=== PATIENT | female | born 1940 | race Hispanic/Latino ===

== ENCOUNTER 2017-08-11 12:31 | Inpatient (IN) | payer MEDICARE, MEDICAID ==
[~2017-08-11] VITALS: Ht 152.4 cm; Wt 54.4 kg
[~2017-08-11 12:31] MED LIST: A & D OINT1 APPLI1 TOPIC; CEPHALEXIN500 MG ORAL; CITALOPRAM HBR10 M1 ORAL; CITALOPRAM10 MG/5 M1 ORAL; COLACE100 MG ORAL; DEPAKOTE ER500 MG ORAL; DEPAKOTE500 MG PO; DILANTIN100 MG ORAL; FLUTICASONE PRO16 G1 NASAL; FOLIC ACID1 MG ORAL; GABAPENTIN400 MG ORAL; IBUPROFEN200 M2 ORAL; LEVAQUIN250 M1 ORAL; LIDOCAINE700 M1 TP; LIDODERM700 M1 TOPIC; LISINOPRIL10 MG ORAL; LISINOPRIL5 MG ORAL; MIACALCIN1 SPRAYS NASAL; NAPROSYN500 M1 ORAL; NAPROXEN SODIU550 M1 ORAL; OXYCODONE HCL5 MG ORAL; PHENYTOIN100 MG/4 M ORAL; RANITIDINE HCL150 M2 PO; TRAMADOL HCL50 MG ORAL; ULTRAM50 MG ORAL; VITAMIN A TP
--- NOTE | 2017-08-11 12:54 | Emergency Room Report ---
History of Present Illness General Chief Complaint: Multiple Trauma/Fall Source: Patient Present Illness HPI 76YOF with pain to left hip after accidental traumatic fall last night. Patient endorses falling on left hip. Per PMD, patient had x-rays at outpatient facility which showed communicated left hip fracture. Patient denies history of diabetes, hypertension, or CAD. Does not take ASA or other anticoagulation. Allergies: Coded Allergies: AMOXICILLIN (Verified Allergy, Severe, HIVES, RASH, 11/14/13) ACETAMINOPHEN (Verified Allergy, Mild, HIVES, GI UPSET, 11/14/13) CODEINE (Unverified Allergy, Unknown, Rash, 02/26/14) NSAIDS (NON-STEROIDAL ANTI-INFLAMMA (Verified Allergy, Unknown, 02/24/14) Patient allergic to all NSAid's according to Dr. Jarrett. Patient History Past Medical History: none Past Surgical History: none Pertinent Family History: none Social History: Denies: smoking, alcohol use, drug use Now: No Immunizations: UTD Nursing Documentation-PMH Hx Cardiac Problems: Yes Hx Hypertension: Yes Hx Cancer: No Hx Gastrointestinal Problems: Yes Hx Neurological Problems: Yes - Tinnitus Hx Cerebrovascular Accident: No - TINNITUS Hx Alzheimer's Disease: Yes Hx Seizures: Yes Hx Headaches: Yes Review of Systems All Other Systems: negative except mentioned in HPI Physical Exam Vital Signs Date Time Temp Pulse Resp B/P (MAP) Pulse Ox O2 Delivery O2 Flow Rate FiO2 08/11/17 12:33 98.1 74 20 80/48 94 Room Air Sp02 EP Interpretation: reviewed, normal General Appearance: normal inspection, well appearing, no apparent distress, alert, GCS 15, non-toxic Head: normocephalic, atraumatic Eyes: bilateral eye PERRL, bilateral eye EOMI ENT: normal ENT inspection, hearing grossly normal, normal pharynx, no angioedema, normal voice, TMs + canals normal, uvula midline, moist mucus membranes Neck: normal inspection, full range of motion, supple, thyroid normal, no meningismus, no bony tend Respiratory: normal inspection, lungs clear, normal breath sounds, no rhonchi, no respiratory distress, no retraction, no accessory muscle use, no wheezing, speaking full sentences Cardiovascular #1: regular rate, rhythm, no edema, no JVD, normal capillary refill Gastrointestinal: normal inspection, normal bowel sounds, non tender, soft, no mass, no peritonitis, non-distended, no guarding, no hernia, no pulsatile mass Genitourinary: no CVA tenderness Musculoskeletal: normal inspection, back normal, normal range of motion, no calf tenderness, pelvis stable - Left lower Leg: Externally rotated, shortened. 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 Matthews for medical surgical admission at [address] Grace consulted for Ortho at 220pm med surg admit Per verbal report from Radiologist, left comminuted hip fx Xrays of hip and pelvis pending Leuks 16k on labs but no shift. No cough/SOB or fever/chills suggestive of PNA. Unlikely UTI. Abd soft, NT. Likely stress reaction from fall/fx Rhythm Strip Diag. Results EP Interpretation: yes Rate: 74 Rhythm: NSR, no PVC's, no ectopy Last Vital Signs Date Time Temp Pulse Resp B/P (MAP) Pulse Ox O2 Delivery O2 Flow Rate FiO2 08/11/17 12:33 98.1 74 20 80/48 94 Room Air Status: improved Disposition: ADMITTED INPATIENT Condition: Stable JOSE A ARTIS M.D. Aug 11, 2017 12:54
[2017-08-11 13:04] VITALS: BP 104/60
[2017-08-11] MEDS ORDERED: PEPCID20 MG ORAL (13:23)
[2017-08-11] MEDS ORDERED: LOPRESSOR5 MG/5 ML ORAL (13:23)
[2017-08-11] MEDS ORDERED: NEURONTIN400 MG ORAL (13:23)
[2017-08-11] MEDS ORDERED: MILK OF MA400 MG/51 ORAL (13:23)
[2017-08-11] MEDS ORDERED: ATIVAN0.5 MG ORAL (13:23)
[2017-08-11 14:12] LABS: BASOPHILS % (AUTO) 0.5 % (0.0-2.0); EOSINOPHILS % (AUTO) 1.5 % (0.0-3.0); HEMATOCRIT 39.3 % (37.0-47.0); LYMPHOCYTES % (AUTO) 16.1 % (20.0-45.0); MEAN CORPUSCULAR VOLUME 105 FL (80-99); MONOCYTES % (AUTO) 9.3 % (1.0-10.0); NEUTROPHILS % (AUTO) 72.5 % (45.0-75.0); PLATELET COUNT 231 K/UL (150-450); RED BLOOD COUNT 3.75 M/UL (4.20-5.40); RED CELL DISTRIBUTION WIDTH 11.6 % (11.6-14.8); WHITE BLOOD COUNT 16.7 K/UL (4.8-10.8)
[2017-08-11 14:18] LABS: ANION GAP 11 mmol/L (5-15); BLOOD UREA NITROGEN 33 mg/dL (7-18); CALCIUM 8.6 MG/DL (8.5-10.1); CARBON DIOXIDE 27 MMOL/L (21-32); CHLORIDE 104 MMOL/L (98-107); POTASSIUM 4.9 MMOL/L (3.5-5.1); SODIUM 141 MMOL/L (136-145)
[2017-08-11 14:23] LABS: ALANINE AMINOTRANSFERASE 43 U/L (12-78); ALBUMIN/GLOBULIN RATIO 0.7 (1.0-2.7); ALKALINE PHOSPHATASE 82 U/L (46-116); ASPARTATE AMINO TRANSFERASE 37 U/L (15-37); BILIRUBIN,TOTAL 0.4 MG/DL (0.2-1.0)
--- NOTE | 2017-08-11 14:30 | Diagnostic Imaging Report ---
Indication: Pain status post fall Technique: CT of the left hip was performed utilizing automated exposure control without intravenous contrast material. Axial and sagittal and coronal images were generated. CT dose: Total DLP 847.92 mGycm; CTDI vol 29.58 mGy Comparison: CT of the pelvis 08/11/2014 Findings: There is an acute, mildly comminuted and displaced intertrochanteric fracture of the left femur. Limb foreshortening with upward displacement of the femoral shaft. No additional acute fracture is identified. There is mild overlying soft tissue swelling. There is remote/healed fracture deformity of the left inferior pubic ramus and left acetabulum, although the latter is very subtle. There are mild degenerative changes of the left hip manifested by very mild subchondral cystic change and tiny marginal osteophytes. No right hip fractures identified. Symphysis pubis within normal limits. Degenerative changes are partially visualized in the lower lumbar spine. Images of the visceral pelvis to measure diverticulosis without evidence to suggest acute diverticulitis. Bladder unremarkable in appearance. Uterus is atrophic. Impression: Acute, mildly comminuted and displaced intertrochanteric fracture of the left femur. Remote/healed fracture deformity of the left inferior pubic ramus and left acetabulum. Diverticulosis without evidence of acute diverticulitis. The CT scanner at [facility] is accredited by the [employer] and the scans are performed using protocols designed to limit radiation exposure to as low as reasonably achievable to attain images of sufficient resolution adequate for diagnostic evaluation.
--- NOTE | 2017-08-11 14:49 | Diagnostic Imaging Report ---
Indication: Pain Technique: 1. AP view of the pelvis 2. 2 views of the left hip Comparison: Correlation made to concurrent CT. Findings: Acute comminuted and displaced intertrochanteric fracture of the left femur. There is some foreshortening of the left leg. Left hip joint is preserved. There is remote fracture deformity of the left inferior pubic ramus. No right hip fracture identified. Bowel gas pattern is nonobstructive. No acute osseous abnormality seen. Atherosclerotic vascular opacification is noted. Impression: Acute, comminuted and displaced trochanteric fracture of the left femur.
[2017-08-11 14:55] VITALS: BP 103/55
[2017-08-11 16:09] VITALS: BP 96/49
[2017-08-11 16:45] VITALS: BP 106/56
[2017-08-11] MEDS ORDERED: LORazepam 0.5mg tab ORAL PRN (18:30)
[2017-08-11] MEDS ORDERED: Milk of Magnesia 30ml Ud ORAL PRN (18:30)
[2017-08-11] MEDS ORDERED: Lacri-Lube Opth Oint 3.5gm BOTH EYES ONE (18:30)
[2017-08-11] MEDS ORDERED: Artificial Tears 1.4% Op Soln BOTH EYES PRN (18:45)
--- NOTE | 2017-08-11 19:20 | Consultation ---
History of Present Illness General Date patient seen: Aug 11, 2017 Chief Complaint: Multiple Trauma/Fall Present Illness HPI 76 yo female with pain to left hip after accidental traumatic fall last night. The pt has hx of anxiety the pt is currently on depakote. the pt was seen in er for anxiety. the pt denied any suicidal/hi. the pt was in pain. the pt is not endorsing manic/psychotic sxs. Allergies: Coded Allergies: AMOXICILLIN (Verified Allergy, Severe, HIVES, RASH, 11/14/13) ACETAMINOPHEN (Verified Allergy, Mild, HIVES, GI UPSET, 11/14/13) CODEINE (Unverified Allergy, Unknown, Rash, 02/26/14) NSAIDS (NON-STEROIDAL ANTI-INFLAMMA (Verified Allergy, Unknown, 02/24/14) Patient allergic to all NSAid's according to Dr. Jarrett. Medication History Scheduled Calcitonin Wilson (Miacalcin), 1 SPRAYS NASAL DAILY, (Reported) Cephalexin* (Keflex*), 500 MG ORAL EVERY 6 HOURS, (Reported) Citalopram Hydrobromide (Citalopram Hbr), 10 MG ORAL DAILY, (Reported) Divalproex Sodium (Depakote), 500 MG PO BID, (Reported) Docusate Sodium* (Colace*), 100 MG ORAL TWICE A DAY, (Reported) Famotidine (Pepcid), 20 MG ORAL BEDTIME, (Reported) Fluticasone Propionate* (Fluticasone Propionate*), 1 SPRAY NASAL DAILY, ( Reported) Folic Acid* (Folic Acid*), 1 MG ORAL DAILY, (Reported) Gabapentin* (Gabapentin*), 400 MG ORAL THREE TIMES A DAY, (Reported) Gabapentin* (Neurontin*), 400 MG ORAL THREE TIMES A DAY, (Reported) Levofloxacin* (Levaquin*), 250 MG ORAL DAILY, (Reported) Lidocaine (Lidocaine), 700 MG TP DAILY, (Reported) Lisinopril* (Lisinopril*), 10 MG ORAL DAILY, (Reported) Lorazepam* (Ativan*), 0.5 MG ORAL Q12HR, (Reported) Magnesium Hydroxide* (Milk Of Magnesia*), 30 ML ORAL DAILY, (Reported) Metoprolol Tartrate* (Lopressor*), 100 MG ORAL BID, (Reported) Naproxen Sodium (Naproxen Sodium), 550 MG ORAL TWICE A DAY, (Reported) Phenytoin Sodium Extended* (Dilantin*), 300 MG ORAL BEDTIME, (Reported) Ranitidine HCl (Ranitidine HCl), 150 MG PO DAILY, (Reported) Scheduled PRN Oxycodone Hcl Ir* (Roxicodone Ir*), 2.5 MG ORAL Q4H PRN for For Pain, (Reported) Tramadol Hcl* (Ultram*), 50 MG ORAL Q4HR PRN for Moderate Breakthru Pain (5-7), (Reported) Miscellaneous Medications Vits A & D/White Pet/Lanolin (Vitamin A & D Ointment), 113.4 GM TP, (Reported) Patient History Healthcare decision maker Resuscitation status Full Code Advanced Directive on File No Review of Systems Psychiatric: Reports: prior hx, anxiety, emotional problems Physical Exam General Appearance: no apparent distress, alert Neurologic: alert, oriented x 3, responsive, depressed affect Last 24 Hour Vital Signs Date Time Temp Pulse Resp B/P (MAP) Pulse Ox O2 Delivery O2 Flow Rate FiO2 08/11/17 16:45 98.0 72 19 106/56 96 Room Air 08/11/17 16:20 97.8 70 11 96/49 96 Room Air 08/11/17 16:09 97.8 70 11 96/49 96 Room Air 08/11/17 14:55 97.8 76 18 103/55 96 Room Air 08/11/17 13:04 97.8 78 16 104/60 98 Room Air 08/11/17 12:33 98.1 74 20 80/48 94 Room Air Laboratory Tests Test 08/11/17 13:46 White Blood Count 16.7 K/UL (4.8-10.8) H Red Blood Count 3.75 M/UL (4.20-5.40) L Hemoglobin 13.0 G/DL (12.0-16.0) Hematocrit 39.3 % (37.0-47.0) Mean Corpuscular Volume 105 FL (80-99) H Mean Corpuscular Hemoglobin 34.7 PG (27.0-31.0) H Mean Corpuscular Hemoglobin Concent 33.1 G/DL (32.0-36.0) Red Cell Distribution Width 11.6 % (11.6-14.8) Platelet Count 231 K/UL (150-450) Mean Platelet Volume 9.4 FL (6.5-10.1) Neutrophils (%) (Auto) 72.5 % (45.0-75.0) Lymphocytes (%) (Auto) 16.1 % (20.0-45.0) L Monocytes (%) (Auto) 9.3 % (1.0-10.0) Eosinophils (%) (Auto) 1.5 % (0.0-3.0) Basophils (%) (Auto) 0.5 % (0.0-2.0) Prothrombin Time 10.5 SEC (9.30-11.50) Prothromb Time International Ratio 1.0 (0.9-1.1) Sodium Level 141 MMOL/L (136-145) Potassium Level 4.9 MMOL/L (3.5-5.1) Chloride Level 104 MMOL/L (98-107) Carbon Dioxide Level 27 MMOL/L (21-32) Anion Gap 11 mmol/L (5-15) Blood Urea Nitrogen 33 mg/dL (7-18) H Creatinine 1.0 MG/DL (0.55-1.30) Estimat Glomerular Filtration Rate mL/min (>60) Glucose Level 105 MG/DL (74-106) Calcium Level 8.6 MG/DL (8.5-10.1) Total Bilirubin 0.4 MG/DL (0.2-1.0) Aspartate Amino Transf (AST/SGOT) 37 U/L (15-37) Alanine Aminotransferase (ALT/SGPT) 43 U/L (12-78) Alkaline Phosphatase 82 U/L (46-116) Total Protein 7.6 G/DL (6.4-8.2) Albumin 3.0 G/DL (3.4-5.0) L Globulin 4.6 g/dL Albumin/Globulin Ratio 0.7 (1.0-2.7) L Height (Feet): 5 Height (Inches): 0.00 Weight (Pounds): 120 Medications Current Medications Medications (Trade) Dose Ordered Sig/Arthur Route PRN Reason Start Time Stop Time Status Last Admin Dose Admin Artificial Tears (Akwa-Tears) 1 drop DAILY PRN BOTH EYES Dry Eyes 08/11/17 18:45 09/10/17 18:44 Calcitonin Wilson (Miacalcin) 1 sprays DAILY NASAL 08/12/17 09:00 09/11/17 08:59 Divalproex Sodium (Depakote) 500 mg EVERY 12 HOURS ORAL 08/11/17 21:00 09/10/17 20:59 Famotidine (Pepcid) 20 mg DAILY ORAL 08/12/17 09:00 09/11/17 08:59 Fluticasone Propionate (Flonase) 2 spray DAILY NASAL 08/12/17 09:00 09/11/17 08:59 Folic Acid (Folate) 1 mg DAILY ORAL 08/12/17 09:00 09/11/17 08:59 Gabapentin (Neurontin) 400 mg Q8HR ORAL 08/11/17 22:00 09/10/17 21:59 Lorazepam (Ativan) 0.5 mg EVERY 12 HOURS PRN ORAL For Anxiety 08/11/17 18:30 08/18/17 18:29 Magnesium Hydroxide (Mom) 30 ml DAILYPRN PRN ORAL Constipation 08/11/17 18:30 09/10/17 18:29 Metoprolol Tartrate (Lopressor) 100 mg EVERY 12 HOURS ORAL 08/11/17 21:00 09/10/17 20:59 Phenytoin (Dilantin) 300 mg BEDTIME ORAL 08/11/17 21:00 09/10/17 20:59 Sodium Chloride 1,000 ml @ 70 mls/hr [id number] IV 08/11/17 18:00 09/10/17 17:59 08/11/17 18:02 Assessment/Plan Status: stable Assessment/Plan Anxiety d/o mdd ativan El Hernandez M.D. Aug 11, 2017 19:20
[2017-08-11 19:59] VITALS: BP 109/65
[2017-08-11] MEDS: Phenytoin 100mg cap ORAL SCH (21:10)
[2017-08-11] MEDS: Depakote 500mg tab ORAL SCH (21:10)
[2017-08-11 23:53] VITALS: BP 110/60
[2017-08-12] VITALS (20 sets, daily range): BP systolic 72–155; BP diastolic 35–75
[2017-08-12] MEDS ORDERED: Lidocaine 1% Plain 30 ml INJ ONE ×2 (08:00→15:00)
[2017-08-12] MEDS ORDERED: Midazolam 2mg/2ml Inj ONE (08:00)
[2017-08-12] MEDS ORDERED: LR 1000ml ONE (08:00)
[2017-08-12] MEDS ORDERED: NS Irrig 1000ml ONE (08:00)
[2017-08-12] MEDS ORDERED: Sterile Water Irrig 1000ml IRRIG ONE (08:00)
[2017-08-12] MEDS ORDERED: Flonase Nasal Inhaler 16gm NASAL SCH (09:00)
[2017-08-12] MEDS ORDERED: Lisinopril 10mg tab ORAL SCH (09:00)
[2017-08-12] MEDS: Depakote 500mg tab ORAL SCH ×2 (09:01→23:06)
[2017-08-12] MEDS: Docusate 100mg cap ORAL SCH ×2 (09:01→16:49)
[2017-08-12] MEDS ORDERED: traMADol 50mg tab ORAL PRN (12:45)
--- NOTE | 2017-08-12 13:47 | Consultation ---
Consult Note Consult Note asked to eval for Azotemin and fluctuating BP HPI 76YOF with pain to left hip after accidental traumatic fall last night. Patient endorses falling on left hip. Per PMD, patient had x-rays at outpatient facility which showed communicated left hip fracture. Patient denies history of diabetes, hypertension, or CAD. Does not take ASA or other anticoagulation. Allergies: AMOXICILLIN (Verified Allergy, Severe, HIVES, RASH, 11/14/13) ACETAMINOPHEN (Verified Allergy, Mild, HIVES, GI UPSET, 11/14/13) CODEINE (Unverified Allergy, Unknown, Rash, 02/26/14) NSAIDS (NON-STEROIDAL ANTI-INFLAMMA (Verified Allergy, Unknown, 02/24/14) Patient allergic to all NSAid's according to Dr. Jarrett. Hx Cardiac Problems: Yes Hx Hypertension: Yes Hx Gastrointestinal Problems: Yes Hx Neurological Problems: Yes - Tinnitus + TINNITUS Hx Alzheimer's Disease: Yes Hx Seizures: Yes Hx Headaches: Yes examined and data reviewed Assessment/Plan Closed left hip fracture Dehydration Hypotension on presentation HTN Osteoporosis Sz disorder Hydrate- correct lytes monitor H&H adjust BP meds Per ortho GIANNA AYALA Aug 12, 2017 13:47
[2017-08-12] MEDS ORDERED: Heparin 2000 units/Ns 1000ml INJ SCH (14:00)
[2017-08-12] MEDS ORDERED: Lidocaine 1% Plain 30 ml INJ SCH (14:00)
[2017-08-12] MEDS ORDERED: D5NS 1,000 ML IV SCH (14:30)
[2017-08-12] MEDS ORDERED: Heparin 2000 units/Ns 1000ml INJ ONE (15:00)
--- NOTE | 2017-08-12 15:27 | General Progress Note ---
Assessment/Plan Problem List: (1) Pain in limb ICD Codes: M79.609 - Pain in limb SNOMED: 16373502 (2) Seizure disorder ICD Codes: G40.909 - Seizure disorder SNOMED: 237623357 (3) Gait disturbance, post-stroke ICD Codes: I69.398 - Gait disturbance, post-stroke; R26.9 - Unspecified abnormalities of gait and mobility SNOMED: 284513875 (4) stroke, old (5) Closed left hip fracture ICD Codes: S72.002A - Fracture of unspecified part of neck of left femur, initial encounter for closed fracture SNOMED: 856618678 Qualifiers: Qualified Codes: S72.002A - Fracture of unspecified part of neck of left femur, initial encounter for closed fracture Status: progressing Assessment/Plan afebrile seizure s/p left hip fracture surgical clearance per dr freda garcia Subjective ROS Limited/Unobtainable: Yes Allergies: Coded Allergies: AMOXICILLIN (Verified Allergy, Severe, HIVES, RASH, 11/14/13) ACETAMINOPHEN (Verified Allergy, Mild, HIVES, GI UPSET, 11/14/13) CODEINE (Unverified Allergy, Unknown, Rash, 02/26/14) NSAIDS (NON-STEROIDAL ANTI-INFLAMMA (Verified Allergy, Unknown, 02/24/14) Patient allergic to all NSAid's according to Dr. Jarrett. Objective Last 24 Hour Vital Signs Date Time Temp Pulse Resp B/P (MAP) Pulse Ox O2 Delivery O2 Flow Rate FiO2 08/12/17 11:25 98.4 77 20 127/69 92 08/12/17 09:01 155/63 08/12/17 09:01 75 155/63 08/12/17 08:00 97.7 87 20 140/75 100 08/12/17 04:00 97.7 75 18 155/63 92 Room Air 08/11/17 23:53 97.9 82 20 110/60 93 Room Air 08/11/17 21:00 75 109/65 08/11/17 19:59 97.5 75 20 109/65 91 Room Air 08/11/17 16:45 98.0 72 19 106/56 96 Room Air 08/11/17 16:20 97.8 70 11 96/49 96 Room Air 08/11/17 16:09 97.8 70 11 96/49 96 Room Air Intake and Output 08/11/17 08/12/17 19:00 07:00 Intake Total 630 ml Balance 630 ml Intake IV Total 630 ml # Voids 3 # Bowel Movements 2 Height (Feet): 5 Height (Inches): 0.00 Weight (Pounds): 120 Neck: supple Cardiovascular: normal rate Respiratory/Chest: lungs clear Abdomen: soft Kvng Estrada MD Aug 12, 2017 15:27
--- NOTE | 2017-08-12 15:45 | History and Physical Report ---
NOTE: POOR AUDIO HISTORY OF PRESENT ILLNESS: The patient is here because of comminuted fracture of the left hip on the x-ray, also leukocytosis, which could be most likely due to the left fracture. The patient is complaining of left hip pain. Denies nausea, vomiting, or diarrhea. No chest pain. No shortness of breath. Denies cough. PAST MEDICAL HISTORY: Organic brain syndrome, history of GERD, history of hypertension, history of seizure disorder, history of allergic rhinitis, history of anemia, polyneuropathy, major depression, anxiety, and insomnia. PAST SURGICAL HISTORY: Denies. ALLERGIES: No known allergies. MEDICATIONS: Celexa, Colace, famotidine, folic acid, gabapentin, lisinopril, and ranitidine. FAMILY HISTORY: Noncontributory. SOCIAL HISTORY: Unable to obtain. REVIEW OF SYSTEMS: Unable to obtain. Poor historian. PHYSICAL EXAMINATION: VITAL SIGNS: Temperature is 98.1, pulse is 74, and blood pressure 104/60. HEENT: PERRLA. NECK: Supple. No lymphadenopathy. CHEST: Clear to auscultation. GASTROINTESTINAL: Soft, nontender, and nondistended. No organomegaly. EXTREMITIES: Decreased range of motion, likely due to pain. NEUROLOGIC: Oriented to name. She is at baseline. LABORATORY DATA: WBC of 16.7, hemoglobin 13, and platelets of 231,000. Sodium 141, potassium 4.1, BUN of 33, creatinine 1, and glucose of 105. ASSESSMENT AND PLAN: 1. Leukocytosis, could be also due to stress fracture. 2. Left hip pain due to fracture. I have asked Dr. Jigar Doyle to see the patient for possible open reduction and internal fixation and Dr. Umberto Natarajan has been consulted for ID, and Dr. Roland has been consulted for the hypotension/dehydration. Kvng Estrada M.D. DR: IRVIN JOB#: [id number] CC:
[2017-08-12] MEDS ORDERED: cloNIDine 1000mcg/10ml inj ONE (16:26)
[2017-08-12] MEDS ORDERED: Bupivacaine 0.5% Inj 30 ml vial INJ ONE (16:26)
[2017-08-12] MEDS ORDERED: LR 1000ml 1,000 ML IVLG SCH (16:50)
--- NOTE | 2017-08-12 16:59 | Anethesia Preoperative Eval ---
Anesthesia Pre-op PMH/ROS General Date of Evaluation: Aug 12, 2017 Time of Evaluation: 17:26 Anesthesiologist: Lola ASA Score: ASA 4 - Emergency Mallampati Score Class I : Soft palate, uvula, fauces, pillars visible Class II: Soft palate, uvula, fauces visible Class III: Soft palate, base of uvula visible Class IV: Only hard plate visible Mallampati Classification: Class II Surgeon: Vivek Diagnosis: L Hip Fx Surgical Procedure: ORIF L Hip Anesthesia History: none Family History: no anesthesia problems Allergies: Coded Allergies: AMOXICILLIN (Verified Allergy, Severe, HIVES, RASH, 11/14/13) ACETAMINOPHEN (Verified Allergy, Mild, HIVES, GI UPSET, 11/14/13) CODEINE (Unverified Allergy, Unknown, Rash, 02/26/14) NSAIDS (NON-STEROIDAL ANTI-INFLAMMA (Verified Allergy, Unknown, 02/24/14) Patient allergic to all NSAid's according to Dr. Jarrett. Medications: see eMAR Past Medical History Cardiovascular: Reports: HTN Gastrointestinal/Genitourinary: Reports: GERD Neurologic/Psychiatric: Reports: dementia - Alzheimers, Seizures, CVA Hematology/Immune: Reports: anemia Anesthesia Pre-op Phys. Exam Physician Exam Last Vital Signs Date Time Temp Pulse Resp B/P (MAP) Pulse Ox O2 Delivery O2 Flow Rate FiO2 08/12/17 15:57 98.0 74 20 122/59 92 08/12/17 04:00 Room Air Constitutional: NAD Neurologic: CN 2-12 intact Cardiovascular: RRR Respiratory: CTA Gastrointestinal: S/NT/ND Airway Exam Mallampati Score: Class II MO: limited ROM: limited Teeth: missing Anesthesia Pre-op A/P Labs Chemistry Test 08/12/17 14:30 C-Reactive Protein, Quantitative 13.7 mg/dL (0.00-0.90) H Risk Assessment & Plan Assessment: ASA 4E Plan: Spinal Status Change Before Surgery: No Pre-Antibiotics Dru Gram Ancef IV Given Within 1 Hr of Incision: Yes Time Given: 18:01 Lc Davila MD Aug 12, 2017 16:59
[2017-08-12] MEDS ORDERED: Labetalol 5mg/ml 20ml vial IV PRN (17:00)
[2017-08-12] MEDS ORDERED: Atropine Inj 1mg/10ml Syr IV PRN (17:00)
[2017-08-12] MEDS ORDERED: LORazepam Inj 2mg/ml 1ml IV PRN (17:00)
[2017-08-12] MEDS ORDERED: Midazolam 2mg/2ml Inj IVP PRN (17:00)
[2017-08-12] MEDS ORDERED: fentaNYL 100 mcg/2 mL IV PRN (17:00)
[2017-08-12] MEDS ORDERED: DiphenhydrAMINE 50mg/ml Inj IVP PRN (17:00)
--- NOTE | 2017-08-12 17:00 | Immediate Post-Op Evaluation ---
Immediate Post-Op Evalulation Immediate Post-Op Evalulation Procedure: ORIF L Hip Date of Evaluation: Aug 12, 2017 Time of Evaluation: 19:15 IV Fluids: 300 LR Blood Products: 0 Estimated Blood Loss: 50 Urinary Output: 100 Blood Pressure Systolic: 131 Blood Pressure Diastolic: 98 Pulse Rate: 88 Respiratory Rate: 16 O2 Sat by Pulse Oximetry: 100 Pain Score (1-10): 1 Nausea: No Vomiting: No Complications 0 Patient Status: awake, reacts, patent, none Dru Gram Ancef IV Given Within 1 Hr of Incision: Yes Time Given: 18:01 Lc Davila MD Aug 12, 2017 17:00
[2017-08-12] MEDS ORDERED: Bacitracin 50000 Units Vial ONE (17:08)
[2017-08-12] MEDS ORDERED: NeoSporin Gu Irrig 1ml Amp IRRIG ONE (17:08)
[2017-08-12] MEDS ORDERED: EPINEPHrine 1mg/1ml Amp ONE (17:13)
[2017-08-12] MEDS ORDERED: Bupivacaine 0.25% Inj 30ml INJ ONE (17:13)
[2017-08-12] MEDS ORDERED: Kenalog-40 1ml Vial ONE (17:30)
[2017-08-12] MEDS ORDERED: Duramorph PF 10mg/10ml amp IV ONE (17:30)
[2017-08-12] MEDS ORDERED: Morphine Sulfate PF 10 ML ONE (17:30)
[2017-08-12] MEDS ORDERED: Ketorolac 30mg Inj ONE (17:30)
[2017-08-12] MEDS ORDERED: D5 1/2NS w/KCl 20mEq 1,000 ML IV SCH (17:41)
--- NOTE | 2017-08-12 17:41 | Pre-Procedure Note/Attestation ---
Pre-Procedure Note/Attestation Complete Prior to Procedure Planned Procedure: left Procedure Narrative: hip orif Indications for Procedure Pre-Operative Diagnosis: left hip fracture Attestation I attest that I discussed the nature of the procedure; its benefits; risks and complications; and alternatives (and the risks and benefits of such alternatives ), prior to the procedure, with the patient (or the patient's legal small business representative). I attest that, if there was a reasonable possibility of needing a blood transfusion, the patient (or the patient's legal small business representative) was given the [facility] standardized written summary, pursuant to the [place] Blood Safety Act ([place] Health and Safety Code # 1645, as amended). I attest that I re-evaluated the patient just prior to the surgery and that there has been no change in the patient's H&P, except as documented below: JOHN GRACIA Aug 12, 2017 17:41
--- NOTE | 2017-08-12 17:42 | Operative Note - PDOC ---
Operative Note Operative Note Pre-op Diagnosis: left hip fracture Procedure: left hip orif Post-op Diagnosis: same as pre-op plus Operative Findings: consistent w/pre-op dx studies Anesthesia: regional Specimen: none Complications: none Condition: stable Estimated Blood Loss: none Implant(s) used?: Yes JOHN GRACIA Aug 12, 2017 17:42
[2017-08-12] MEDS ORDERED: Fleet's Enema 133ml RECTAL PRN ×2 (17:45→19:00)
[2017-08-12] MEDS ORDERED: Morphine Sulfate 2mg/ml Inj IVP PRN ×4 (17:45→23:45)
[2017-08-12] MEDS ORDERED: HYDROcodone/Acetamin 7.5/325 tab ORAL PRN ×2 (17:45→20:45)
[2017-08-12] MEDS ORDERED: Milk of Magnesia 30ml Ud ORAL PRN (17:45)
[2017-08-12] MEDS ORDERED: Norco 5mg/325mg tab ORAL PRN ×2 (17:45→20:45)
--- NOTE | 2017-08-12 17:47 | Cardiology Report ---
APPROVED REPORT EKG Measurement Heart [id number] Normal sinus rhythm Normal ECG
[2017-08-12] MEDS ORDERED: Docusate 100mg cap ORAL SCH (18:00)
[2017-08-12] MEDS ORDERED: Dyna-Hex 2% Top Sol 2oz TOPIC SCH ×2 (20:00)
[2017-08-12] MEDS ORDERED: Docusate Sod/Senna tab ORAL SCH (20:32)
--- NOTE | 2017-08-12 20:48 | Consultation ---
DATE OF CONSULTATION: 08/11/2017 ORTHOPEDIC CONSULTATION CONSULTING PHYSICIAN: Jigar Doyle M.D. REQUESTING PHYSICIAN: Kvng Estrada M.D. CHIEF COMPLAINT: Left hip pain. HISTORY OF PRESENT ILLNESS: The patient is a pleasant 76-year-old female, who presented to the ER with complaints of left hip pain. Imaging studies showed a comminuted left intertrochanteric hip fracture. Orthopedic consultation obtained for further care and recommendation. The patient has pain in the left hip. She denies any shortness of breath or chest pain. PHYSICAL EXAMINATION: Examination shows pain with internal and external rotation of the left hip. Posterior calf is soft. Neurovascular exam is normal. Dorsalis pedis +2. IMAGING STUDIES: Show a comminuted intertrochanteric hip fracture with significant moderate osteopenia. ASSESSMENT: Left comminuted intertochanteric hip fracture. DISCUSSION: At this point, we do proceed with open reduction and internal fixation. Risks, limitations, expectations, and complications of the procedure were discussed in detail. All questions are addressed. We are going to optimize her for surgery tomorrow. She is cleared for surgery. We will proceed tomorrow. She will be made NPO in anticipation of surgery tomorrow. Jigar Doyle M.D. DR: MARTIN JOB#: [id number] CC:
--- NOTE | 2017-08-12 22:05 | Cardiology Progress Note ---
Assessment/Plan Assessment/Plan The patient is seen and examined, full consult note will be dictated. Objective Last 24 Hour Vital Signs Date Time Temp Pulse Resp B/P (MAP) Pulse Ox O2 Delivery O2 Flow Rate FiO2 08/12/17 22:00 84 15 94/44 99 Nasal Cannula 3.0 08/12/17 21:45 91 17 88/53 98 Nasal Cannula 3.0 08/12/17 21:30 86 15 98/42 99 Nasal Cannula 3.0 08/12/17 21:15 89 21 91/47 99 Nasal Cannula 3.0 08/12/17 21:00 91 22 92/44 99 Nasal Cannula 3.0 08/12/17 20:45 93 20 89/40 99 Nasal Cannula 3.0 08/12/17 20:30 91 20 88/45 99 Nasal Cannula 3.0 08/12/17 20:15 91 20 95/38 99 Simple Mask 8.0 08/12/17 20:00 92 20 97/39 99 Simple Mask 8.0 08/12/17 19:45 89 20 88/40 99 Simple Mask 8.0 08/12/17 19:30 88 20 92/35 99 Simple Mask 8.0 08/12/17 19:14 86 20 109/45 99 Simple Mask 8.0 08/12/17 19:09 88 20 88/42 99 Simple Mask 8.0 08/12/17 19:08 88 16 100 08/12/17 19:04 97.1 83 20 72/45 99 Simple Mask 8.0 08/12/17 15:57 98.0 74 20 122/59 92 08/12/17 11:25 98.4 77 20 127/69 92 08/12/17 09:01 155/63 08/12/17 09:01 75 155/63 08/12/17 08:00 97.7 87 20 140/75 100 08/12/17 04:00 97.7 75 18 155/63 92 Room Air 08/11/17 23:53 97.9 82 20 110/60 93 Room Air Intake and Output 08/11/17 08/12/17 19:00 07:00 Intake Total 630 ml Balance 630 ml Intake IV Total 630 ml # Voids 3 # Bowel Movements 2 Laboratory Tests Test 08/12/17 14:30 C-Reactive Protein, Quantitative 13.7 mg/dL (0.00-0.90) H EUFEMIA LACEY Aug 12, 2017 22:05
--- NOTE | 2017-08-12 23:00 | Operative Note - Dictated ---
DATE OF OPERATION: 08/12/2017 PREOPERATIVE DIAGNOSIS: Left comminuted intertrochanteric hip fracture. POSTOPERATIVE DIAGNOSIS: Left comminuted intertrochanteric hip fracture. PROCEDURE: Open reduction and internal fixation of the left hip intertrochanteric fracture with intramedullary device. SURGEON: Jigar Doyle M.D. ANESTHESIA: Spinal. INDICATION FOR PROCEDURE: The patient had a comminuted intertrochanteric hip fracture. She was indicative for operative fixation. Risks, limitations, expectations, and complications of the procedure were discussed in detail. All questions were addressed. DESCRIPTION OF PROCEDURE: Informed consent was obtained. The patient was brought to the operating room and placed supine under spinal anesthesia. The patient was then carefully placed on the fracture table. Reduction under fractional fluoroscopic imaging was performed. Left hip was prepped and draped in a sterile manner. Ancef was administered. Time-out was performed. A standard lateral skin incision was then made. Guidewire was put in the proximal aspect of the femur. The proximal aspect of the femur was opened up with opening reamer. A short gamma nail was left in place. Through a second stab incision, a 95 mm cannulated screw was then placed through the neck-head junction. Through a third stab incision, a 32 mm distal locking screw was placed. The targeting device removed. Portal sites were copiously irrigated. Hemostasis was done using electrocautery. The fascia was approximated using 1-0 Vicryl suture, 2-0 Vicryl suture, and 3-0 Monocryl sutures. Jigar Doyle M.D. DR: LENCHO JOB#: [id number] CC:
[2017-08-12] MEDS: Phenytoin 100mg cap ORAL SCH (23:08)
[2017-08-12] MEDS: D5NS 1,000 ML IV SCH (23:57)
[2017-08-13] VITALS: BP 91/51
--- NOTE | 2017-08-13 | Progress Note ---
DATE: 08/12/2017 SUBJECTIVE: The patient has been having more anxiety today and taken for hip x-ray and CT scan. She is complaining of pain and has more anxiety today. MENTAL STATUS EXAMINATION: The patient is alert and oriented x3. Mood is neutral. Affect is constricted. Congruent with mood. Thought process is concrete. Thought content, no suicidal or homicidal ideation. ASSESSMENT: Anxiety disorder. PLAN: Continue with current medications. El Doss M.D. DR: Nadine JOB#: [id number] CC:
[2017-08-13] MEDS ORDERED: ceFAZolin sod 2 GM in D5W 110 ML IV SCH ×4 (01:00)
[2017-08-13] MEDS ORDERED: traMADol 50mg tab ORAL PRN (01:00)
[2017-08-13 04:00] VITALS: BP 98/44
[2017-08-13 05:34] LABS: HEMATOCRIT 26.2 % (37.0-47.0); MEAN CORPUSCULAR VOLUME 105 FL (80-99); PLATELET COUNT 86 K/UL (150-450); RED CELL DISTRIBUTION WIDTH 11.8 % (11.6-14.8); WHITE BLOOD COUNT 13.5 K/UL (4.8-10.8)
[2017-08-13 06:12] LABS: ALANINE AMINOTRANSFERASE 25 U/L (12-78); ALBUMIN/GLOBULIN RATIO 0.6 (1.0-2.7); ALKALINE PHOSPHATASE 52 U/L (46-116); ANION GAP 10 mmol/L (5-15); ASPARTATE AMINO TRANSFERASE 18 U/L (15-37); BILIRUBIN,TOTAL 0.4 MG/DL (0.2-1.0); BLOOD UREA NITROGEN 13 mg/dL (7-18); CALCIUM 7.2 MG/DL (8.5-10.1); CARBON DIOXIDE 20 MMOL/L (21-32); CHLORIDE 108 MMOL/L (98-107); CHOLESTEROL 101 MG/DL (< 200); CREATINE KINASE 153 U/L (26-308); CREATININE 0.6 MG/DL (0.55-1.30); FERRITIN 261 NG/ML (8-388); GAMMA GLUTAMYL TRANSPEPTIDASE 104 U/L (5-85); HDL CHOLESTEROL 36 MG/DL (40-60); PHOSPHORUS 2.6 MG/DL (2.5-4.9); POTASSIUM 3.5 MMOL/L (3.5-5.1); SODIUM 138 MMOL/L (136-145); TRIGLYCERIDES 50 MG/DL (30-150)
[2017-08-13 06:43] LABS: % IRON SATURATION 29 % (15-50); IRON 51 ug/dL (50-175); TOTAL IRON BINDING CAPACITY 177 ug/dL (250-450)
--- NOTE | 2017-08-13 07:45 | Consultation ---
DATE OF CONSULTATION: 08/12/2017 CARDIOLOGY CONSULTATION CONSULTING PHYSICIAN: Rafael Jasmine M.D. REFERRING PHYSICIAN: Kvng Estrada M.D. REASON FOR CONSULTATION: Preoperative cardiac evaluation for noncardiac surgery. HISTORY OF PRESENT ILLNESS: The patient is a very unfortunate 76-year-old female, who presents to the hospital with left knee pain after accidents, traumatic fall that occurred last night. The patient upon arrival to the emergency department underwent x-ray and was found to have a fracture of the neck of the left femur. She is awaiting open reduction and internal fixation of the left hip by Dr. Vivek barrientos. Cardiology consultation was made at the request of Dr. Estrada for preoperative cardiac evaluation and obtaining cardiac clearance. The patient does not have prior history of coronary artery disease, congestive heart failure, or cardiac arrhythmias. Prior to this event, she was capable of walking with no limitations. She is admitted to Med/Surg unit for further evaluation and management of fracture of neck of left femur. PAST MEDICAL HISTORY: 1. History of Alzheimer's dementia. 2. History of seizures. 3. History of headaches. 4. History of tinnitus. 5. History of gastroesophageal reflux disease. 6. History of hypertension. PAST SURGICAL HISTORY: None. ALLERGIES: Amoxicillin, acetaminophen, codeine, and nonsteroidal anti-inflammatory drug. MEDICATIONS: List of medications: 1. Calcitonin salmon one spray nasal daily. 2. Keflex 500 mg q.6 h. 3. Citalopram 10 mg p.o. daily. 4. Depakote 500 mg twice daily. 5. Colace 100 mg p.o. twice daily. 6. Pepcid 20 mg p.o. at bedtime. 7. Fluticasone propionate one spray nasal daily. 8. Folic acid 1 mg p.o. daily. 9. Gabapentin 400 mg three times a day. 10. Levofloxacin 250 mg p.o. daily for three days. 11. 700 mg p.o. daily. 12. Lisinopril 10 mg p.o. daily. 13. Lorazepam 0.5 mg q.12 h. 14. Milk of magnesia 30 mL p.o. daily. 15. Lopressor 100 mg p.o. twice daily. 16. Naproxen sodium 550 mg twice daily. 17. Oxycodone 2.5 mg q.4 h. p.r.n. pain. 18. Dilantin 300 mg at bedtime. 19. Ranitidine 150 mg p.o. daily. 20. Tramadol 50 mg p.o. q.4 h. as needed moderate pain. 21. Vitamin A and D ointment to apply daily. FAMILY HISTORY: No premature coronary disease in first-degree relatives. REVIEW OF SYSTEMS: HEENT: Denies any headache, diplopia, or blurred vision. CONSTITUTIONAL: Denies any fever, chills, night sweats, or weight loss. CARDIOVASCULAR: Denies any chest pain, shortness breath, PND, orthopnea, or leg swelling. PULMONARY: Denies any cough, hemoptysis, or wheezing. GASTROINTESTINAL: Denies any nausea, vomiting, diarrhea, constipation, abdominal pain, or GI bleed. GENITOURINARY: Denies any hematuria, dysuria, or incontinence. NEUROLOGIC: Denies any motor dysfunction, sensory deficit, or altered speech. MUSCULOSKELETAL: Complaining of left hip pain with tenderness. PHYSICAL EXAMINATION: VITAL SIGNS: Blood pressure was 80/48, pulse of 74, respirations 20, temperature 98.1 degrees Fahrenheit, and O2 saturation is 94% on room air. GENERAL: The patient is a very unfortunate 76-year-old female, in no apparent respiratory distress. Alert and oriented x4. HEENT: Atraumatic, normocephalic. Anicteric. Pupils are equal, round, and reactive to light and accommodation. Extraocular muscles intact. NECK: JVP less than 5 cm. No carotid bruit. Carotid upstrokes 2+ bilaterally. CARDIOVASCULAR: Normal S1 and S2. Regular rate and rhythm. No murmurs, gallops, or rubs. PMI is at the fourth intercostal space at the midclavicular line. LUNGS: Clear to auscultation bilaterally. ABDOMEN: Soft, nontender, and nondistended. No hepatosplenomegaly. Positive bowel sounds. EXTREMITIES: No evidence of edema, clubbing, or cyanosis. Left leg, external rotation is shortened. Significant tenderness of the proximal left femur. LABORATORY AND DIAGNOSTIC DATA: Laboratory findings, WBC 16.7, hemoglobin 13.0, hematocrit 39.3, and platelet count is 231,000. Sodium 141, potassium is 4.9, chloride 104, bicarbonate 27, BUN of 33, creatinine 1.0, and glucose 105. C-reactive protein 13.7. INR is 1.0. A 12-lead electrocardiogram shows sinus rhythm at a rate of [address] and T-wave abnormalities. ASSESSMENT AND PLAN: The patient is a very pleasant 76-year-old female, who is asymptomatic from the cardiac standpoint, no prior history of coronary artery disease or myocardial infarction, who is awaiting for open reduction and internal fixation of left femur, and the patient had a 12-lead electrocardiogram, does not show any evidence of ischemia. The patient is cleared for the above intermediate-risk surgery with the risk of coronary events perioperatively estimated to be less than 1%. In view of her arriving blood pressure to this center, I would consider intravenous bolus 1000 mL of normal saline. The patient will require to have DVT prophylaxis following the procedure for 35 days. I would like to thank, Dr. Estrada, for allowing me to participate in the care of this patient. Rafael Jasmine M.D. DR: RICHARD JOB#: [id number] CC:
[2017-08-13 08:00] VITALS: BP 104/50
--- NOTE | 2017-08-13 08:25 | General Progress Note ---
Assessment/Plan Problem List: (1) Pain in limb ICD Codes: M79.609 - Pain in limb SNOMED: 64587499 (2) Seizure disorder ICD Codes: G40.909 - Seizure disorder SNOMED: 855269257 (3) Gait disturbance, post-stroke ICD Codes: I69.398 - Gait disturbance, post-stroke; R26.9 - Unspecified abnormalities of gait and mobility SNOMED: 613848167 (4) stroke, old (5) Closed left hip fracture ICD Codes: S72.002A - Fracture of unspecified part of neck of left femur, initial encounter for closed fracture SNOMED: 222194711 Qualifiers: Qualified Codes: S72.002A - Fracture of unspecified part of neck of left femur, initial encounter for closed fracture Status: progressing Assessment/Plan afebrile s/p left hip fracture orif needs pt/ot in [facility] for monitering Subjective ROS Limited/Unobtainable: Yes Allergies: Coded Allergies: AMOXICILLIN (Verified Allergy, Severe, HIVES, RASH, 11/14/13) ACETAMINOPHEN (Verified Allergy, Mild, HIVES, GI UPSET, 11/14/13) CODEINE (Unverified Allergy, Unknown, Rash, 02/26/14) NSAIDS (NON-STEROIDAL ANTI-INFLAMMA (Verified Allergy, Unknown, 02/24/14) Patient allergic to all NSAid's according to Dr. Jarrett. Objective Last 24 Hour Vital Signs Date Time Temp Pulse Resp B/P (MAP) Pulse Ox O2 Delivery O2 Flow Rate FiO2 08/13/17 04:00 97.4 84 15 98/44 98 Nasal Cannula 3.0 08/13/17 00:00 97.4 86 15 91/51 98 Nasal Cannula 3.0 08/12/17 23:00 85 08/12/17 22:05 97.8 84 15 94/44 99 Nasal Cannula 3.0 08/12/17 22:00 84 15 94/44 99 Nasal Cannula 3.0 08/12/17 21:45 91 17 88/53 98 Nasal Cannula 3.0 08/12/17 21:30 86 15 98/42 99 Nasal Cannula 3.0 08/12/17 21:15 89 21 91/47 99 Nasal Cannula 3.0 08/12/17 21:00 84 94/44 08/12/17 21:00 91 22 92/44 99 Nasal Cannula 3.0 08/12/17 20:45 93 20 89/40 99 Nasal Cannula 3.0 08/12/17 20:30 91 20 88/45 99 Nasal Cannula 3.0 08/12/17 20:15 91 20 95/38 99 Simple Mask 8.0 08/12/17 20:00 92 20 97/39 99 Simple Mask 8.0 08/12/17 19:45 89 20 88/40 99 Simple Mask 8.0 08/12/17 19:30 88 20 92/35 99 Simple Mask 8.0 08/12/17 19:14 86 20 109/45 99 Simple Mask 8.0 08/12/17 19:09 88 20 88/42 99 Simple Mask 8.0 08/12/17 19:08 88 16 100 08/12/17 19:04 97.1 83 20 72/45 99 Simple Mask 8.0 08/12/17 15:57 98.0 74 20 122/59 92 08/12/17 11:25 98.4 77 20 127/69 92 08/12/17 09:01 155/63 08/12/17 09:01 75 155/63 Intake and Output 08/12/17 08/13/17 19:00 07:00 Intake Total 2848.75 ml Output Total 400 ml Balance 2448.75 ml Intake Oral 50 ml IV Total 2798.75 ml Output Urine Total 350 ml Estimated Blood Loss 50 ml Laboratory Tests 08/12/17 14:30: C-Reactive Protein, Quantitative 13.7H 08/13/17 04:10: White Blood Count 13.5H, Red Blood Count 2.50L, Hemoglobin 9.0L, Hematocrit 26.2L, Mean Corpuscular Volume 105H, Mean Corpuscular Hemoglobin 35.9H, Mean Corpuscular Hemoglobin Concent 34.2, Red Cell Distribution Width 11.8, Platelet Count 86L, Mean Platelet Volume 6.6, Neutrophils (%) (Auto) , Lymphocytes (%) ( Auto) , Monocytes (%) (Auto) , Eosinophils (%) (Auto) , Basophils (%) (Auto) , Neutrophils % (Manual) [Pending], Lymphocytes % (Manual) [Pending], Platelet Estimate [Pending], Platelet Morphology [Pending], Sodium Level 138, Potassium Level 3.5, Chloride Level 108H, Carbon Dioxide Level 20L, Anion Gap 10, Blood Urea Nitrogen 13, Creatinine 0.6, Estimat Glomerular Filtration Rate , Glucose Level 145H, Hemoglobin A1c 5.7, Uric Acid 3.5, Calcium Level 7.2L, Phosphorus Level 2.6, Magnesium Level 1.4L, Iron Level 51, Total Iron Binding Capacity 177L , Percent Iron Saturation 29, Unsaturated Iron Binding 126, Ferritin 261, Total Bilirubin 0.4, Gamma Glutamyl Transpeptidase 104H, Aspartate Amino Transf (AST/ SGOT) 18, Alanine Aminotransferase (ALT/SGPT) 25, Alkaline Phosphatase 52, Total Creatine Kinase 153, Troponin I 0.124H, Pro-B-Type Natriuretic Peptide 1478H, Total Protein 5.6L, Albumin 2.0L, Globulin 3.6, Albumin/Globulin Ratio 0.6L, Triglycerides Level 50, Cholesterol Level 101, LDL Cholesterol 56, HDL Cholesterol 36L, Cholesterol/HDL Ratio 2.8L, Vitamin B12 Level 1369H, Folate 29.1, Thyroid Stimulating Hormone (TSH) 1.899, Phenytoin (Dilantin) Level 10.1, Valproic Acid (Depakene) Level 44L Height (Feet): 5 Height (Inches): 0.00 Weight (Pounds): 120 Cardiovascular: normal rate Respiratory/Chest: lungs clear Abdomen: soft Kvng Estrada MD Aug 13, 2017 08:25
[2017-08-13] MEDS ORDERED: celeBREX 200mg Cap **SURGERY PATIENTS ONLY ORAL SCH (09:00)
[2017-08-13] MEDS ORDERED: ceFAZolin 2gm/50ml Premix 50 ML IV SCH (09:00)
[2017-08-13] MEDS ORDERED: Docusate Sod/Senna tab ORAL SCH (09:00)
[2017-08-13] MEDS ORDERED: Artificial Tears 1.4% Op Soln BOTH EYES PRN (09:00)
[2017-08-13] MEDS ORDERED: LORazepam 0.5mg tab ORAL PRN (09:00)
[2017-08-13] MEDS ORDERED: Lisinopril 10mg tab ORAL SCH (09:00)
[2017-08-13] MEDS: Flonase Nasal Inhaler 16gm NASAL SCH (09:12)
[2017-08-13] MEDS: Depakote 500mg tab ORAL SCH ×2 (09:14→20:44)
--- NOTE | 2017-08-13 09:15 | Consultation ---
DATE OF CONSULTATION: 08/12/2017 INFECTIOUS DISEASE CONSULTATION CONSULTING PHYSICIAN: Jamshid Begmu M.D. PRIMARY ATTENDING PHYSICIAN: Kvng Estrada M.D. REASON FOR CONSULT: Leukocytosis. HISTORY OF PRESENT ILLNESS: This is a 76-year-old female admitted yesterday from home. She had a fall. She states that when she had sudden tinnitus in her ear and then fall down. Denies passing out. She states that she was able to take stairs rail. After the fall, she has pain in the left hip and lower extremity. At this point, the patient has comminuted intertrochanteric fracture of the left hip that seems to be acute. PAST MEDICAL HISTORY: Significant for stroke, migraine, colitis, and diverticulosis. The patient had multiple falls, had compression fracture of lumbar spine , has history of dementia. ALLERGIES: Allergic to Tylenol, amoxicillin, codeine, and nonsteroidal anti-inflammatory agents. MEDICATIONS: Getting calcitonin, Flonase, folic acid, temazepam, Colace, lisinopril, gabapentin, Depakote, phenytoin, metoprolol, Artificial Tears, lorazepam, magnesium hydroxide, and potassium chloride. SOCIAL HISTORY: Single. Has no children. lives with parents. REVIEW OF SYSTEMS: No fever. No chills. No nausea. No vomiting. No diarrhea. No problem passing urine. No coughing. Seems to have some lapse in the memory. PHYSICAL EXAMINATION: VITAL SIGNS: Temperature 97.7, pulse 75, and blood pressure 155/63. GENERAL APPEARANCE: No acute distress. HEAD AND NECK: [place] conjunctivae. No oral lesion. HEART: Regular. LUNGS: Clear. ABDOMEN: Soft and nontender. EXTREMITIES: She has no edema. Has internal rotation of the left lower extremity. LABORATORY DATA: WBC 16.7, hemoglobin 13, hematocrit 39.3, and platelets 231,000. Sodium 141, potassium 4.9, chloride 104, bicarbonate 27, BUN 33, creatinine 1, and glucose 105. Albumin 3. Hip CT showed acute mildly comminuted and displaced intertrochanteric fracture of the left femur. IMPRESSION: 1. Leukocytosis, likely secondary to fall and fracture of the hip. 2. Left hip fracture. 3. Osteoporosis. 4. History of multiple falls. 5. History of colitis. RECOMMENDATIONS: Observe off antibiotics. We will follow up the cultures. At the end of my exam, I thank Dr. Estrada for involving me in the care of this patient. Jamshid Begum M.D. DR: LUANA JOB#: [id number] CC: DEBRA
--- NOTE | 2017-08-13 10:21 | Infectious Diseases Prog Note ---
Assessment/Plan Assessment/Plan A Leukocytosis improving Left hip fracture s/p ORIF Osteoporosis P: will f/u CXR & UA Subjective ROS Limited/Unobtainable: No Constitutional: Reports: no symptoms Respiratory: Reports: no symptoms Cardiovascular: Reports: no symptoms Gastrointestinal/Abdominal: Reports: no symptoms Genitourinary: Reports: no symptoms Musculoskeletal: Reports: pain, other - had ORIF of left hip Allergies: Coded Allergies: AMOXICILLIN (Verified Allergy, Severe, HIVES, RASH, 11/14/13) ACETAMINOPHEN (Verified Allergy, Mild, HIVES, GI UPSET, 11/14/13) CODEINE (Unverified Allergy, Unknown, Rash, 02/26/14) NSAIDS (NON-STEROIDAL ANTI-INFLAMMA (Verified Allergy, Unknown, 02/24/14) Patient allergic to all NSAid's according to Dr. Jarrett. Objective Vital Signs Last 24 Hour Vital Signs Date Time Temp Pulse Resp B/P (MAP) Pulse Ox O2 Delivery O2 Flow Rate FiO2 08/13/17 09:13 84 104/50 08/13/17 08:00 97.0 84 18 104/50 100 Nasal Cannula 3.0 08/13/17 04:00 97.4 84 15 98/44 98 Nasal Cannula 3.0 08/13/17 00:00 97.4 86 15 91/51 98 Nasal Cannula 3.0 08/12/17 23:00 85 08/12/17 22:05 97.8 84 15 94/44 99 Nasal Cannula 3.0 08/12/17 22:00 84 15 94/44 99 Nasal Cannula 3.0 08/12/17 21:45 91 17 88/53 98 Nasal Cannula 3.0 08/12/17 21:30 86 15 98/42 99 Nasal Cannula 3.0 08/12/17 21:15 89 21 91/47 99 Nasal Cannula 3.0 08/12/17 21:00 84 94/44 08/12/17 21:00 91 22 92/44 99 Nasal Cannula 3.0 08/12/17 20:45 93 20 89/40 99 Nasal Cannula 3.0 08/12/17 20:30 91 20 88/45 99 Nasal Cannula 3.0 08/12/17 20:15 91 20 95/38 99 Simple Mask 8.0 08/12/17 20:00 92 20 97/39 99 Simple Mask 8.0 08/12/17 19:45 89 20 88/40 99 Simple Mask 8.0 08/12/17 19:30 88 20 92/35 99 Simple Mask 8.0 08/12/17 19:14 86 20 109/45 99 Simple Mask 8.0 08/12/17 19:09 88 20 88/42 99 Simple Mask 8.0 08/12/17 19:08 88 16 100 08/12/17 19:04 97.1 83 20 72/45 99 Simple Mask 8.0 08/12/17 15:57 98.0 74 20 122/59 92 08/12/17 11:25 98.4 77 20 127/69 92 Height (Feet): 5 Height (Inches): 0.00 Weight (Pounds): 120 General Appearance: no acute distress HEENT: mucous membranes moist Respiratory/Chest: lungs clear, other - O2 by cannula Abdomen: soft, non tender Extremities: no edema Laboratory Tests Test 08/12/17 14:30 08/13/17 04:10 C-Reactive Protein, Quantitative 13.7 mg/dL (0.00-0.90) H White Blood Count 13.5 K/UL (4.8-10.8) H Red Blood Count 2.50 M/UL (4.20-5.40) L Hemoglobin 9.0 G/DL (12.0-16.0) L Hematocrit 26.2 % (37.0-47.0) L Mean Corpuscular Volume 105 FL (80-99) H Mean Corpuscular Hemoglobin 35.9 PG (27.0-31.0) H Mean Corpuscular Hemoglobin Concent 34.2 G/DL (32.0-36.0) Red Cell Distribution Width 11.8 % (11.6-14.8) Platelet Count 86 K/UL (150-450) L Mean Platelet Volume 6.6 FL (6.5-10.1) Neutrophils (%) (Auto) % (45.0-75.0) Lymphocytes (%) (Auto) % (20.0-45.0) Monocytes (%) (Auto) % (1.0-10.0) Eosinophils (%) (Auto) % (0.0-3.0) Basophils (%) (Auto) % (0.0-2.0) Neutrophils % (Manual) Pending Lymphocytes % (Manual) Pending Platelet Estimate Pending Platelet Morphology Pending Sodium Level 138 MMOL/L (136-145) Potassium Level 3.5 MMOL/L (3.5-5.1) Chloride Level 108 MMOL/L (98-107) H Carbon Dioxide Level 20 MMOL/L (21-32) L Anion Gap 10 mmol/L (5-15) Blood Urea Nitrogen 13 mg/dL (7-18) Creatinine 0.6 MG/DL (0.55-1.30) Estimat Glomerular Filtration Rate mL/min (>60) Glucose Level 145 MG/DL (74-106) H Hemoglobin A1c 5.7 % (4.3-6.0) Uric Acid 3.5 MG/DL (2.6-7.2) Calcium Level 7.2 MG/DL (8.5-10.1) L Phosphorus Level 2.6 MG/DL (2.5-4.9) Magnesium Level 1.4 MG/DL (1.8-2.4) L Iron Level 51 ug/dL (50-175) Total Iron Binding Capacity 177 ug/dL (250-450) L Percent Iron Saturation 29 % (15-50) Unsaturated Iron Binding 126 ug/dL (112-346) Ferritin 261 NG/ML (8-388) Total Bilirubin 0.4 MG/DL (0.2-1.0) Gamma Glutamyl Transpeptidase 104 U/L (5-85) H Aspartate Amino Transf (AST/SGOT) 18 U/L (15-37) Alanine Aminotransferase (ALT/SGPT) 25 U/L (12-78) Alkaline Phosphatase 52 U/L (46-116) Total Creatine Kinase 153 U/L (26-308) Troponin I 0.124 ng/mL (0.000-0.056) Pro-B-Type Natriuretic Peptide 1478 pg/mL (0-125) H Total Protein 5.6 G/DL (6.4-8.2) L Albumin 2.0 G/DL (3.4-5.0) L Globulin 3.6 g/dL Albumin/Globulin Ratio 0.6 (1.0-2.7) L Triglycerides Level 50 MG/DL (30-150) Cholesterol Level 101 MG/DL (< 200) LDL Cholesterol 56 mg/dL (<100) HDL Cholesterol 36 MG/DL (40-60) L Cholesterol/HDL Ratio 2.8 (3.3-4.4) L Vitamin B12 Level 1369 PG/ML (193-986) H Folate 29.1 NG/ML (8.6-58.9) Thyroid Stimulating Hormone (TSH) 1.899 uiU/mL (0.358-3.740) Phenytoin (Dilantin) Level 10.1 ug/mL (10-20) Valproic Acid (Depakene) Level 44 MCG/ML (50-100) L Current Medications Medications (Trade) Dose Ordered Sig/Arthur Route PRN Reason Start Time Stop Time Status Last Admin Dose Admin Artificial Tears (Akwa-Tears) 1 drop DAILY PRN BOTH EYES Dry Eyes 08/13/17 09:00 09/10/17 18:44 Calcitonin [place] (Miacalcin) 1 sprays DAILY NASAL 08/13/17 09:00 09/11/17 08:59 08/13/17 09:12 Dextrose/Sodium Chloride 1,000 ml @ 75 mls/hr [id number] IV 08/12/17 23:45 09/11/17 14:29 08/12/17 23:57 Divalproex Sodium (Depakote) 500 mg EVERY 12 HOURS ORAL 08/13/17 09:00 09/10/17 20:59 08/13/17 09:14 Docusate Sodium (Colace) 100 mg THREE TIMES A DAY ORAL 08/13/17 09:00 09/12/17 08:59 Famotidine (Pepcid) 20 mg BID ORAL 08/13/17 09:00 09/11/17 08:59 08/13/17 09:13 Fluticasone Propionate (Flonase) 2 spray DAILY NASAL 08/13/17 09:00 09/11/17 08:59 08/13/17 09:12 Gabapentin (Neurontin) 400 mg Q8HR ORAL 08/13/17 06:00 09/10/17 21:59 08/13/17 05:39 Lorazepam (Ativan) 0.5 mg EVERY 12 HOURS PRN ORAL For Anxiety 08/13/17 09:00 08/18/17 18:29 Magnesium Hydroxide (Mom) 30 ml DAILYPRN PRN ORAL Constipation 08/13/17 17:45 09/11/17 17:44 Magnesium Sulfate 100 ml @ 100 mls/hr Q1H IVPB 08/13/17 09:00 08/13/17 12:59 08/13/17 09:34 Metoprolol Tartrate (Lopressor) 100 mg EVERY 12 HOURS ORAL 08/13/17 09:00 09/10/17 20:59 08/13/17 09:13 Morphine Sulfate (Morphine Sulfate) 1 mg Q3H PRN IVP Pain scale 1-3 08/12/17 23:45 08/19/17 17:44 Morphine Sulfate (Morphine Sulfate) 2 mg Q3H PRN IVP Moderate Pain (Pain Scale 4-6) 08/12/17 23:45 08/19/17 17:44 Phenytoin (Dilantin) 300 mg BEDTIME ORAL 08/13/17 21:00 09/10/17 20:59 Senna/Docusate Sodium (Iva-Colace) 1 ea TWICE A DAY ORAL 08/13/17 09:00 09/11/17 20:31 08/13/17 09:13 Sodium Phosphate (Fleet's Sodium Phosl Enema) 118 ml DAILYPRN PRN RECTAL Constipation 08/13/17 19:00 09/11/17 17:44 Temazepam (Restoril) 7.5 mg DAILY PRN ORAL Insomnia 08/13/17 09:00 08/19/17 17:44 Tramadol HCl (Ultram) 50 mg Q4H PRN ORAL For Pain 08/13/17 01:00 08/20/17 00:59 ROSALES DE LOS SANTOS Aug 13, 2017 10:21
[2017-08-13] MEDS: Docusate 100mg cap ORAL SCH ×3 (11:09→17:39)
--- NOTE | 2017-08-13 11:24 | Diagnostic Imaging Report ---
Indication: Dyspnea Comparison: 08/10/2014 A single view chest radiograph was obtained. Findings: Mild left perihilar atelectasis versus scarring demonstrated. Heart size is normal. The aorta is calcified. Bones are osteopenic. Fusion hardware noted in the upper cervical spine. IMPRESSION: No acute disease
[2017-08-13 12:00] VITALS: BP 101/52
--- NOTE | 2017-08-13 12:43 | 48 Hour Post Anesthesia Eval ---
Post Anesthesia Evaluation Procedure: ORIF L Hip Date of Evaluation: Aug 13, 2017 Blood Pressure Systolic: 101 0: 52 Pulse Rate: 80 Respiratory Rate: 18 Temperature (Fahrenheit): 97.1 Airway: patent Nausea: No Vomiting: No Hydration Status: adequate Mental Status/LOC: patient returned to baseline Follow-up care needed: N/A PILO PORTER M.D. Aug 13, 2017 12:43
[2017-08-13] MEDS: D5NS 1,000 ML IV SCH (13:05)
--- NOTE | 2017-08-13 13:15 | Diagnostic Imaging Report ---
Indications: hip pain Findings: Fluoroscopic views of the left hip were obtained. Intraoperative imaging showing dynamic hip screw reduction of the intertrochanteric fracture. IMPRESSION: Intraoperative imaging
--- NOTE | 2017-08-13 13:17 | Nephrology Progress Note ---
Assessment/Plan Problem List: (1) Dehydration (2) Seizure disorder (3) Closed left hip fracture Assessment Closed left hip fracture Dehydration Hypotension on presentation HTN Osteoporosis Sz disorder Plan had surgery 08/12/17 Hydrate- correct lytes monitor H&H adjust BP meds PO Vit D Per ortho Subjective ROS Limited/Unobtainable: No Constitutional: Reports: malaise, weakness Objective Objective Last 24 Hour Vital Signs Date Time Temp Pulse Resp B/P (MAP) Pulse Ox O2 Delivery O2 Flow Rate FiO2 08/13/17 12:43 80 18 08/13/17 12:00 97.1 80 18 101/52 99 Nasal Cannula 3.0 08/13/17 12:00 80 08/13/17 09:13 84 104/50 08/13/17 08:00 97.0 84 18 104/50 100 Nasal Cannula 3.0 08/13/17 08:00 93 08/13/17 04:00 97.4 84 15 98/44 98 Nasal Cannula 3.0 08/13/17 00:00 97.4 86 15 91/51 98 Nasal Cannula 3.0 08/12/17 23:00 85 08/12/17 22:05 97.8 84 15 94/44 99 Nasal Cannula 3.0 08/12/17 22:00 84 15 94/44 99 Nasal Cannula 3.0 08/12/17 21:45 91 17 88/53 98 Nasal Cannula 3.0 08/12/17 21:30 86 15 98/42 99 Nasal Cannula 3.0 08/12/17 21:15 89 21 91/47 99 Nasal Cannula 3.0 08/12/17 21:00 84 94/44 08/12/17 21:00 91 22 92/44 99 Nasal Cannula 3.0 08/12/17 20:45 93 20 89/40 99 Nasal Cannula 3.0 08/12/17 20:30 91 20 88/45 99 Nasal Cannula 3.0 08/12/17 20:15 91 20 95/38 99 Simple Mask 8.0 08/12/17 20:00 92 20 97/39 99 Simple Mask 8.0 08/12/17 19:45 89 20 88/40 99 Simple Mask 8.0 08/12/17 19:30 88 20 92/35 99 Simple Mask 8.0 08/12/17 19:14 86 20 109/45 99 Simple Mask 8.0 08/12/17 19:09 88 20 88/42 99 Simple Mask 8.0 08/12/17 19:08 88 16 100 08/12/17 19:04 97.1 83 20 72/45 99 Simple Mask 8.0 08/12/17 15:57 98.0 74 20 122/59 92 Intake and Output 08/12/17 08/13/17 19:00 07:00 Intake Total 2848.75 ml Output Total 400 ml Balance 2448.75 ml Intake Oral 50 ml IV Total 2798.75 ml Output Urine Total 350 ml Estimated Blood Loss 50 ml Laboratory Tests 08/12/17 14:30: C-Reactive Protein, Quantitative 13.7H 08/13/17 04:10: White Blood Count 13.5H, Red Blood Count 2.50L, Hemoglobin 9.0L, Hematocrit 26.2L, Mean Corpuscular Volume 105H, Mean Corpuscular Hemoglobin 35.9H, Mean Corpuscular Hemoglobin Concent 34.2, Red Cell Distribution Width 11.8, Platelet Count 86L, Mean Platelet Volume 6.6, Neutrophils (%) (Auto) , Lymphocytes (%) ( Auto) , Monocytes (%) (Auto) , Eosinophils (%) (Auto) , Basophils (%) (Auto) , Differential Total Cells Counted 100, Neutrophils % (Manual) 80H, Lymphocytes % (Manual) 10L, Monocytes % (Manual) 8, Eosinophils % (Manual) 0, Basophils % ( Manual) 1, Band Neutrophils 1, Platelet Estimate DecreasedL, Platelet Morphology Normal, Macrocytosis 1+, Sodium Level 138, Potassium Level 3.5, Chloride Level 108H, Carbon Dioxide Level 20L, Anion Gap 10, Blood Urea Nitrogen 13, Creatinine 0.6, Estimat Glomerular Filtration Rate , Glucose Level 145H, Hemoglobin A1c 5.7, Uric Acid 3.5, Calcium Level 7.2L, Phosphorus Level 2.6, Magnesium Level 1.4L, Iron Level 51, Total Iron Binding Capacity 177L, Percent Iron Saturation 29, Unsaturated Iron Binding 126, Ferritin 261, Total Bilirubin 0.4, Gamma Glutamyl Transpeptidase 104H, Aspartate Amino Transf (AST/ SGOT) 18, Alanine Aminotransferase (ALT/SGPT) 25, Alkaline Phosphatase 52, Total Creatine Kinase 153, Troponin I 0.124H, Pro-B-Type Natriuretic Peptide 1478H, Total Protein 5.6L, Albumin 2.0L, Globulin 3.6, Albumin/Globulin Ratio 0.6L, Triglycerides Level 50, Cholesterol Level 101, LDL Cholesterol 56, HDL Cholesterol 36L, Cholesterol/HDL Ratio 2.8L, Vitamin B12 Level 1369H, Folate 29.1, Thyroid Stimulating Hormone (TSH) 1.899, Phenytoin (Dilantin) Level 10.1, Valproic Acid (Depakene) Level 44L Height (Feet): 5 Height (Inches): 0.00 Weight (Pounds): 120 General Appearance: no apparent distress Neck: normal alignment Cardiovascular: normal rate Respiratory/Chest: decreased breath sounds Abdomen: soft GIANNA AYALA Aug 13, 2017 13:17
[2017-08-13] MEDS ORDERED: Vitamin D 50,000 units cap ORAL SCH (15:00)
--- NOTE | 2017-08-13 15:39 | Cardiology Report ---
APPROVED REPORT EKG Measurement Heart [id number] Normal sinus rhythm Normal ECG
[2017-08-13 16:00] VITALS: BP 98/50
[2017-08-13] MEDS: Docusate Sod/Senna tab ORAL SCH (17:40)
[2017-08-13] MEDS ORDERED: Milk of Magnesia 30ml Ud ORAL PRN (17:45)
[2017-08-13] MEDS ORDERED: Fleet's Enema 133ml RECTAL PRN (19:00)
[2017-08-13 20:00] VITALS: BP 80/40
--- NOTE | 2017-08-13 20:17 | Progress Note ---
DATE: 08/13/2017 SUBJECTIVE: The patient is doing well. Compliant with medication. The patient is still in pain and has anxiety. We discussed prison placement versus assisted living. The patient agreed and is unable to understand process and communicate the information given to her. The sister is next of kin. I do recommend a nursing facility or nursing rehabilitation. MENTAL STATUS EXAMINATION: The patient is alert and oriented times self, place, and situation. Mood is anxious. Affect is blunted. Congruent with mood and appropriate. Thought process is linear. Thought content, no suicidal or homicidal ideation. ASSESSMENT: Anxiety disorder. PLAN: 1. We will continue the current medication. 2. Provide the patient with supportive therapy and reality orientation. El Doss M.D. DR: JYOTI JOB#: [id number] CC:
[2017-08-13] MEDS: Iron Sucrose 100 MG in NS 55 ML IV SCH (20:42)
[2017-08-13] MEDS: Metoprolol 25mg tab ORAL SCH (20:43)
[2017-08-13] MEDS: Phenytoin 100mg cap ORAL SCH (20:43)
--- NOTE | 2017-08-13 23:49 | Cardiology Progress Note ---
Assessment/Plan Assessment/Plan 1. Left hip ORIF, continue hydration, correction of anemia, pain control and DVT prophylaxis. 2. Hypotension, leading to slight elevation of trop I level, IV bolus to be considered. 3. Significant drop of H/H as well platelet count. Subjective Subjective Sinus rhythm at 84. Trop I slightly elevated. Had an episode of hypotension postop. NS 1000 cc ordered. Objective Last 24 Hour Vital Signs Date Time Temp Pulse Resp B/P (MAP) Pulse Ox O2 Delivery O2 Flow Rate FiO2 08/13/17 21:00 84 08/13/17 20:43 78 98/50 08/13/17 20:00 97.3 83 18 80/40 99 Nasal Cannula 3.0 08/13/17 16:00 78 08/13/17 16:00 97.8 83 18 98/50 99 Nasal Cannula 3.0 08/13/17 12:43 80 18 08/13/17 12:00 97.1 80 18 101/52 99 Nasal Cannula 3.0 08/13/17 12:00 80 08/13/17 09:13 84 104/50 08/13/17 08:00 97.0 84 18 104/50 100 Nasal Cannula 3.0 08/13/17 08:00 93 08/13/17 04:00 97.4 84 15 98/44 98 Nasal Cannula 3.0 08/13/17 00:00 97.4 86 15 91/51 98 Nasal Cannula 3.0 Intake and Output 08/12/17 08/13/17 19:00 07:00 Intake Total 2923.75 ml Output Total 400 ml Balance 2523.75 ml Intake Oral 50 ml IV Total 2873.75 ml Output Urine Total 350 ml Estimated Blood Loss 50 ml Laboratory Tests Test 08/13/17 04:10 White Blood Count 13.5 K/UL (4.8-10.8) H Red Blood Count 2.50 M/UL (4.20-5.40) L Hemoglobin 9.0 G/DL (12.0-16.0) L Hematocrit 26.2 % (37.0-47.0) L Mean Corpuscular Volume 105 FL (80-99) H Mean Corpuscular Hemoglobin 35.9 PG (27.0-31.0) H Mean Corpuscular Hemoglobin Concent 34.2 G/DL (32.0-36.0) Red Cell Distribution Width 11.8 % (11.6-14.8) Platelet Count 86 K/UL (150-450) L Mean Platelet Volume 6.6 FL (6.5-10.1) Neutrophils (%) (Auto) % (45.0-75.0) Lymphocytes (%) (Auto) % (20.0-45.0) Monocytes (%) (Auto) % (1.0-10.0) Eosinophils (%) (Auto) % (0.0-3.0) Basophils (%) (Auto) % (0.0-2.0) Differential Total Cells Counted 100 Neutrophils % (Manual) 80 % (45-75) H Lymphocytes % (Manual) 10 % (20-45) L Monocytes % (Manual) 8 % (1-10) Eosinophils % (Manual) 0 % (0-3) Basophils % (Manual) 1 % (0-2) Band Neutrophils 1 % (0-8) Platelet Estimate Decreased L Platelet Morphology Normal Macrocytosis 1+ Sodium Level 138 MMOL/L (136-145) Potassium Level 3.5 MMOL/L (3.5-5.1) Chloride Level 108 MMOL/L (98-107) H Carbon Dioxide Level 20 MMOL/L (21-32) L Anion Gap 10 mmol/L (5-15) Blood Urea Nitrogen 13 mg/dL (7-18) Creatinine 0.6 MG/DL (0.55-1.30) Estimat Glomerular Filtration Rate mL/min (>60) Glucose Level 145 MG/DL (74-106) H Hemoglobin A1c 5.7 % (4.3-6.0) Uric Acid 3.5 MG/DL (2.6-7.2) Calcium Level 7.2 MG/DL (8.5-10.1) L Phosphorus Level 2.6 MG/DL (2.5-4.9) Magnesium Level 1.4 MG/DL (1.8-2.4) L Iron Level 51 ug/dL (50-175) Total Iron Binding Capacity 177 ug/dL (250-450) L Percent Iron Saturation 29 % (15-50) Unsaturated Iron Binding 126 ug/dL (112-346) Ferritin 261 NG/ML (8-388) Total Bilirubin 0.4 MG/DL (0.2-1.0) Gamma Glutamyl Transpeptidase 104 U/L (5-85) H Aspartate Amino Transf (AST/SGOT) 18 U/L (15-37) Alanine Aminotransferase (ALT/SGPT) 25 U/L (12-78) Alkaline Phosphatase 52 U/L (46-116) Total Creatine Kinase 153 U/L (26-308) Troponin I 0.124 ng/mL (0.000-0.056) Pro-B-Type Natriuretic Peptide 1478 pg/mL (0-125) H Total Protein 5.6 G/DL (6.4-8.2) L Albumin 2.0 G/DL (3.4-5.0) L Globulin 3.6 g/dL Albumin/Globulin Ratio 0.6 (1.0-2.7) L Triglycerides Level 50 MG/DL (30-150) Cholesterol Level 101 MG/DL (< 200) LDL Cholesterol 56 mg/dL (<100) HDL Cholesterol 36 MG/DL (40-60) L Cholesterol/HDL Ratio 2.8 (3.3-4.4) L Vitamin B12 Level 1369 PG/ML (193-986) H Folate 29.1 NG/ML (8.6-58.9) Thyroid Stimulating Hormone (TSH) 1.899 uiU/mL (0.358-3.740) Phenytoin (Dilantin) Level 10.1 ug/mL (10-20) Valproic Acid (Depakene) Level 44 MCG/ML (50-100) L Objective HEENT: Atraumatic, normocephalic. Anicteric. Pupils are equal, round, and reactive to light and accommodation. Extraocular muscles intact. NECK: JVP less than 5 cm. No carotid bruit. Carotid upstrokes 2+ bilaterally. CARDIOVASCULAR: Normal S1 and S2. Regular rate and rhythm. No murmurs, gallops, or rubs. PMI is at the fourth intercostal space at the midclavicular line. LUNGS: Clear to auscultation bilaterally. ABDOMEN: Soft, nontender, and nondistended. No hepatosplenomegaly. Positive bowel sounds. EXTREMITIES: No evidence of edema, clubbing, or cyanosis. EUFEMIA LACEY Aug 13, 2017 23:49
[2017-08-14] VITALS: BP 80/40
[2017-08-14] MEDS: D5NS 1,000 ML IV SCH ×2 (02:25→15:29)
[2017-08-14 04:00] VITALS: BP 94/45
[2017-08-14 06:54] LABS: BASOPHILS % (AUTO) 0.4 % (0.0-2.0); HEMATOCRIT 26.2 % (37.0-47.0); HEMOGLOBIN 9.1 G/DL (12.0-16.0); LYMPHOCYTES % (AUTO) 13.5 % (20.0-45.0); MEAN CORPUSCULAR VOLUME 104 FL (80-99); MONOCYTES % (AUTO) 10.1 % (1.0-10.0); PLATELET COUNT 168 K/UL (150-450); RED BLOOD COUNT 2.51 M/UL (4.20-5.40); WHITE BLOOD COUNT 15.2 K/UL (4.8-10.8)
[2017-08-14 07:04] LABS: ALANINE AMINOTRANSFERASE 23 U/L (12-78); ALBUMIN 2.3 G/DL (3.4-5.0); ALBUMIN/GLOBULIN RATIO 0.6 (1.0-2.7); ALKALINE PHOSPHATASE 69 U/L (46-116); ANION GAP 6 mmol/L (5-15); ASPARTATE AMINO TRANSFERASE 24 U/L (15-37); BILIRUBIN,TOTAL 0.4 MG/DL (0.2-1.0); BLOOD UREA NITROGEN 16 mg/dL (7-18); CALCIUM 7.6 MG/DL (8.5-10.1); CARBON DIOXIDE 23 MMOL/L (21-32); CHLORIDE 106 MMOL/L (98-107); CREATININE 0.6 MG/DL (0.55-1.30); PHOSPHORUS 2.6 MG/DL (2.5-4.9); POTASSIUM 4.5 MMOL/L (3.5-5.1); SODIUM 135 MMOL/L (136-145)
[2017-08-14 08:00] VITALS: BP 113/54
[2017-08-14] MEDS: Docusate Sod/Senna tab ORAL SCH ×2 (08:57→17:41)
[2017-08-14] MEDS: Docusate 100mg cap ORAL SCH ×3 (08:57→17:41)
[2017-08-14] MEDS: Depakote 500mg tab ORAL SCH ×2 (08:57→20:20)
[2017-08-14] MEDS: Flonase Nasal Inhaler 16gm NASAL SCH (08:57)
[2017-08-14] MEDS: Metoprolol 25mg tab ORAL SCH (08:58)
--- NOTE | 2017-08-14 11:12 | Infectious Diseases Prog Note ---
Assessment/Plan Assessment/Plan A Leukocytosis secondary to trauma & surgery Left hip fracture s/p ORIF Osteoporosis Anemia P: observe off antibiotic Subjective ROS Limited/Unobtainable: No Constitutional: Reports: no symptoms Respiratory: Reports: no symptoms Gastrointestinal/Abdominal: Reports: no symptoms Genitourinary: Reports: no symptoms Neurologic: Reports: other - hard of hearing Musculoskeletal: Reports: pain, other - left hip Allergies: Coded Allergies: AMOXICILLIN (Verified Allergy, Severe, HIVES, RASH, 11/14/13) ACETAMINOPHEN (Verified Allergy, Mild, HIVES, GI UPSET, 11/14/13) CODEINE (Unverified Allergy, Unknown, Rash, 02/26/14) NSAIDS (NON-STEROIDAL ANTI-INFLAMMA (Verified Allergy, Unknown, 02/24/14) Patient allergic to all NSAid's according to Dr. Jarrett. Objective Vital Signs Last 24 Hour Vital Signs Date Time Temp Pulse Resp B/P (MAP) Pulse Ox O2 Delivery O2 Flow Rate FiO2 08/14/17 08:58 84 113/54 08/14/17 08:00 98.2 84 18 113/54 97 Nasal Cannula 2.0 08/14/17 08:00 80 08/14/17 04:00 97.2 84 18 94/45 94 Nasal Cannula 3.0 08/14/17 00:00 97.3 83 18 80/40 99 Nasal Cannula 3.0 08/13/17 21:00 84 08/13/17 20:43 78 98/50 08/13/17 20:00 97.3 83 18 80/40 99 Nasal Cannula 3.0 08/13/17 16:00 78 08/13/17 16:00 97.8 83 18 98/50 99 Nasal Cannula 3.0 08/13/17 12:43 80 18 08/13/17 12:00 97.1 80 18 101/52 99 Nasal Cannula 3.0 08/13/17 12:00 80 Height (Feet): 5 Height (Inches): 0.00 Weight (Pounds): 120 General Appearance: no acute distress HEENT: mucous membranes moist Respiratory/Chest: lungs clear, other - Kyphosis Abdomen: soft, non tender Extremities: no edema Neurologic/Psychiatric: alert, oriented x 3, responsive Microbiology Date/Time Source Procedure Growth Status 08/11/17 16:35 Nasal Nares MRSA Culture - Final NO METHICILLIN RESISTANT STAPH AUREUS... Complete 08/11/17 16:35 Rectum VRE Culture - Final NO VANCOMYCIN RESISTANT ENTEROCOCCUS ... Complete Laboratory Tests Test 08/14/17 06:00 White Blood Count 15.2 K/UL (4.8-10.8) H Red Blood Count 2.51 M/UL (4.20-5.40) L Hemoglobin 9.1 G/DL (12.0-16.0) L Hematocrit 26.2 % (37.0-47.0) L Mean Corpuscular Volume 104 FL (80-99) H Mean Corpuscular Hemoglobin 36.2 PG (27.0-31.0) H Mean Corpuscular Hemoglobin Concent 34.7 G/DL (32.0-36.0) Red Cell Distribution Width 12.0 % (11.6-14.8) Platelet Count 168 K/UL (150-450) # Mean Platelet Volume 8.0 FL (6.5-10.1) Neutrophils (%) (Auto) 75.0 % (45.0-75.0) Lymphocytes (%) (Auto) 13.5 % (20.0-45.0) L Monocytes (%) (Auto) 10.1 % (1.0-10.0) H Eosinophils (%) (Auto) 1.0 % (0.0-3.0) Basophils (%) (Auto) 0.4 % (0.0-2.0) Sodium Level 135 MMOL/L (136-145) L Potassium Level 4.5 MMOL/L (3.5-5.1) Chloride Level 106 MMOL/L (98-107) Carbon Dioxide Level 23 MMOL/L (21-32) Anion Gap 6 mmol/L (5-15) Blood Urea Nitrogen 16 mg/dL (7-18) Creatinine 0.6 MG/DL (0.55-1.30) Estimat Glomerular Filtration Rate mL/min (>60) Glucose Level 114 MG/DL (74-106) H Uric Acid 4.0 MG/DL (2.6-7.2) Calcium Level 7.6 MG/DL (8.5-10.1) L Phosphorus Level 2.6 MG/DL (2.5-4.9) Magnesium Level 2.8 MG/DL (1.8-2.4) H Total Bilirubin 0.4 MG/DL (0.2-1.0) Aspartate Amino Transf (AST/SGOT) 24 U/L (15-37) Alanine Aminotransferase (ALT/SGPT) 23 U/L (12-78) Alkaline Phosphatase 69 U/L (46-116) C-Reactive Protein, Quantitative 14.4 mg/dL (0.00-0.90) H Pro-B-Type Natriuretic Peptide 2102 pg/mL (0-125) H Total Protein 5.9 G/DL (6.4-8.2) L Albumin 2.3 G/DL (3.4-5.0) L Globulin 3.6 g/dL Albumin/Globulin Ratio 0.6 (1.0-2.7) L Current Medications Medications (Trade) Dose Ordered Sig/Arthur Route PRN Reason Start Time Stop Time Status Last Admin Dose Admin Artificial Tears (Akwa-Tears) 1 drop DAILY PRN BOTH EYES Dry Eyes 08/13/17 09:00 09/10/17 18:44 Calcitonin Jackson (Miacalcin) 1 sprays DAILY NASAL 08/13/17 09:00 09/11/17 08:59 08/14/17 08:57 Dextrose/Sodium Chloride 1,000 ml @ 75 mls/hr [id number] IV 08/12/17 23:45 09/11/17 14:29 08/14/17 02:25 Divalproex Sodium (Depakote) 500 mg EVERY 12 HOURS ORAL 08/13/17 09:00 09/10/17 20:59 08/14/17 08:57 Docusate Sodium (Colace) 100 mg THREE TIMES A DAY ORAL 08/13/17 09:00 09/12/17 08:59 08/14/17 08:57 Ergocalciferol (Drisdol) 50,000 intlu We@1000 ORAL 08/13/17 15:00 09/12/17 14:59 08/13/17 15:26 Famotidine (Pepcid) 20 mg BID ORAL 08/13/17 09:00 09/11/17 08:59 08/14/17 08:57 Fluticasone Propionate (Flonase) 2 spray DAILY NASAL 08/13/17 09:00 09/11/17 08:59 08/14/17 08:57 Gabapentin (Neurontin) 400 mg Q8HR ORAL 08/13/17 06:00 09/10/17 21:59 08/14/17 05:20 Iron Sucrose 100 mg/Sodium Chloride 60 ml @ 240 mls/hr BEDTIME IV 08/13/17 21:00 08/17/17 21:14 08/13/17 20:42 Lorazepam (Ativan) 0.5 mg EVERY 12 HOURS PRN ORAL For Anxiety 08/13/17 09:00 08/18/17 18:29 Magnesium Hydroxide (Mom) 30 ml DAILYPRN PRN ORAL Constipation 08/13/17 17:45 09/11/17 17:44 Metoprolol Tartrate (Lopressor) 50 mg EVERY 12 HOURS ORAL 08/13/17 21:00 09/12/17 20:59 Morphine Sulfate (Morphine Sulfate) 1 mg Q3H PRN IVP Pain scale 1-3 08/12/17 23:45 08/19/17 17:44 Morphine Sulfate (Morphine Sulfate) 2 mg Q3H PRN IVP Moderate Pain (Pain Scale 4-6) 08/12/17 23:45 08/19/17 17:44 Phenytoin (Dilantin) 300 mg BEDTIME ORAL 08/13/17 21:00 09/10/17 20:59 08/13/17 20:43 Senna/Docusate Sodium (Iva-Colace) 1 tab TWICE A DAY ORAL 08/13/17 18:00 09/11/17 17:59 08/14/17 08:57 Sodium Phosphate (Fleet's Sodium Phosl Enema) 118 ml DAILYPRN PRN RECTAL Constipation 08/13/17 19:00 09/11/17 17:44 Temazepam (Restoril) 7.5 mg DAILY PRN ORAL Insomnia 08/13/17 09:00 08/19/17 17:44 Tramadol HCl (Ultram) 50 mg Q4H PRN ORAL For Pain 08/13/17 01:00 08/20/17 00:59 ROSALES DE LOS SANTOS Aug 14, 2017 11:12
[2017-08-14 12:00] VITALS: BP 100/58
[2017-08-14 16:00] VITALS: BP 101/56
--- NOTE | 2017-08-14 16:48 | Nephrology Progress Note ---
Assessment/Plan Problem List: (1) Dehydration (2) Seizure disorder (3) Closed left hip fracture Assessment Na lowering Closed left hip fracture Dehydration Hypotension on presentation HTN Osteoporosis Sz disorder HypoAlbuminemia Plan had surgery 08/12/17 DC IV fluid- Bollous Albumin correct lytes monitor H&H adjust BP meds PO Vit D Per ortho Subjective ROS Limited/Unobtainable: No Constitutional: Reports: malaise Objective Objective Last 24 Hour Vital Signs Date Time Temp Pulse Resp B/P (MAP) Pulse Ox O2 Delivery O2 Flow Rate FiO2 08/14/17 16:00 99.2 80 18 101/56 98 Nasal Cannula 2.0 08/14/17 16:00 91 08/14/17 12:00 98.2 85 18 100/58 94 Nasal Cannula 2.0 08/14/17 12:00 84 08/14/17 08:58 84 113/54 08/14/17 08:00 98.2 84 18 113/54 97 Nasal Cannula 2.0 08/14/17 08:00 80 08/14/17 04:00 97.2 84 18 94/45 94 Nasal Cannula 3.0 08/14/17 00:00 97.3 83 18 80/40 99 Nasal Cannula 3.0 08/13/17 21:00 84 08/13/17 20:43 78 98/50 08/13/17 20:00 97.3 83 18 80/40 99 Nasal Cannula 3.0 Intake and Output 08/13/17 08/14/17 19:00 07:00 Intake Total 1075 ml 897 ml Output Total 350 ml 300 ml Balance 725 ml 597 ml Intake Oral 700 ml IV Total 375 ml 897 ml Output Urine Total 350 ml 300 ml Stool Total 0 ml 0 ml Laboratory Tests 08/14/17 06:00: White Blood Count 15.2H, Red Blood Count 2.51L, Hemoglobin 9.1L, Hematocrit 26.2L, Mean Corpuscular Volume 104H, Mean Corpuscular Hemoglobin 36.2H, Mean Corpuscular Hemoglobin Concent 34.7, Red Cell Distribution Width 12.0, Platelet Count 168#, Mean Platelet Volume 8.0, Neutrophils (%) (Auto) 75.0, Lymphocytes ( %) (Auto) 13.5L, Monocytes (%) (Auto) 10.1H, Eosinophils (%) (Auto) 1.0, Basophils (%) (Auto) 0.4, Sodium Level 135L, Potassium Level 4.5, Chloride Level 106, Carbon Dioxide Level 23, Anion Gap 6, Blood Urea Nitrogen 16, Creatinine 0.6, Estimat Glomerular Filtration Rate , Glucose Level 114H, Uric Acid 4.0, Calcium Level 7.6L, Phosphorus Level 2.6, Magnesium Level 2.8H, Total Bilirubin 0.4, Aspartate Amino Transf (AST/SGOT) 24, Alanine Aminotransferase ( ALT/SGPT) 23, Alkaline Phosphatase 69, C-Reactive Protein, Quantitative 14.4H, Pro-B-Type Natriuretic Peptide 2102H, Total Protein 5.9L, Albumin 2.3L, Globulin 3.6, Albumin/Globulin Ratio 0.6L Height (Feet): 5 Height (Inches): 0.00 Weight (Pounds): 120 General Appearance: no apparent distress Respiratory/Chest: decreased breath sounds Abdomen: soft GIANNA AYALA Aug 14, 2017 16:48
[2017-08-14 20:00] VITALS: BP 100/47
[2017-08-14] MEDS: Phenytoin 100mg cap ORAL SCH (20:19)
[2017-08-14] MEDS: Iron Sucrose 100 MG in NS 55 ML IV SCH (20:24)
--- NOTE | 2017-08-14 23:14 | General Progress Note ---
Assessment/Plan Problem List: (1) Pain in limb ICD Codes: M79.609 - Pain in limb SNOMED: 98313756 (2) Seizure disorder ICD Codes: G40.909 - Seizure disorder SNOMED: 886101414 (3) Gait disturbance, post-stroke ICD Codes: I69.398 - Gait disturbance, post-stroke; R26.9 - Unspecified abnormalities of gait and mobility SNOMED: 359344734 (4) stroke, old (5) Closed left hip fracture ICD Codes: S72.002A - Fracture of unspecified part of neck of left femur, initial encounter for closed fracture SNOMED: 514242108 Qualifiers: Qualified Codes: S72.002A - Fracture of unspecified part of neck of left femur, initial encounter for closed fracture Status: progressing Assessment/Plan moniter afebrile reviewed chart and labs s/p left hip fracture orif Subjective ROS Limited/Unobtainable: Yes Allergies: Coded Allergies: AMOXICILLIN (Verified Allergy, Severe, HIVES, RASH, 11/14/13) ACETAMINOPHEN (Verified Allergy, Mild, HIVES, GI UPSET, 11/14/13) CODEINE (Unverified Allergy, Unknown, Rash, 02/26/14) NSAIDS (NON-STEROIDAL ANTI-INFLAMMA (Verified Allergy, Unknown, 02/24/14) Patient allergic to all NSAid's according to Dr. Jarrett. Objective Last 24 Hour Vital Signs Date Time Temp Pulse Resp B/P (MAP) Pulse Ox O2 Delivery O2 Flow Rate FiO2 08/14/17 20:00 101 08/14/17 20:00 98.0 65 18 100/47 92 Nasal Cannula 2.0 08/14/17 16:00 99.2 80 18 101/56 98 Nasal Cannula 2.0 08/14/17 16:00 91 08/14/17 12:00 98.2 85 18 100/58 94 Nasal Cannula 2.0 08/14/17 12:00 84 08/14/17 08:58 84 113/54 08/14/17 08:00 98.2 84 18 113/54 97 Nasal Cannula 2.0 08/14/17 08:00 80 08/14/17 04:00 97.2 84 18 94/45 94 Nasal Cannula 3.0 08/14/17 00:00 97.3 83 18 80/40 99 Nasal Cannula 3.0 Intake and Output 08/13/17 08/14/17 19:00 07:00 Intake Total 1075 ml 897 ml Output Total 350 ml 300 ml Balance 725 ml 597 ml Intake Oral 700 ml IV Total 375 ml 897 ml Output Urine Total 350 ml 300 ml Stool Total 0 ml 0 ml Laboratory Tests 08/14/17 06:00: White Blood Count 15.2H, Red Blood Count 2.51L, Hemoglobin 9.1L, Hematocrit 26.2L, Mean Corpuscular Volume 104H, Mean Corpuscular Hemoglobin 36.2H, Mean Corpuscular Hemoglobin Concent 34.7, Red Cell Distribution Width 12.0, Platelet Count 168#, Mean Platelet Volume 8.0, Neutrophils (%) (Auto) 75.0, Lymphocytes ( %) (Auto) 13.5L, Monocytes (%) (Auto) 10.1H, Eosinophils (%) (Auto) 1.0, Basophils (%) (Auto) 0.4, Sodium Level 135L, Potassium Level 4.5, Chloride Level 106, Carbon Dioxide Level 23, Anion Gap 6, Blood Urea Nitrogen 16, Creatinine 0.6, Estimat Glomerular Filtration Rate , Glucose Level 114H, Uric Acid 4.0, Calcium Level 7.6L, Phosphorus Level 2.6, Magnesium Level 2.8H, Total Bilirubin 0.4, Aspartate Amino Transf (AST/SGOT) 24, Alanine Aminotransferase ( ALT/SGPT) 23, Alkaline Phosphatase 69, C-Reactive Protein, Quantitative 15.6H, Pro-B-Type Natriuretic Peptide 2102H, Total Protein 5.9L, Albumin 2.3L, Globulin 3.6, Albumin/Globulin Ratio 0.6L Height (Feet): 5 Height (Inches): 0.00 Weight (Pounds): 120 Cardiovascular: regularly irregular Kvng Estrada MD Aug 14, 2017 23:14
--- NOTE | 2017-08-14 23:24 | Cardiology Progress Note ---
Assessment/Plan Assessment/Plan 1. Left hip ORIF, continue hydration, correction of anemia, pain control and DVT prophylaxis. 2. Hypotension, resolved, continue hydration. Subjective Subjective Sinus rhythm at 80.. Objective Last 24 Hour Vital Signs Date Time Temp Pulse Resp B/P (MAP) Pulse Ox O2 Delivery O2 Flow Rate FiO2 08/14/17 20:00 101 08/14/17 20:00 98.0 65 18 100/47 92 Nasal Cannula 2.0 08/14/17 16:00 99.2 80 18 101/56 98 Nasal Cannula 2.0 08/14/17 16:00 91 08/14/17 12:00 98.2 85 18 100/58 94 Nasal Cannula 2.0 08/14/17 12:00 84 08/14/17 08:58 84 113/54 08/14/17 08:00 98.2 84 18 113/54 97 Nasal Cannula 2.0 08/14/17 08:00 80 08/14/17 04:00 97.2 84 18 94/45 94 Nasal Cannula 3.0 08/14/17 00:00 97.3 83 18 80/40 99 Nasal Cannula 3.0 Intake and Output 08/13/17 08/14/17 19:00 07:00 Intake Total 1075 ml 897 ml Output Total 350 ml 300 ml Balance 725 ml 597 ml Intake Oral 700 ml IV Total 375 ml 897 ml Output Urine Total 350 ml 300 ml Stool Total 0 ml 0 ml Laboratory Tests Test 08/14/17 06:00 White Blood Count 15.2 K/UL (4.8-10.8) H Red Blood Count 2.51 M/UL (4.20-5.40) L Hemoglobin 9.1 G/DL (12.0-16.0) L Hematocrit 26.2 % (37.0-47.0) L Mean Corpuscular Volume 104 FL (80-99) H Mean Corpuscular Hemoglobin 36.2 PG (27.0-31.0) H Mean Corpuscular Hemoglobin Concent 34.7 G/DL (32.0-36.0) Red Cell Distribution Width 12.0 % (11.6-14.8) Platelet Count 168 K/UL (150-450) # Mean Platelet Volume 8.0 FL (6.5-10.1) Neutrophils (%) (Auto) 75.0 % (45.0-75.0) Lymphocytes (%) (Auto) 13.5 % (20.0-45.0) L Monocytes (%) (Auto) 10.1 % (1.0-10.0) H Eosinophils (%) (Auto) 1.0 % (0.0-3.0) Basophils (%) (Auto) 0.4 % (0.0-2.0) Sodium Level 135 MMOL/L (136-145) L Potassium Level 4.5 MMOL/L (3.5-5.1) Chloride Level 106 MMOL/L (98-107) Carbon Dioxide Level 23 MMOL/L (21-32) Anion Gap 6 mmol/L (5-15) Blood Urea Nitrogen 16 mg/dL (7-18) Creatinine 0.6 MG/DL (0.55-1.30) Estimat Glomerular Filtration Rate mL/min (>60) Glucose Level 114 MG/DL (74-106) H Uric Acid 4.0 MG/DL (2.6-7.2) Calcium Level 7.6 MG/DL (8.5-10.1) L Phosphorus Level 2.6 MG/DL (2.5-4.9) Magnesium Level 2.8 MG/DL (1.8-2.4) H Total Bilirubin 0.4 MG/DL (0.2-1.0) Aspartate Amino Transf (AST/SGOT) 24 U/L (15-37) Alanine Aminotransferase (ALT/SGPT) 23 U/L (12-78) Alkaline Phosphatase 69 U/L (46-116) C-Reactive Protein, Quantitative 15.6 mg/dL (0.00-0.90) H Pro-B-Type Natriuretic Peptide 2102 pg/mL (0-125) H Total Protein 5.9 G/DL (6.4-8.2) L Albumin 2.3 G/DL (3.4-5.0) L Globulin 3.6 g/dL Albumin/Globulin Ratio 0.6 (1.0-2.7) L Objective HEENT: Atraumatic, normocephalic. Anicteric. Pupils are equal, round, and reactive to light and accommodation. Extraocular muscles intact. NECK: JVP less than 5 cm. No carotid bruit. Carotid upstrokes 2+ bilaterally. CARDIOVASCULAR: Normal S1 and S2. Regular rate and rhythm. No murmurs, gallops, or rubs. PMI is at the fourth intercostal space at the midclavicular line. LUNGS: Clear to auscultation bilaterally. ABDOMEN: Soft, nontender, and nondistended. No hepatosplenomegaly. Positive bowel sounds. EXTREMITIES: No evidence of edema, clubbing, or cyanosis. EUFEMIA LACEY Aug 14, 2017 23:24
[2017-08-15] VITALS: BP 103/57
[2017-08-15 06:02] LABS: BASOPHILS % (AUTO) 0.5 % (0.0-2.0); EOSINOPHILS % (AUTO) 1.9 % (0.0-3.0); HEMATOCRIT 24.4 % (37.0-47.0); HEMOGLOBIN 8.4 G/DL (12.0-16.0); LYMPHOCYTES % (AUTO) 20.9 % (20.0-45.0); MEAN CORPUSCULAR VOLUME 105 FL (80-99); MONOCYTES % (AUTO) 11.1 % (1.0-10.0); NEUTROPHILS % (AUTO) 65.6 % (45.0-75.0); PLATELET COUNT 189 K/UL (150-450); RED BLOOD COUNT 2.32 M/UL (4.20-5.40); RED CELL DISTRIBUTION WIDTH 12.1 % (11.6-14.8); WHITE BLOOD COUNT 13.8 K/UL (4.8-10.8)
[2017-08-15 06:44] LABS: ALANINE AMINOTRANSFERASE 36 U/L (12-78); ALBUMIN 2.5 G/DL (3.4-5.0); ALBUMIN/GLOBULIN RATIO 0.7 (1.0-2.7); ALKALINE PHOSPHATASE 99 U/L (46-116); ANION GAP 9 mmol/L (5-15); ASPARTATE AMINO TRANSFERASE 48 U/L (15-37); BILIRUBIN,TOTAL 0.5 MG/DL (0.2-1.0); BLOOD UREA NITROGEN 14 mg/dL (7-18); CALCIUM 7.6 MG/DL (8.5-10.1); CARBON DIOXIDE 22 MMOL/L (21-32); CHLORIDE 108 MMOL/L (98-107); CREATININE 0.6 MG/DL (0.55-1.30); PHOSPHORUS 2.1 MG/DL (2.5-4.9); POTASSIUM 4.4 MMOL/L (3.5-5.1); SODIUM 139 MMOL/L (136-145)
[2017-08-15 08:00] VITALS: BP 130/72
[2017-08-15] MEDS: Depakote 500mg tab ORAL SCH ×2 (08:47→21:28)
[2017-08-15] MEDS: Flonase Nasal Inhaler 16gm NASAL SCH (08:47)
[2017-08-15] MEDS: Docusate 100mg cap ORAL SCH ×3 (08:47→17:00)
[2017-08-15] MEDS: Docusate Sod/Senna tab ORAL SCH (08:47)
[2017-08-15] MEDS ORDERED: Phospha 250 Neutral tab ORAL SCH ×3 (09:00→13:00)
[2017-08-15] MEDS ORDERED: Metoprolol 25mg tab ORAL SCH ×3 (09:00→21:00)
[2017-08-15] MEDS ORDERED: Tubing IV Secondary IV ONE ×3 (11:01→19:45)
[2017-08-15] MEDS ORDERED: D5NS 1000ml IV ONE (11:01)
--- NOTE | 2017-08-15 11:26 | General Progress Note ---
Assessment/Plan Status: stable, progressing Assessment/Plan encephalopathy agitation Subjective Date patient seen: Aug 14, 2017 Neurologic/Psychiatric: Reports: anxiety, depressed, emotional problems Allergies: Coded Allergies: AMOXICILLIN (Verified Allergy, Severe, HIVES, RASH, 11/14/13) ACETAMINOPHEN (Verified Allergy, Mild, HIVES, GI UPSET, 11/14/13) CODEINE (Unverified Allergy, Unknown, Rash, 02/26/14) NSAIDS (NON-STEROIDAL ANTI-INFLAMMA (Verified Allergy, Unknown, 02/24/14) Patient allergic to all NSAid's according to Dr. Jarrett. Subjective aax2 Objective Last 24 Hour Vital Signs Date Time Temp Pulse Resp B/P (MAP) Pulse Ox O2 Delivery O2 Flow Rate FiO2 08/15/17 08:47 90 130/72 08/15/17 08:00 89 08/15/17 08:00 98.1 90 18 130/72 95 Nasal Cannula 2.0 08/15/17 04:00 80 20 Nasal Cannula 2.0 08/15/17 04:00 94 08/15/17 00:00 98.4 82 18 103/57 93 Nasal Cannula 2.0 08/15/17 00:00 99 08/14/17 20:00 101 08/14/17 20:00 98.0 65 18 100/47 92 Nasal Cannula 2.0 08/14/17 16:00 99.2 80 18 101/56 98 Nasal Cannula 2.0 08/14/17 16:00 91 08/14/17 12:00 98.2 85 18 100/58 94 Nasal Cannula 2.0 08/14/17 12:00 84 Intake and Output 08/14/17 08/15/17 19:00 07:00 Intake Total 1687.50 ml 150 ml Output Total 200 ml 350 ml Balance 1487.50 ml -200 ml Intake Oral 720 ml 150 ml IV Total 967.50 ml Output Urine Total 200 ml 350 ml Stool Total 0 ml Laboratory Tests 08/15/17 03:55: White Blood Count 13.8H, Red Blood Count 2.32L, Hemoglobin 8.4L, Hematocrit 24.4L, Mean Corpuscular Volume 105H, Mean Corpuscular Hemoglobin 36.2H, Mean Corpuscular Hemoglobin Concent 34.4, Red Cell Distribution Width 12.1, Platelet Count 189, Mean Platelet Volume 8.0, Neutrophils (%) (Auto) 65.6, Lymphocytes (% ) (Auto) 20.9, Monocytes (%) (Auto) 11.1H, Eosinophils (%) (Auto) 1.9, Basophils (%) (Auto) 0.5, Sodium Level 139, Potassium Level 4.4, Chloride Level 108H, Carbon Dioxide Level 22, Anion Gap 9, Blood Urea Nitrogen 14, Creatinine 0.6, Estimat Glomerular Filtration Rate , Glucose Level 101, Uric Acid 3.7, Calcium Level 7.6L, Phosphorus Level 2.1L, Magnesium Level 2.5H, Total Bilirubin 0.5, Aspartate Amino Transf (AST/SGOT) 48H, Alanine Aminotransferase ( ALT/SGPT) 36, Alkaline Phosphatase 99, Pro-B-Type Natriuretic Peptide 3348H, Total Protein 5.9L, Albumin 2.5L, Globulin 3.4, Albumin/Globulin Ratio 0.7L, Cortisol AM Sample [Pending] Height (Feet): 5 Height (Inches): 0.00 Weight (Pounds): 120 General Appearance: no apparent distress, alert, confused El Doss M.D. Aug 15, 2017 11:26
[2017-08-15] MEDS ORDERED: Morphine Sulfate 2mg/ml Inj IVP PRN ×8 (11:45→12:00)
[2017-08-15] MEDS: Phospha 250 Neutral tab ORAL SCH ×2 (11:57→17:07)
[2017-08-15] MEDS ORDERED: Milk of Magnesia 30ml Ud ORAL PRN ×3 (12:00→17:45)
[2017-08-15] MEDS ORDERED: Artificial Tears 1.4% Op Soln BOTH EYES PRN (12:00)
[2017-08-15 13:00] VITALS: BP 106/60
[2017-08-15] MEDS ORDERED: Docusate 100mg cap ORAL SCH ×2 (13:00)
[2017-08-15] MEDS ORDERED: traMADol 50mg tab ORAL PRN ×3 (13:00)
--- NOTE | 2017-08-15 14:50 | Infectious Diseases Prog Note ---
Assessment/Plan Assessment/Plan A Leukocytosis secondary to trauma & surgery Left hip fracture s/p ORIF Osteoporosis Anemia P: observe off antibiotic Subjective ROS Limited/Unobtainable: No Respiratory: Reports: no symptoms Cardiovascular: Reports: no symptoms Gastrointestinal/Abdominal: Reports: no symptoms Genitourinary: Reports: no symptoms Allergies: Coded Allergies: AMOXICILLIN (Verified Allergy, Severe, HIVES, RASH, 11/14/13) ACETAMINOPHEN (Verified Allergy, Mild, HIVES, GI UPSET, 11/14/13) CODEINE (Unverified Allergy, Unknown, Rash, 02/26/14) NSAIDS (NON-STEROIDAL ANTI-INFLAMMA (Verified Allergy, Unknown, 02/24/14) Patient allergic to all NSAid's according to Dr. Jarrett. Objective Vital Signs Last 24 Hour Vital Signs Date Time Temp Pulse Resp B/P (MAP) Pulse Ox O2 Delivery O2 Flow Rate FiO2 08/15/17 13:00 98.1 93 18 106/60 95 Room Air 08/15/17 11:53 97 08/15/17 08:47 90 130/72 08/15/17 08:00 89 08/15/17 08:00 98.1 90 18 130/72 95 Nasal Cannula 2.0 08/15/17 04:00 80 20 Nasal Cannula 2.0 08/15/17 04:00 94 08/15/17 00:00 98.4 82 18 103/57 93 Nasal Cannula 2.0 08/15/17 00:00 99 08/14/17 20:00 101 08/14/17 20:00 98.0 65 18 100/47 92 Nasal Cannula 2.0 08/14/17 16:00 99.2 80 18 101/56 98 Nasal Cannula 2.0 08/14/17 16:00 91 Height (Feet): 5 Height (Inches): 0.00 Weight (Pounds): 120 General Appearance: no acute distress HEENT: mucous membranes moist Respiratory/Chest: lungs clear Cardiovascular: normal rate Abdomen: soft, non tender Extremities: no edema Neurologic/Psychiatric: alert, responsive Laboratory Tests Test 08/15/17 03:55 White Blood Count 13.8 K/UL (4.8-10.8) H Red Blood Count 2.32 M/UL (4.20-5.40) L Hemoglobin 8.4 G/DL (12.0-16.0) L Hematocrit 24.4 % (37.0-47.0) L Mean Corpuscular Volume 105 FL (80-99) H Mean Corpuscular Hemoglobin 36.2 PG (27.0-31.0) H Mean Corpuscular Hemoglobin Concent 34.4 G/DL (32.0-36.0) Red Cell Distribution Width 12.1 % (11.6-14.8) Platelet Count 189 K/UL (150-450) Mean Platelet Volume 8.0 FL (6.5-10.1) Neutrophils (%) (Auto) 65.6 % (45.0-75.0) Lymphocytes (%) (Auto) 20.9 % (20.0-45.0) Monocytes (%) (Auto) 11.1 % (1.0-10.0) H Eosinophils (%) (Auto) 1.9 % (0.0-3.0) Basophils (%) (Auto) 0.5 % (0.0-2.0) Sodium Level 139 MMOL/L (136-145) Potassium Level 4.4 MMOL/L (3.5-5.1) Chloride Level 108 MMOL/L (98-107) H Carbon Dioxide Level 22 MMOL/L (21-32) Anion Gap 9 mmol/L (5-15) Blood Urea Nitrogen 14 mg/dL (7-18) Creatinine 0.6 MG/DL (0.55-1.30) Estimat Glomerular Filtration Rate mL/min (>60) Glucose Level 101 MG/DL (74-106) Uric Acid 3.7 MG/DL (2.6-7.2) Calcium Level 7.6 MG/DL (8.5-10.1) L Phosphorus Level 2.1 MG/DL (2.5-4.9) L Magnesium Level 2.5 MG/DL (1.8-2.4) H Total Bilirubin 0.5 MG/DL (0.2-1.0) Aspartate Amino Transf (AST/SGOT) 48 U/L (15-37) H Alanine Aminotransferase (ALT/SGPT) 36 U/L (12-78) Alkaline Phosphatase 99 U/L (46-116) Pro-B-Type Natriuretic Peptide 3348 pg/mL (0-125) H Total Protein 5.9 G/DL (6.4-8.2) L Albumin 2.5 G/DL (3.4-5.0) L Globulin 3.4 g/dL Albumin/Globulin Ratio 0.7 (1.0-2.7) L Cortisol AM Sample Pending Current Medications Medications (Trade) Dose Ordered Sig/Arthur Route PRN Reason Start Time Stop Time Status Last Admin Dose Admin Artificial Tears (Akwa-Tears) 1 drop DAILYPRN PRN BOTH EYES Dry Eyes 08/15/17 12:00 09/14/17 11:59 Divalproex Sodium (Depakote) 500 mg EVERY 12 HOURS ORAL 08/15/17 21:00 09/10/17 20:59 Docusate Sodium (Colace) 100 mg THREE TIMES A DAY ORAL 08/15/17 13:00 09/12/17 08:59 08/15/17 11:57 Ergocalciferol (Drisdol) 50,000 intlu We@1000 ORAL 08/20/17 10:00 09/12/17 14:59 Famotidine (Pepcid) 20 mg BID ORAL 08/15/17 18:00 09/11/17 08:59 Fluticasone Propionate (Flonase) 2 spray DAILY NASAL 08/16/17 09:00 09/11/17 08:59 Gabapentin (Neurontin) 400 mg Q8HR ORAL 08/15/17 14:00 09/10/17 21:59 Iron Sucrose 100 mg/Sodium Chloride 60 ml @ 240 mls/hr BEDTIME IV 08/15/17 21:00 08/17/17 21:14 Lorazepam (Ativan) 0.5 mg Q12H PRN ORAL For Anxiety 08/15/17 12:00 08/22/17 11:59 Magnesium Hydroxide (Mom) 30 ml DAILYPRN PRN ORAL Constipation 08/15/17 12:00 09/11/17 11:59 08/15/17 11:57 Metoprolol Tartrate (Lopressor) 25 mg EVERY 12 HOURS ORAL 08/15/17 21:00 09/14/17 08:59 Morphine Sulfate (Morphine Sulfate) 1 mg Q3H PRN IVP Moderate Pain (Pain Scale 4-6) 08/15/17 12:00 08/19/17 17:44 Morphine Sulfate (Morphine Sulfate) 2 mg Q3H PRN IVP Severe Pain (Pain Scale 7-10) 08/15/17 12:00 08/19/17 11:59 Phenytoin (Dilantin) 300 mg BEDTIME ORAL 08/15/17 21:00 09/10/17 20:59 Phosphorus (Phospha 250 Neutral) 250 mg THREE TIMES A DAY ORAL 08/15/17 13:00 09/14/17 08:59 08/15/17 11:57 Senna/Docusate Sodium (Iva-Colace) 1 tab TWICE A DAY ORAL 08/15/17 18:00 09/11/17 17:59 Sodium Phosphate (Fleet's Sodium Phosl Enema) 133 ml DAILYPRN PRN RECTAL Constipation 08/15/17 19:00 09/11/17 17:44 Temazepam (Restoril) 7.5 mg HSPRN PRN ORAL Insomnia 08/16/17 21:00 08/23/17 20:59 Tramadol HCl (Ultram) 50 mg Q4H PRN ORAL Mild Pain (Pain Scale 1-3) 08/15/17 13:00 08/20/17 00:59 ROSALES DE LOS SANTOS Aug 15, 2017 14:50
--- NOTE | 2017-08-15 15:36 | Nephrology Progress Note ---
Assessment/Plan Problem List: (1) Dehydration (2) Seizure disorder (3) Closed left hip fracture Assessment Na lowering Closed left hip fracture Dehydration Hypotension on presentation HTN Osteoporosis Sz disorder HypoAlbuminemia Plan had surgery 08/12/17 DC IV fluid- Bollous Albumin correct lytes monitor H&H adjust BP meds PO Vit D Per ortho Subjective ROS Limited/Unobtainable: No Constitutional: Reports: malaise, weakness Objective Objective Last 24 Hour Vital Signs Date Time Temp Pulse Resp B/P (MAP) Pulse Ox O2 Delivery O2 Flow Rate FiO2 08/15/17 13:00 98.1 93 18 106/60 95 Room Air 08/15/17 11:53 97 08/15/17 08:47 90 130/72 08/15/17 08:00 89 08/15/17 08:00 98.1 90 18 130/72 95 Nasal Cannula 2.0 08/15/17 04:00 80 20 Nasal Cannula 2.0 08/15/17 04:00 94 08/15/17 00:00 98.4 82 18 103/57 93 Nasal Cannula 2.0 08/15/17 00:00 99 08/14/17 20:00 101 08/14/17 20:00 98.0 65 18 100/47 92 Nasal Cannula 2.0 08/14/17 16:00 99.2 80 18 101/56 98 Nasal Cannula 2.0 08/14/17 16:00 91 Intake and Output 08/14/17 08/15/17 19:00 07:00 Intake Total 1687.50 ml 150 ml Output Total 200 ml 350 ml Balance 1487.50 ml -200 ml Intake Oral 720 ml 150 ml IV Total 967.50 ml Output Urine Total 200 ml 350 ml Stool Total 0 ml Laboratory Tests 08/15/17 03:55: White Blood Count 13.8H, Red Blood Count 2.32L, Hemoglobin 8.4L, Hematocrit 24.4L, Mean Corpuscular Volume 105H, Mean Corpuscular Hemoglobin 36.2H, Mean Corpuscular Hemoglobin Concent 34.4, Red Cell Distribution Width 12.1, Platelet Count 189, Mean Platelet Volume 8.0, Neutrophils (%) (Auto) 65.6, Lymphocytes (% ) (Auto) 20.9, Monocytes (%) (Auto) 11.1H, Eosinophils (%) (Auto) 1.9, Basophils (%) (Auto) 0.5, Sodium Level 139, Potassium Level 4.4, Chloride Level 108H, Carbon Dioxide Level 22, Anion Gap 9, Blood Urea Nitrogen 14, Creatinine 0.6, Estimat Glomerular Filtration Rate , Glucose Level 101, Uric Acid 3.7, Calcium Level 7.6L, Phosphorus Level 2.1L, Magnesium Level 2.5H, Total Bilirubin 0.5, Aspartate Amino Transf (AST/SGOT) 48H, Alanine Aminotransferase ( ALT/SGPT) 36, Alkaline Phosphatase 99, Pro-B-Type Natriuretic Peptide 3348H, Total Protein 5.9L, Albumin 2.5L, Globulin 3.4, Albumin/Globulin Ratio 0.7L, Cortisol AM Sample [Pending] Height (Feet): 5 Height (Inches): 0.00 Weight (Pounds): 120 General Appearance: no apparent distress, lethargic Cardiovascular: regular rhythm Respiratory/Chest: decreased breath sounds Abdomen: soft GIANNA AYALA Aug 15, 2017 15:36
[2017-08-15 15:46] VITALS: BP 113/50
[2017-08-15] MEDS ORDERED: Heparin 2000 units/Ns 1000ml INJ PRN (18:00)
[2017-08-15] MEDS ORDERED: Docusate Sod/Senna tab ORAL SCH ×3 (18:00)
[2017-08-15] MEDS ORDERED: Lidocaine 1% Plain 30 ml INJ PRN (18:00)
[2017-08-15] MEDS ORDERED: Fleet's Enema 133ml RECTAL PRN ×3 (19:00)
[2017-08-15] MEDS: Dyna-Hex 2% Top Sol 2oz TOPIC SCH (19:32)
[2017-08-15 20:00] VITALS: BP 142/85
--- NOTE | 2017-08-15 20:30 | Progress Note ---
DATE: 08/15/2017 SUBJECTIVE: The patient no acute distress, more altered since the day of admission. The patient is more confused and has episodes of agitation. The patient was less lucid. MENTAL STATUS EXAMINATION: The patient is alert and oriented times self. Mood is anxious. Affect is constricted, congruent with mood. Thought process is concrete. Thought content is delusional. No suicidal or homicidal ideations. ASSESSMENT: Encephalopathy. PLAN: 1. We will continue current medications. 2. Provide the patient with supportive therapy and reality orientation. 3. Decrease the Depakote to 500 mg at bedtime. 4. The patient may benefit from low-dose of antipsychotics. El Doss M.D. DR: KHADIJAH JOB#: [id number] CC:
[2017-08-15 20:36] LABS: MEAN CORPUSCULAR VOLUME 101 FL (80-99); PLATELET COUNT 263 K/UL (150-450); RED BLOOD COUNT 3.57 M/UL (4.20-5.40); RED CELL DISTRIBUTION WIDTH 15.1 % (11.6-14.8); WHITE BLOOD COUNT 18.9 K/UL (4.8-10.8)
[2017-08-15 20:38] LABS: BASOPHILS % (AUTO) 0.5 % (0.0-2.0); EOSINOPHILS % (AUTO) 0.5 % (0.0-3.0); MONOCYTES % (AUTO) 11.2 % (1.0-10.0); NEUTROPHILS % (AUTO) 73.8 % (45.0-75.0)
--- NOTE | 2017-08-15 20:58 | General Progress Note ---
Assessment/Plan Problem List: (1) Pain in limb ICD Codes: M79.609 - Pain in limb SNOMED: 77492025 (2) Seizure disorder ICD Codes: G40.909 - Seizure disorder SNOMED: 584401793 (3) Gait disturbance, post-stroke ICD Codes: I69.398 - Gait disturbance, post-stroke; R26.9 - Unspecified abnormalities of gait and mobility SNOMED: 776940672 (4) stroke, old (5) Closed left hip fracture ICD Codes: S72.002A - Fracture of unspecified part of neck of left femur, initial encounter for closed fracture SNOMED: 344655580 Qualifiers: Qualified Codes: S72.002A - Fracture of unspecified part of neck of left femur, initial encounter for closed fracture Status: progressing Assessment/Plan anemia heme/onc ordered transfusion dc once cleared by heme/onc s/p left hip fracture orif Subjective ROS Limited/Unobtainable: Yes Allergies: Coded Allergies: AMOXICILLIN (Verified Allergy, Severe, HIVES, RASH, 11/14/13) ACETAMINOPHEN (Verified Allergy, Mild, HIVES, GI UPSET, 11/14/13) CODEINE (Unverified Allergy, Unknown, Rash, 02/26/14) NSAIDS (NON-STEROIDAL ANTI-INFLAMMA (Verified Allergy, Unknown, 02/24/14) Patient allergic to all NSAid's according to Dr. Jarrett. Objective Last 24 Hour Vital Signs Date Time Temp Pulse Resp B/P (MAP) Pulse Ox O2 Delivery O2 Flow Rate FiO2 08/15/17 19:17 98.2 08/15/17 16:08 116 08/15/17 15:46 98.2 103 18 113/50 95 Room Air 08/15/17 13:00 98.1 93 18 106/60 95 Room Air 08/15/17 11:53 97 08/15/17 08:47 90 130/72 08/15/17 08:00 89 08/15/17 08:00 98.1 90 18 130/72 95 Nasal Cannula 2.0 08/15/17 04:00 80 20 Nasal Cannula 2.0 08/15/17 04:00 94 08/15/17 00:00 98.4 82 18 103/57 93 Nasal Cannula 2.0 08/15/17 00:00 99 Intake and Output 08/14/17 08/15/17 19:00 07:00 Intake Total 1687.50 ml 150 ml Output Total 200 ml 350 ml Balance 1487.50 ml -200 ml Intake Oral 720 ml 150 ml IV Total 967.50 ml Output Urine Total 200 ml 350 ml Stool Total 0 ml Laboratory Tests 08/15/17 03:55: White Blood Count 13.8H, Red Blood Count 2.32L, Hemoglobin 8.4L, Hematocrit 24.4L, Mean Corpuscular Volume 105H, Mean Corpuscular Hemoglobin 36.2H, Mean Corpuscular Hemoglobin Concent 34.4, Red Cell Distribution Width 12.1, Platelet Count 189, Mean Platelet Volume 8.0, Neutrophils (%) (Auto) 65.6, Lymphocytes (% ) (Auto) 20.9, Monocytes (%) (Auto) 11.1H, Eosinophils (%) (Auto) 1.9, Basophils (%) (Auto) 0.5, Sodium Level 139, Potassium Level 4.4, Chloride Level 108H, Carbon Dioxide Level 22, Anion Gap 9, Blood Urea Nitrogen 14, Creatinine 0.6, Estimat Glomerular Filtration Rate , Glucose Level 101, Uric Acid 3.7, Calcium Level 7.6L, Phosphorus Level 2.1L, Magnesium Level 2.5H, Total Bilirubin 0.5, Aspartate Amino Transf (AST/SGOT) 48H, Alanine Aminotransferase ( ALT/SGPT) 36, Alkaline Phosphatase 99, Pro-B-Type Natriuretic Peptide 3348H, Total Protein 5.9L, Albumin 2.5L, Globulin 3.4, Albumin/Globulin Ratio 0.7L, Cortisol AM Sample [Pending] 08/15/17 20:20: White Blood Count 18.9H, Red Blood Count 3.57L, Hemoglobin 12.0#, Hematocrit 36.0#L, Mean Corpuscular Volume 101H, Mean Corpuscular Hemoglobin 33.6H, Mean Corpuscular Hemoglobin Concent 33.2, Red Cell Distribution Width 15.1H, Platelet Count 263, Mean Platelet Volume 7.2, Neutrophils (%) (Auto) 73.8, Lymphocytes (%) (Auto) 14.0L, Monocytes (%) (Auto) 11.2H, Eosinophils (%) (Auto ) 0.5, Basophils (%) (Auto) 0.5 Height (Feet): 5 Height (Inches): 0.00 Weight (Pounds): 120 Neck: non-tender Cardiovascular: normal rate Respiratory/Chest: lungs clear Abdomen: soft Kvng Estrada MD Aug 15, 2017 20:58
[2017-08-15] MEDS ORDERED: Iron Sucrose 100 MG in NS 55 ML IV SCH (21:00)
[2017-08-15] MEDS ORDERED: LORazepam 0.5mg tab ORAL PRN ×2 (21:00)
[2017-08-15] MEDS ORDERED: Depakote 500mg tab ORAL SCH ×3 (21:00)
[2017-08-15] MEDS ORDERED: Phenytoin 100mg cap ORAL SCH ×2 (21:00)
[2017-08-15] MEDS: Phenytoin 100mg cap ORAL SCH (21:28)
[2017-08-15] MEDS: Metoprolol 25mg tab ORAL SCH (21:29)
[2017-08-15] MEDS: Iron Sucrose 100 MG in NS 55 ML IV SCH (23:00)
--- NOTE | 2017-08-15 23:37 | Cardiology Progress Note ---
Assessment/Plan Assessment/Plan 1. Left hip ORIF, continue hydration, correction of anemia, pain control and DVT prophylaxis. 2. Hypotension, resolved, continue hydration. 3. Sinus tachycardia, ?etiology, 12 lead ECG. Subjective Subjective Sinus tachycardia at 116. Objective Last 24 Hour Vital Signs Date Time Temp Pulse Resp B/P (MAP) Pulse Ox O2 Delivery O2 Flow Rate FiO2 08/15/17 21:29 123 142/85 08/15/17 21:00 95 Venturi Mask 15.0 08/15/17 20:00 98.6 123 24 142/85 89 08/15/17 20:00 Room Air 08/15/17 19:17 98.2 08/15/17 16:08 116 08/15/17 15:46 98.2 103 18 113/50 95 Room Air 08/15/17 13:00 98.1 93 18 106/60 95 Room Air 08/15/17 11:53 97 08/15/17 08:47 90 130/72 08/15/17 08:00 89 08/15/17 08:00 98.1 90 18 130/72 95 Nasal Cannula 2.0 08/15/17 04:00 80 20 Nasal Cannula 2.0 08/15/17 04:00 94 08/15/17 00:00 98.4 82 18 103/57 93 Nasal Cannula 2.0 08/15/17 00:00 99 Intake and Output 08/14/17 08/15/17 19:00 07:00 Intake Total 1687.50 ml 150 ml Output Total 200 ml 350 ml Balance 1487.50 ml -200 ml Intake Oral 720 ml 150 ml IV Total 967.50 ml Output Urine Total 200 ml 350 ml Stool Total 0 ml Laboratory Tests Test 08/15/17 03:55 08/15/17 20:20 White Blood Count 13.8 K/UL (4.8-10.8) H 18.9 K/UL (4.8-10.8) H Red Blood Count 2.32 M/UL (4.20-5.40) L 3.57 M/UL (4.20-5.40) L Hemoglobin 8.4 G/DL (12.0-16.0) L 12.0 G/DL (12.0-16.0) # Hematocrit 24.4 % (37.0-47.0) L 36.0 % (37.0-47.0) #L Mean Corpuscular Volume 105 FL (80-99) H 101 FL (80-99) H Mean Corpuscular Hemoglobin 36.2 PG (27.0-31.0) H 33.6 PG (27.0-31.0) H Mean Corpuscular Hemoglobin Concent 34.4 G/DL (32.0-36.0) 33.2 G/DL (32.0-36.0) Red Cell Distribution Width 12.1 % (11.6-14.8) 15.1 % (11.6-14.8) H Platelet Count 189 K/UL (150-450) 263 K/UL (150-450) Mean Platelet Volume 8.0 FL (6.5-10.1) 7.2 FL (6.5-10.1) Neutrophils (%) (Auto) 65.6 % (45.0-75.0) 73.8 % (45.0-75.0) Lymphocytes (%) (Auto) 20.9 % (20.0-45.0) 14.0 % (20.0-45.0) L Monocytes (%) (Auto) 11.1 % (1.0-10.0) H 11.2 % (1.0-10.0) H Eosinophils (%) (Auto) 1.9 % (0.0-3.0) 0.5 % (0.0-3.0) Basophils (%) (Auto) 0.5 % (0.0-2.0) 0.5 % (0.0-2.0) Sodium Level 139 MMOL/L (136-145) Potassium Level 4.4 MMOL/L (3.5-5.1) Chloride Level 108 MMOL/L (98-107) H Carbon Dioxide Level 22 MMOL/L (21-32) Anion Gap 9 mmol/L (5-15) Blood Urea Nitrogen 14 mg/dL (7-18) Creatinine 0.6 MG/DL (0.55-1.30) Estimat Glomerular Filtration Rate mL/min (>60) Glucose Level 101 MG/DL (74-106) Uric Acid 3.7 MG/DL (2.6-7.2) Calcium Level 7.6 MG/DL (8.5-10.1) L Phosphorus Level 2.1 MG/DL (2.5-4.9) L Magnesium Level 2.5 MG/DL (1.8-2.4) H Total Bilirubin 0.5 MG/DL (0.2-1.0) Aspartate Amino Transf (AST/SGOT) 48 U/L (15-37) H Alanine Aminotransferase (ALT/SGPT) 36 U/L (12-78) Alkaline Phosphatase 99 U/L (46-116) Pro-B-Type Natriuretic Peptide 3348 pg/mL (0-125) H Total Protein 5.9 G/DL (6.4-8.2) L Albumin 2.5 G/DL (3.4-5.0) L Globulin 3.4 g/dL Albumin/Globulin Ratio 0.7 (1.0-2.7) L Cortisol AM Sample Pending Objective HEENT: Atraumatic, normocephalic. Anicteric. Pupils are equal, round, and reactive to light and accommodation. Extraocular muscles intact. NECK: JVP less than 5 cm. No carotid bruit. Carotid upstrokes 2+ bilaterally. CARDIOVASCULAR: Normal S1 and S2. Regular rate and rhythm, tachycardic, No murmurs, gallops, or rubs. PMI is at the fourth intercostal space at the midclavicular line. LUNGS: Clear to auscultation bilaterally. ABDOMEN: Soft, nontender, and nondistended. No hepatosplenomegaly. Positive bowel sounds. EXTREMITIES: No evidence of edema, clubbing, or cyanosis. EUFEMIA LACEY Aug 15, 2017 23:37
[2017-08-15] MEDS: LORazepam 0.5mg tab ORAL PRN (23:43)
[2017-08-16 00:28] VITALS: BP 137/55
--- NOTE | 2017-08-16 01:00 | Consultation ---
DATE OF CONSULTATION: 08/15/2017 HEMATOLOGY/ONCOLOGY CONSULTATION CONSULTING PHYSICIAN: Gerald Martínez M.D. REQUESTING PHYSICIAN: Kvng Estrada M.D. REASON FOR CONSULTATION: Evaluation of anemia and leukocytosis. IDENTIFICATION DATA: Dear Dr. Estrada, The patient is a pleasant 76-year-old female with a past medical history, which is significant for Alzheimer dementia, seizure disorder, headache, tinnitus, GERD, and hypertension, at this time presented to the hospital with left knee pain after fall. Upon arrival to the ER, noted to have an x-ray with fracture of the neck of the left femur. Open reduction and internal fixation completed by Dr. Doyle. Surgical site is clear, dry, and intact. The patient was noted to be with anemia, hemoglobin 8.4. Hematology Service was consulted for further evaluation and treatment. PAST MEDICAL HISTORY: As noted above. PAST SURGICAL HISTORY: Hip ORIF. ALLERGIES: Tylenol, codeine, amoxicillin, and NSAIDs. MEDICATIONS: Calcitonin, Keppra, Celexa, Depakote, Colace, Pepcid, fluticasone propionate , levofloxacin, lisinopril, milk of magnesia, Lopressor, Naproxen, Dilantin, ranitidine, tramadol, and vitamin A and D. FAMILY HISTORY: Noncontributory. REVIEW OF SYSTEMS: A 12-point review of systems was completed, otherwise negative. PHYSICAL EXAMINATION: VITAL SIGNS: Reviewed. GENERAL: No acute distress. PULMONARY: Decreased breath sounds. CARDIOVASCULAR: Regular rate. No S3 or S4. ABDOMEN: Soft, nontender, and nondistended. EXTREMITIES: A 1+ edema. Hip wound surgical site is noted, clear, dry, and intact. LABORATORY DATA: WBC 15.8, hemoglobin 8.5, hematocrit 25, and platelet count 189,000. INR 1.0. Glucose 101. Calcium is 7.6. Ferritin is noted to be 261. Total bilirubin 0.4. Iron of 51. ASSESSMENT AND RECOMMENDATIONS: 1. Anemia secondary to orthopedic procedure. Continue to closely monitor. Hemoglobin goal is above 7. 2. Anemia secondary to chronic disease. Closely monitor for improvement. 3. Hypotension, currently resolving with hydration. 4. Hip fracture, status post left hip open reduction and internal fixation. 5. Leukocytosis, probably secondary to reactive process from surgery. I appreciate the consultation. Gerald Martínez M.D. DR: CHARLEEN JOB#: [id number] CC:
[2017-08-16 04:23] VITALS: BP 109/65
[2017-08-16 08:00] VITALS: BP 97/52
[2017-08-16] MEDS: Metoprolol 25mg tab ORAL SCH ×2 (09:00→20:36)
[2017-08-16] MEDS ORDERED: Flonase Nasal Inhaler 16gm NASAL SCH ×2 (09:00)
[2017-08-16] MEDS ORDERED: Artificial Tears 1.4% Op Soln BOTH EYES PRN (09:00)
[2017-08-16] MEDS: Phospha 250 Neutral tab ORAL SCH ×3 (09:36→17:17)
[2017-08-16] MEDS: Docusate 100mg cap ORAL SCH ×3 (09:36→17:17)
[2017-08-16] MEDS: Depakote 500mg tab ORAL SCH ×2 (09:36→20:35)
[2017-08-16] MEDS: Flonase Nasal Inhaler 16gm NASAL SCH (09:37)
--- NOTE | 2017-08-16 10:18 | Nephrology Progress Note ---
Assessment/Plan Problem List: (1) Dehydration (2) Seizure disorder (3) Closed left hip fracture (4) Acute blood loss anemia Assessment Na lowering Closed left hip fracture Dehydration Hypotension on presentation HTN Osteoporosis Sz disorder HypoAlbuminemia Anemia worsened, transfused Plan had surgery 08/12/17 Transfused Bollous Albumin correct lytes monitor H&H adjust BP meds PO Vit D Per ortho Subjective ROS Limited/Unobtainable: No Constitutional: Reports: malaise Objective Objective Last 24 Hour Vital Signs Date Time Temp Pulse Resp B/P (MAP) Pulse Ox O2 Delivery O2 Flow Rate FiO2 08/16/17 09:00 92 97/52 08/16/17 08:00 97.5 92 20 97/52 94 Room Air 08/16/17 04:23 98.4 92 21 109/65 94 Room Air 08/16/17 04:23 Nasal Cannula 2.0 08/16/17 04:00 92 08/16/17 00:28 Nasal Cannula 2.0 08/16/17 00:28 99.5 91 21 137/55 97 08/16/17 00:00 94 08/15/17 21:29 123 142/85 08/15/17 21:00 95 Venturi Mask 15.0 08/15/17 20:00 110 08/15/17 20:00 98.6 123 24 142/85 89 08/15/17 20:00 Room Air 08/15/17 19:17 98.2 08/15/17 16:08 116 08/15/17 15:46 98.2 103 18 113/50 95 Room Air 08/15/17 13:00 98.1 93 18 106/60 95 Room Air 08/15/17 11:53 97 Intake and Output 08/15/17 08/16/17 19:00 07:00 Intake Total 100 ml 60 ml Output Total 700 ml Balance -600 ml 60 ml Intake Oral 100 ml IV Total 60 ml Output Urine Total 700 ml # Voids 3 2 # Bowel Movements 1 2 Laboratory Tests 08/15/17 20:20: White Blood Count 18.9H, Red Blood Count 3.57L, Hemoglobin 12.0#, Hematocrit 36.0#L, Mean Corpuscular Volume 101H, Mean Corpuscular Hemoglobin 33.6H, Mean Corpuscular Hemoglobin Concent 33.2, Red Cell Distribution Width 15.1H, Platelet Count 263, Mean Platelet Volume 7.2, Neutrophils (%) (Auto) 73.8, Lymphocytes (%) (Auto) 14.0L, Monocytes (%) (Auto) 11.2H, Eosinophils (%) (Auto ) 0.5, Basophils (%) (Auto) 0.5 Height (Feet): 5 Height (Inches): 0.00 Weight (Pounds): 120 General Appearance: no apparent distress Respiratory/Chest: decreased breath sounds Abdomen: soft Objective no change GIANNA AYALA Aug 16, 2017 10:18
[2017-08-16 12:00] VITALS: BP 110/61
[2017-08-16] MEDS: LORazepam 0.5mg tab ORAL PRN (13:02)
[2017-08-16] MEDS: Aztreonam Inj 1 GM in NS 55 ML IVPB SCH ×2 (13:47→22:27)
[2017-08-16] MEDS ORDERED: Aztreonam Inj 1 GM in D5W 55 ML IVPB SCH (14:00)
--- NOTE | 2017-08-16 15:47 | General Progress Note ---
Assessment/Plan Problem List: (1) Pain in limb ICD Codes: M79.609 - Pain in limb SNOMED: 58539037 (2) Seizure disorder ICD Codes: G40.909 - Seizure disorder SNOMED: 403018816 (3) Gait disturbance, post-stroke ICD Codes: I69.398 - Gait disturbance, post-stroke; R26.9 - Unspecified abnormalities of gait and mobility SNOMED: 197134006 (4) stroke, old (5) Closed left hip fracture ICD Codes: S72.002A - Fracture of unspecified part of neck of left femur, initial encounter for closed fracture SNOMED: 040209951 Qualifiers: Qualified Codes: S72.002A - Fracture of unspecified part of neck of left femur, initial encounter for closed fracture Status: not improved Assessment/Plan s/p transfusion leukocytosis worsened so cancelled dc and spoke w id re abx s/p left hip fracture orif Subjective Allergies: Coded Allergies: AMOXICILLIN (Verified Allergy, Severe, HIVES, RASH, 11/14/13) ACETAMINOPHEN (Verified Allergy, Mild, HIVES, GI UPSET, 11/14/13) CODEINE (Unverified Allergy, Unknown, Rash, 02/26/14) NSAIDS (NON-STEROIDAL ANTI-INFLAMMA (Verified Allergy, Unknown, 02/24/14) Patient allergic to all NSAid's according to Dr. Jarrett. Subjective hip pain Objective Last 24 Hour Vital Signs Date Time Temp Pulse Resp B/P (MAP) Pulse Ox O2 Delivery O2 Flow Rate FiO2 08/16/17 12:00 98.1 100 20 110/61 92 Room Air 08/16/17 12:00 100 08/16/17 09:00 92 97/52 08/16/17 08:00 97.5 92 20 97/52 94 Room Air 08/16/17 08:00 103 08/16/17 04:23 98.4 92 21 109/65 94 Room Air 08/16/17 04:23 Nasal Cannula 2.0 08/16/17 04:00 92 08/16/17 00:28 Nasal Cannula 2.0 08/16/17 00:28 99.5 91 21 137/55 97 08/16/17 00:00 94 08/15/17 21:29 123 142/85 08/15/17 21:00 95 Venturi Mask 15.0 08/15/17 20:00 110 08/15/17 20:00 98.6 123 24 142/85 89 08/15/17 20:00 Room Air 08/15/17 19:17 98.2 08/15/17 16:08 116 Intake and Output 08/15/17 08/16/17 19:00 07:00 Intake Total 100 ml 60 ml Output Total 700 ml Balance -600 ml 60 ml Intake Oral 100 ml IV Total 60 ml Output Urine Total 700 ml # Voids 3 2 # Bowel Movements 1 2 Laboratory Tests 08/15/17 20:20: White Blood Count 18.9H, Red Blood Count 3.57L, Hemoglobin 12.0#, Hematocrit 36.0#L, Mean Corpuscular Volume 101H, Mean Corpuscular Hemoglobin 33.6H, Mean Corpuscular Hemoglobin Concent 33.2, Red Cell Distribution Width 15.1H, Platelet Count 263, Mean Platelet Volume 7.2, Neutrophils (%) (Auto) 73.8, Lymphocytes (%) (Auto) 14.0L, Monocytes (%) (Auto) 11.2H, Eosinophils (%) (Auto ) 0.5, Basophils (%) (Auto) 0.5 08/16/17 11:20: C-Reactive Protein, Quantitative 17.6H Height (Feet): 5 Height (Inches): 0.00 Weight (Pounds): 120 Kvng Estrada MD Aug 16, 2017 15:47
[2017-08-16 16:00] VITALS: BP 139/66
[2017-08-16 19:51] LABS: APPEARANCE,URINE SLIGHTLY CLOUDY; BILIRUBIN, URINE NEGATIVE (NEGATIVE); COLOR,URINE AMBER; GLUCOSE, URINE (UA) NEGATIVE (NEGATIVE); KETONES,URINE NEGATIVE (NEGATIVE); LEUKOCYTE ESTERASE ,URINE 2+ (NEGATIVE); NITRITE,URINE POSITIVE (NEGATIVE); PH,URINE 6.5 (4.5-8.0); PROTEIN,URINE 1+ (NEGATIVE); UROBILINOGEN,URINE 4 MG/DL (0.0-1.0)
[2017-08-16 20:00] VITALS: BP 119/45
[2017-08-16] MEDS: Dyna-Hex 2% Top Sol 2oz TOPIC SCH (20:00)
[2017-08-16] MEDS: Phenytoin 100mg cap ORAL SCH (20:36)
[2017-08-16] MEDS: Iron Sucrose 100 MG in NS 55 ML IV SCH (20:36)
[2017-08-17 00:22] VITALS: BP 105/50
[2017-08-17 04:13] VITALS: BP 100/65
[2017-08-17] MEDS: Aztreonam Inj 1 GM in NS 55 ML IVPB SCH ×3 (05:39→22:00)
[2017-08-17 07:49] LABS: BASOPHILS % (AUTO) 0.5 % (0.0-2.0); EOSINOPHILS % (AUTO) 2.8 % (0.0-3.0); HEMATOCRIT 28.9 % (37.0-47.0); HEMOGLOBIN 9.5 G/DL (12.0-16.0); LYMPHOCYTES % (AUTO) 19.6 % (20.0-45.0); MEAN CORPUSCULAR VOLUME 102 FL (80-99); MONOCYTES % (AUTO) 8.7 % (1.0-10.0); NEUTROPHILS % (AUTO) 68.4 % (45.0-75.0); PLATELET COUNT 196 K/UL (150-450); RED BLOOD COUNT 2.84 M/UL (4.20-5.40); WHITE BLOOD COUNT 14.9 K/UL (4.8-10.8)
[2017-08-17 08:00] VITALS: BP 102/61
[2017-08-17 08:25] LABS: ALANINE AMINOTRANSFERASE 18 U/L (12-78); ALBUMIN 2.1 G/DL (3.4-5.0); ALBUMIN/GLOBULIN RATIO 0.6 (1.0-2.7); ALKALINE PHOSPHATASE 69 U/L (46-116); ANION GAP 7 mmol/L (5-15); ASPARTATE AMINO TRANSFERASE 24 U/L (15-37); BILIRUBIN,TOTAL 0.8 MG/DL (0.2-1.0); BLOOD UREA NITROGEN 14 mg/dL (7-18); CALCIUM 7.8 MG/DL (8.5-10.1); CARBON DIOXIDE 26 MMOL/L (21-32); CHLORIDE 108 MMOL/L (98-107); CREATININE 0.6 MG/DL (0.55-1.30); PHOSPHORUS 3.3 MG/DL (2.5-4.9); POTASSIUM 3.7 MMOL/L (3.5-5.1); SODIUM 141 MMOL/L (136-145)
[2017-08-17] MEDS: Metoprolol 25mg tab ORAL SCH ×2 (09:00→21:03)
[2017-08-17] MEDS: Phospha 250 Neutral tab ORAL SCH ×3 (09:01→17:18)
[2017-08-17] MEDS: Docusate 100mg cap ORAL SCH ×3 (09:01→17:19)
[2017-08-17] MEDS: Depakote 500mg tab ORAL SCH ×2 (09:02→21:02)
[2017-08-17] MEDS: Flonase Nasal Inhaler 16gm NASAL SCH (09:03)
--- NOTE | 2017-08-17 09:33 | Diagnostic Imaging Report ---
APPROVED REPORT CPT Code: 18314 Present Symptoms Lower Extremity Pain: Bilateral Comments: Screening. BILATERAL: Imaging reveals a patent deep venous system bilaterally. There is no evidence of thrombus within the femoral, popliteal or tibial segments. The greater saphenous veins are also within normal limits. Doppler indicates normal spontaneous flow within these segments.
--- NOTE | 2017-08-17 10:49 | Nephrology Progress Note ---
Assessment/Plan Problem List: (1) Dehydration (2) Seizure disorder (3) Closed left hip fracture (4) Acute blood loss anemia Assessment drop of Hgb again 12 to 9.5 leukocytosis improving Closed left hip fracture Dehydration Hypotension on presentation HTN Osteoporosis Sz disorder HypoAlbuminemia Anemia worsened, transfused Plan had surgery 08/12/17 watch H&H waiting for cortisol level Transfused Bollous Albumin correct lytes monitor H&H adjust BP meds PO Vit D Per ortho Subjective ROS Limited/Unobtainable: No Constitutional: Reports: malaise Objective Objective Last 24 Hour Vital Signs Date Time Temp Pulse Resp B/P (MAP) Pulse Ox O2 Delivery O2 Flow Rate FiO2 08/17/17 09:00 98 102/61 08/17/17 08:00 98.2 98 21 102/61 98 Nasal Cannula 2.0 08/17/17 04:13 97.2 94 18 100/65 Nasal Cannula 08/17/17 04:13 96 Nasal Cannula 2.0 08/17/17 04:00 91 08/17/17 00:22 96.8 85 18 105/50 98 Nasal Cannula 08/17/17 00:22 Nasal Cannula 2.0 08/17/17 00:00 94 08/16/17 20:36 98 139/66 08/16/17 20:00 97.2 94 18 119/45 95 Nasal Cannula 08/16/17 20:00 Nasal Cannula 2.0 08/16/17 20:00 107 08/16/17 16:00 98 08/16/17 16:00 97.9 93 20 139/66 95 Room Air 2.0 08/16/17 12:00 98.1 100 20 110/61 92 Room Air 08/16/17 12:00 100 Intake and Output 08/16/17 08/17/17 19:00 07:00 Intake Total 855 ml 225 ml Output Total 400 ml Balance 855 ml -175 ml Intake Oral 800 ml IV Total 55 ml 225 ml Output Urine Total 400 ml # Voids 1 # Bowel Movements 1 2 Laboratory Tests 08/16/17 11:20: C-Reactive Protein, Quantitative 17.6H 08/16/17 18:30: Urine Color Sarah, Urine Appearance Slightly cloudy, Urine pH 6.5, Urine Specific [place] 1.010, Urine Protein 1+H, Urine Glucose (UA) Negative, Urine Ketones Negative, Urine Occult Blood 3+H, Urine Nitrite PositiveH, Urine Bilirubin Negative, Urine Ictotest Positive, Urine Urobilinogen 4H, Urine Leukocyte Esterase 2+H, Urine RBC 2-4H, Urine WBC 20-30H, Urine Squamous Epithelial Cells Occasional, Urine Bacteria Few 08/17/17 05:40: White Blood Count 14.9H, Red Blood Count 2.84L, Hemoglobin 9.5L, Hematocrit 28.9L, Mean Corpuscular Volume 102H, Mean Corpuscular Hemoglobin 33.6H, Mean Corpuscular Hemoglobin Concent 32.9, Red Cell Distribution Width 15.0H, Platelet Count 196, Mean Platelet Volume 6.3L, Neutrophils (%) (Auto) 68.4, Lymphocytes (%) (Auto) 19.6L, Monocytes (%) (Auto) 8.7, Eosinophils (%) (Auto) 2.8, Basophils (%) (Auto) 0.5, Sodium Level 141, Potassium Level 3.7, Chloride Level 108H, Carbon Dioxide Level 26, Anion Gap 7, Blood Urea Nitrogen 14, Creatinine 0.6, Estimat Glomerular Filtration Rate , Glucose Level 96, Uric Acid 3.5, Calcium Level 7.8L, Phosphorus Level 3.3, Magnesium Level 2.1, Total Bilirubin 0.8, Aspartate Amino Transf (AST/SGOT) 24, Alanine Aminotransferase ( ALT/SGPT) 18, Alkaline Phosphatase 69, Pro-B-Type Natriuretic Peptide 1664H, Total Protein 5.6L, Albumin 2.1L, Globulin 3.5, Albumin/Globulin Ratio 0.6L Height (Feet): 5 Height (Inches): 0.00 Weight (Pounds): 120 General Appearance: no apparent distress Objective no change GIANNA AYALA Aug 17, 2017 10:49
--- NOTE | 2017-08-17 11:48 | Infectious Diseases Prog Note ---
Assessment/Plan Assessment/Plan A Pyuria/UTI Leukocytosis Left hip fracture s/p ORIF Osteoporosis Anemia Penicillin allergy P: Continue Azactam Subjective ROS Limited/Unobtainable: Yes Allergies: Coded Allergies: AMOXICILLIN (Verified Allergy, Severe, HIVES, RASH, 11/14/13) ACETAMINOPHEN (Verified Allergy, Mild, HIVES, GI UPSET, 11/14/13) CODEINE (Unverified Allergy, Unknown, Rash, 02/26/14) NSAIDS (NON-STEROIDAL ANTI-INFLAMMA (Verified Allergy, Unknown, 02/24/14) Patient allergic to all NSAid's according to Dr. Jarrett. Objective Vital Signs Last 24 Hour Vital Signs Date Time Temp Pulse Resp B/P (MAP) Pulse Ox O2 Delivery O2 Flow Rate FiO2 08/17/17 09:00 98 102/61 08/17/17 08:00 98.2 98 21 102/61 98 Nasal Cannula 2.0 08/17/17 04:13 97.2 94 18 100/65 Nasal Cannula 08/17/17 04:13 96 Nasal Cannula 2.0 08/17/17 04:00 91 08/17/17 00:22 96.8 85 18 105/50 98 Nasal Cannula 08/17/17 00:22 Nasal Cannula 2.0 08/17/17 00:00 94 08/16/17 20:36 98 139/66 08/16/17 20:00 97.2 94 18 119/45 95 Nasal Cannula 08/16/17 20:00 Nasal Cannula 2.0 08/16/17 20:00 107 08/16/17 16:00 98 08/16/17 16:00 97.9 93 20 139/66 95 Room Air 2.0 08/16/17 12:00 98.1 100 20 110/61 92 Room Air 08/16/17 12:00 100 Height (Feet): 5 Height (Inches): 0.00 Weight (Pounds): 120 General Appearance: no acute distress Respiratory/Chest: lungs clear Cardiovascular: normal rate Abdomen: soft, non tender Extremities: no edema Neurologic/Psychiatric: other - sleeping Microbiology Date/Time Source Procedure Growth Status 08/16/17 18:30 Urine,Clean Catch Urine Culture - Preliminary Resulted Laboratory Tests Test 08/16/17 18:30 08/17/17 05:40 Urine Color Sarah Urine Appearance Slightly cloudy Urine pH 6.5 (4.5-8.0) Urine Specific [place] 1.010 (1.005-1.035) Urine Protein 1+ (NEGATIVE) H Urine Glucose (UA) Negative (NEGATIVE) Urine Ketones Negative (NEGATIVE) Urine Occult Blood 3+ (NEGATIVE) H Urine Nitrite Positive (NEGATIVE) H Urine Bilirubin Negative (NEGATIVE) Urine Ictotest Positive Urine Urobilinogen 4 MG/DL (0.0-1.0) H Urine Leukocyte Esterase 2+ (NEGATIVE) H Urine RBC 2-4 /HPF (0 - 2) H Urine WBC 20-30 /HPF (0 - 2) H Urine Squamous Epithelial Cells Occasional /LPF Urine Bacteria Few /HPF (NONE) White Blood Count 14.9 K/UL (4.8-10.8) H Red Blood Count 2.84 M/UL (4.20-5.40) L Hemoglobin 9.5 G/DL (12.0-16.0) L Hematocrit 28.9 % (37.0-47.0) L Mean Corpuscular Volume 102 FL (80-99) H Mean Corpuscular Hemoglobin 33.6 PG (27.0-31.0) H Mean Corpuscular Hemoglobin Concent 32.9 G/DL (32.0-36.0) Red Cell Distribution Width 15.0 % (11.6-14.8) H Platelet Count 196 K/UL (150-450) Mean Platelet Volume 6.3 FL (6.5-10.1) L Neutrophils (%) (Auto) 68.4 % (45.0-75.0) Lymphocytes (%) (Auto) 19.6 % (20.0-45.0) L Monocytes (%) (Auto) 8.7 % (1.0-10.0) Eosinophils (%) (Auto) 2.8 % (0.0-3.0) Basophils (%) (Auto) 0.5 % (0.0-2.0) Sodium Level 141 MMOL/L (136-145) Potassium Level 3.7 MMOL/L (3.5-5.1) Chloride Level 108 MMOL/L (98-107) H Carbon Dioxide Level 26 MMOL/L (21-32) Anion Gap 7 mmol/L (5-15) Blood Urea Nitrogen 14 mg/dL (7-18) Creatinine 0.6 MG/DL (0.55-1.30) Estimat Glomerular Filtration Rate mL/min (>60) Glucose Level 96 MG/DL (74-106) Uric Acid 3.5 MG/DL (2.6-7.2) Calcium Level 7.8 MG/DL (8.5-10.1) L Phosphorus Level 3.3 MG/DL (2.5-4.9) Magnesium Level 2.1 MG/DL (1.8-2.4) Total Bilirubin 0.8 MG/DL (0.2-1.0) Aspartate Amino Transf (AST/SGOT) 24 U/L (15-37) Alanine Aminotransferase (ALT/SGPT) 18 U/L (12-78) Alkaline Phosphatase 69 U/L (46-116) Pro-B-Type Natriuretic Peptide 1664 pg/mL (0-125) H Total Protein 5.6 G/DL (6.4-8.2) L Albumin 2.1 G/DL (3.4-5.0) L Globulin 3.5 g/dL Albumin/Globulin Ratio 0.6 (1.0-2.7) L Current Medications Medications (Trade) Dose Ordered Sig/Arthur Route PRN Reason Start Time Stop Time Status Last Admin Dose Admin Artificial Tears (Akwa-Tears) 1 drop DAILYPRN PRN BOTH EYES Dry Eyes 08/15/17 12:00 09/14/17 11:59 Aztreonam 1 gm/ Sodium Chloride 55 ml @ 110 mls/hr Q8HR IVPB 08/16/17 14:00 08/23/17 13:59 08/17/17 05:39 Chlorhexidine Gluconate (Pattie-Hex 2%) 1 applic DAILY@1999 TOPIC 08/15/17 20:00 09/14/17 19:59 Divalproex Sodium (Depakote) 500 mg EVERY 12 HOURS ORAL 08/15/17 21:00 09/10/17 20:59 08/17/17 09:02 Docusate Sodium (Colace) 100 mg THREE TIMES A DAY ORAL 08/15/17 13:00 09/12/17 08:59 08/17/17 09:01 Ergocalciferol (Drisdol) 50,000 intlu We@1000 ORAL 08/20/17 10:00 09/12/17 14:59 Famotidine (Pepcid) 20 mg BID ORAL 08/15/17 18:00 09/11/17 08:59 08/17/17 09:01 Fluticasone Propionate (Flonase) 2 spray DAILY NASAL 08/16/17 09:00 09/11/17 08:59 08/17/17 09:03 Gabapentin (Neurontin) 400 mg Q8HR ORAL 08/15/17 14:00 09/10/17 21:59 08/17/17 05:39 Heparin Sodium/ Sodium Chloride (Heparin 2000 units/Ns 1000ml premix) 2,000 unit ONCE PRN INJ PICC PLACEMENT 08/15/17 18:00 08/18/17 23:59 Iron Sucrose 100 mg/Sodium Chloride 60 ml @ 240 mls/hr BEDTIME IV 08/15/17 21:00 08/17/17 21:14 08/16/17 20:36 Lidocaine HCl (Xylocaine 1% 30ml) 30 ml ONCE PRN INJ PICC PLACEMENT 08/15/17 18:00 08/18/17 23:59 Lorazepam (Ativan) 0.5 mg Q12H PRN ORAL For Anxiety 08/15/17 12:00 08/22/17 11:59 08/16/17 13:02 Magnesium Hydroxide (Mom) 30 ml DAILYPRN PRN ORAL Constipation 08/15/17 12:00 09/11/17 11:59 08/15/17 11:57 Metoprolol Tartrate (Lopressor) 25 mg EVERY 12 HOURS ORAL 08/15/17 21:00 09/14/17 08:59 08/16/17 20:36 Morphine Sulfate (Morphine Sulfate) 1 mg Q3H PRN IVP Moderate Pain (Pain Scale 4-6) 08/15/17 12:00 08/19/17 17:44 Morphine Sulfate (Morphine Sulfate) 2 mg Q3H PRN IVP Severe Pain (Pain Scale 7-10) 08/15/17 12:00 08/19/17 11:59 08/15/17 18:47 Phenytoin (Dilantin) 300 mg BEDTIME ORAL 08/15/17 21:00 09/10/17 20:59 08/16/17 20:36 Phosphorus (Phospha 250 Neutral) 250 mg THREE TIMES A DAY ORAL 08/15/17 13:00 09/14/17 08:59 08/17/17 09:01 Sodium Phosphate (Fleet's Sodium Phosl Enema) 133 ml DAILYPRN PRN RECTAL Constipation 08/15/17 19:00 09/11/17 17:44 Temazepam (Restoril) 7.5 mg HSPRN PRN ORAL Insomnia 08/16/17 21:00 08/23/17 20:59 08/16/17 22:42 Tramadol HCl (Ultram) 50 mg Q4H PRN ORAL Mild Pain (Pain Scale 1-3) 08/15/17 13:00 08/20/17 00:59 ROSALES DE LOS SANTOS Aug 17, 2017 11:47
[2017-08-17 12:00] VITALS: BP 114/58
[2017-08-17 16:00] VITALS: BP 118/68
--- NOTE | 2017-08-17 16:38 | Cardiology Progress Note ---
Assessment/Plan Assessment/Plan 1. Left hip ORIF, continue hydration, correction of anemia, pain control and DVT prophylaxis. 2. Hypotension, resolved, continue hydration. 3. Sinus tachycardia, ?etiology, 12 lead ECG. Subjective Subjective Sinus tachycardia at 116. Objective Last 24 Hour Vital Signs Date Time Temp Pulse Resp B/P (MAP) Pulse Ox O2 Delivery O2 Flow Rate FiO2 08/17/17 12:00 98.1 89 21 114/58 98 Nasal Cannula 2.0 08/17/17 12:00 93 08/17/17 09:00 98 102/61 08/17/17 08:00 98 08/17/17 08:00 98.2 98 21 102/61 98 Nasal Cannula 2.0 08/17/17 04:13 97.2 94 18 100/65 Nasal Cannula 08/17/17 04:13 96 Nasal Cannula 2.0 08/17/17 04:00 91 08/17/17 00:22 96.8 85 18 105/50 98 Nasal Cannula 08/17/17 00:22 Nasal Cannula 2.0 08/17/17 00:00 94 08/16/17 20:36 98 139/66 08/16/17 20:00 97.2 94 18 119/45 95 Nasal Cannula 08/16/17 20:00 Nasal Cannula 2.0 08/16/17 20:00 107 Intake and Output 08/16/17 08/17/17 19:00 07:00 Intake Total 855 ml 225 ml Output Total 400 ml Balance 855 ml -175 ml Intake Oral 800 ml IV Total 55 ml 225 ml Output Urine Total 400 ml # Voids 1 # Bowel Movements 1 2 Laboratory Tests Test 08/16/17 18:30 08/17/17 05:40 Urine Color Sarah Urine Appearance Slightly cloudy Urine pH 6.5 (4.5-8.0) Urine Specific [place] 1.010 (1.005-1.035) Urine Protein 1+ (NEGATIVE) H Urine Glucose (UA) Negative (NEGATIVE) Urine Ketones Negative (NEGATIVE) Urine Occult Blood 3+ (NEGATIVE) H Urine Nitrite Positive (NEGATIVE) H Urine Bilirubin Negative (NEGATIVE) Urine Ictotest Positive Urine Urobilinogen 4 MG/DL (0.0-1.0) H Urine Leukocyte Esterase 2+ (NEGATIVE) H Urine RBC 2-4 /HPF (0 - 2) H Urine WBC 20-30 /HPF (0 - 2) H Urine Squamous Epithelial Cells Occasional /LPF Urine Bacteria Few /HPF (NONE) White Blood Count 14.9 K/UL (4.8-10.8) H Red Blood Count 2.84 M/UL (4.20-5.40) L Hemoglobin 9.5 G/DL (12.0-16.0) L Hematocrit 28.9 % (37.0-47.0) L Mean Corpuscular Volume 102 FL (80-99) H Mean Corpuscular Hemoglobin 33.6 PG (27.0-31.0) H Mean Corpuscular Hemoglobin Concent 32.9 G/DL (32.0-36.0) Red Cell Distribution Width 15.0 % (11.6-14.8) H Platelet Count 196 K/UL (150-450) Mean Platelet Volume 6.3 FL (6.5-10.1) L Neutrophils (%) (Auto) 68.4 % (45.0-75.0) Lymphocytes (%) (Auto) 19.6 % (20.0-45.0) L Monocytes (%) (Auto) 8.7 % (1.0-10.0) Eosinophils (%) (Auto) 2.8 % (0.0-3.0) Basophils (%) (Auto) 0.5 % (0.0-2.0) Sodium Level 141 MMOL/L (136-145) Potassium Level 3.7 MMOL/L (3.5-5.1) Chloride Level 108 MMOL/L (98-107) H Carbon Dioxide Level 26 MMOL/L (21-32) Anion Gap 7 mmol/L (5-15) Blood Urea Nitrogen 14 mg/dL (7-18) Creatinine 0.6 MG/DL (0.55-1.30) Estimat Glomerular Filtration Rate mL/min (>60) Glucose Level 96 MG/DL (74-106) Uric Acid 3.5 MG/DL (2.6-7.2) Calcium Level 7.8 MG/DL (8.5-10.1) L Phosphorus Level 3.3 MG/DL (2.5-4.9) Magnesium Level 2.1 MG/DL (1.8-2.4) Total Bilirubin 0.8 MG/DL (0.2-1.0) Aspartate Amino Transf (AST/SGOT) 24 U/L (15-37) Alanine Aminotransferase (ALT/SGPT) 18 U/L (12-78) Alkaline Phosphatase 69 U/L (46-116) Pro-B-Type Natriuretic Peptide 1664 pg/mL (0-125) H Total Protein 5.6 G/DL (6.4-8.2) L Albumin 2.1 G/DL (3.4-5.0) L Globulin 3.5 g/dL Albumin/Globulin Ratio 0.6 (1.0-2.7) L Microbiology Date/Time Source Procedure Growth Status 08/16/17 18:30 Urine,Clean Catch Urine Culture - Preliminary Resulted Objective HEENT: Atraumatic, normocephalic. Anicteric. Pupils are equal, round, and reactive to light and accommodation. Extraocular muscles intact. NECK: JVP less than 5 cm. No carotid bruit. Carotid upstrokes 2+ bilaterally. CARDIOVASCULAR: Normal S1 and S2. Regular rate and rhythm, tachycardic, No murmurs, gallops, or rubs. PMI is at the fourth intercostal space at the midclavicular line. LUNGS: Clear to auscultation bilaterally. ABDOMEN: Soft, nontender, and nondistended. No hepatosplenomegaly. Positive bowel sounds. EXTREMITIES: No evidence of edema, clubbing, or cyanosis. EUFEMIA LACEY Aug 17, 2017 16:38
[2017-08-17 20:02] VITALS: BP 112/48
[2017-08-17] MEDS: Dyna-Hex 2% Top Sol 2oz TOPIC SCH (20:58)
[2017-08-17] MEDS: Phenytoin 100mg cap ORAL SCH (20:59)
[2017-08-17] MEDS: Iron Sucrose 100 MG in NS 55 ML IV SCH ×2 (21:00→21:04)
--- NOTE | 2017-08-17 22:25 | General Progress Note ---
Assessment/Plan Problem List: (1) Pain in limb ICD Codes: M79.609 - Pain in limb SNOMED: 30324417 (2) Seizure disorder ICD Codes: G40.909 - Seizure disorder SNOMED: 787888450 (3) Gait disturbance, post-stroke ICD Codes: I69.398 - Gait disturbance, post-stroke; R26.9 - Unspecified abnormalities of gait and mobility SNOMED: 221580753 (4) stroke, old (5) Closed left hip fracture ICD Codes: S72.002A - Fracture of unspecified part of neck of left femur, initial encounter for closed fracture SNOMED: 606571974 Qualifiers: Qualified Codes: S72.002A - Fracture of unspecified part of neck of left femur, initial encounter for closed fracture Status: progressing Assessment/Plan s/p transfusion wbc went up and had to cancel dc abx per id s/p left hip fracture orif Subjective Allergies: Coded Allergies: AMOXICILLIN (Verified Allergy, Severe, HIVES, RASH, 11/14/13) ACETAMINOPHEN (Verified Allergy, Mild, HIVES, GI UPSET, 11/14/13) CODEINE (Unverified Allergy, Unknown, Rash, 02/26/14) NSAIDS (NON-STEROIDAL ANTI-INFLAMMA (Verified Allergy, Unknown, 02/24/14) Patient allergic to all NSAid's according to Dr. Jarrett. Subjective hip pain Objective Last 24 Hour Vital Signs Date Time Temp Pulse Resp B/P (MAP) Pulse Ox O2 Delivery O2 Flow Rate FiO2 08/17/17 21:03 96 126/68 08/17/17 20:02 98.1 88 18 112/48 97 Nasal Cannula 08/17/17 16:00 93 08/17/17 16:00 96.2 94 21 118/68 94 Nasal Cannula 2.0 08/17/17 12:00 98.1 89 21 114/58 98 Nasal Cannula 2.0 08/17/17 12:00 93 08/17/17 09:00 98 102/61 08/17/17 08:00 98 08/17/17 08:00 98.2 98 21 102/61 98 Nasal Cannula 2.0 08/17/17 04:13 97.2 94 18 100/65 Nasal Cannula 08/17/17 04:13 96 Nasal Cannula 2.0 1/21/18 04:00 91 08/17/17 00:22 96.8 85 18 105/50 98 Nasal Cannula 08/17/17 00:22 Nasal Cannula 2.0 08/17/17 00:00 94 Intake and Output 08/16/17 08/17/17 19:00 07:00 Intake Total 855 ml 225 ml Output Total 400 ml Balance 855 ml -175 ml Intake Oral 800 ml IV Total 55 ml 225 ml Output Urine Total 400 ml # Voids 1 # Bowel Movements 1 2 Laboratory Tests 08/17/17 05:40: White Blood Count 14.9H, Red Blood Count 2.84L, Hemoglobin 9.5L, Hematocrit 28.9L, Mean Corpuscular Volume 102H, Mean Corpuscular Hemoglobin 33.6H, Mean Corpuscular Hemoglobin Concent 32.9, Red Cell Distribution Width 15.0H, Platelet Count 196, Mean Platelet Volume 6.3L, Neutrophils (%) (Auto) 68.4, Lymphocytes (%) (Auto) 19.6L, Monocytes (%) (Auto) 8.7, Eosinophils (%) (Auto) 2.8, Basophils (%) (Auto) 0.5, Sodium Level 141, Potassium Level 3.7, Chloride Level 108H, Carbon Dioxide Level 26, Anion Gap 7, Blood Urea Nitrogen 14, Creatinine 0.6, Estimat Glomerular Filtration Rate , Glucose Level 96, Uric Acid 3.5, Calcium Level 7.8L, Phosphorus Level 3.3, Magnesium Level 2.1, Total Bilirubin 0.8, Aspartate Amino Transf (AST/SGOT) 24, Alanine Aminotransferase ( ALT/SGPT) 18, Alkaline Phosphatase 69, Pro-B-Type Natriuretic Peptide 1664H, Total Protein 5.6L, Albumin 2.1L, Globulin 3.5, Albumin/Globulin Ratio 0.6L Height (Feet): 5 Height (Inches): 0.00 Weight (Pounds): 120 Cardiovascular: normal rate Abdomen: soft Kvng Estrada MD Aug 17, 2017 22:25
--- NOTE | 2017-08-17 23:56 | General Progress Note ---
Assessment/Plan Status: stable Assessment/Plan 1. Anemia secondary to orthopedic procedure. Continue to closely monitor. Hemoglobin goal is above 7. --> Does not need prbc today. 2. Anemia secondary to chronic disease. --> Closely monitor for improvement. 3. Hypotension, currently resolving with hydration. 4. Hip fracture, status post left hip open reduction and internal fixation. 5. Leukocytosis, probably secondary to reactive process from surgery. --> Improving. Subjective Date patient seen: Aug 16, 2017 Constitutional: Denies: no symptoms, chills, diaphoresis, fever, malaise, weakness, other HEENT: Denies: no symptoms, eye pain, blurred vision, tearing, double vision, ear pain, ear discharge, nose pain, nose congestion, throat pain, throat swelling, mouth pain, mouth swelling, other Cardiovascular: Denies: no symptoms, chest pain, edema, irregular heart rate, lightheadedness, palpitations, syncope, other Respiratory: Denies: no symptoms, cough, orthopnea, shortness of breath, SOB with excertion, SOB at rest, sputum, stridor, wheezing, other Gastrointestinal/Abdominal: Denies: no symptoms, abdomen distended, abdominal pain, black stools, tarry stools, blood in stool, constipated, diarrhea, difficulty swallowing, nausea, poor appetite, poor fluid intake, rectal bleeding , vomiting, other Allergies: Coded Allergies: AMOXICILLIN (Verified Allergy, Severe, HIVES, RASH, 11/14/13) ACETAMINOPHEN (Verified Allergy, Mild, HIVES, GI UPSET, 11/14/13) CODEINE (Unverified Allergy, Unknown, Rash, 02/26/14) NSAIDS (NON-STEROIDAL ANTI-INFLAMMA (Verified Allergy, Unknown, 02/24/14) Patient allergic to all NSAid's according to Dr. Jarrett. Subjective Bilateral DVT. Leukocytosis. On anticoag Objective Last 24 Hour Vital Signs Date Time Temp Pulse Resp B/P (MAP) Pulse Ox O2 Delivery O2 Flow Rate FiO2 08/17/17 21:03 96 126/68 08/17/17 20:02 98.1 88 18 112/48 97 Nasal Cannula 08/17/17 20:00 95 08/17/17 16:00 93 08/17/17 16:00 96.2 94 21 118/68 94 Nasal Cannula 2.0 08/17/17 12:00 98.1 89 21 114/58 98 Nasal Cannula 2.0 08/17/17 12:00 93 08/17/17 09:00 98 102/61 08/17/17 08:00 98 08/17/17 08:00 98.2 98 21 102/61 98 Nasal Cannula 2.0 08/17/17 04:13 97.2 94 18 100/65 Nasal Cannula 08/17/17 04:13 96 Nasal Cannula 2.0 08/17/17 04:00 91 08/17/17 00:22 96.8 85 18 105/50 98 Nasal Cannula 08/17/17 00:22 Nasal Cannula 2.0 08/17/17 00:00 94 Intake and Output 08/16/17 08/17/17 19:00 07:00 Intake Total 855 ml 225 ml Output Total 400 ml Balance 855 ml -175 ml Intake Oral 800 ml IV Total 55 ml 225 ml Output Urine Total 400 ml # Voids 1 # Bowel Movements 1 2 Laboratory Tests 08/17/17 05:40: White Blood Count 14.9H, Red Blood Count 2.84L, Hemoglobin 9.5L, Hematocrit 28.9L, Mean Corpuscular Volume 102H, Mean Corpuscular Hemoglobin 33.6H, Mean Corpuscular Hemoglobin Concent 32.9, Red Cell Distribution Width 15.0H, Platelet Count 196, Mean Platelet Volume 6.3L, Neutrophils (%) (Auto) 68.4, Lymphocytes (%) (Auto) 19.6L, Monocytes (%) (Auto) 8.7, Eosinophils (%) (Auto) 2.8, Basophils (%) (Auto) 0.5, Sodium Level 141, Potassium Level 3.7, Chloride Level 108H, Carbon Dioxide Level 26, Anion Gap 7, Blood Urea Nitrogen 14, Creatinine 0.6, Estimat Glomerular Filtration Rate , Glucose Level 96, Uric Acid 3.5, Calcium Level 7.8L, Phosphorus Level 3.3, Magnesium Level 2.1, Total Bilirubin 0.8, Aspartate Amino Transf (AST/SGOT) 24, Alanine Aminotransferase ( ALT/SGPT) 18, Alkaline Phosphatase 69, Pro-B-Type Natriuretic Peptide 1664H, Total Protein 5.6L, Albumin 2.1L, Globulin 3.5, Albumin/Globulin Ratio 0.6L Height (Feet): 5 Height (Inches): 0.00 Weight (Pounds): 120 Respiratory/Chest: decreased breath sounds Abdomen: non tender, soft Gerald Martínez Aug 17, 2017 23:56
[2017-08-18] VITALS: BP 109/50
[2017-08-18 04:06] VITALS: BP 111/54
[2017-08-18] MEDS: Aztreonam Inj 1 GM in NS 55 ML IVPB SCH (06:00)
[2017-08-18 07:51] LABS: BASOPHILS % (AUTO) 0.3 % (0.0-2.0); EOSINOPHILS % (AUTO) 3.4 % (0.0-3.0); HEMATOCRIT 33.1 % (37.0-47.0); HEMOGLOBIN 10.6 G/DL (12.0-16.0); LYMPHOCYTES % (AUTO) 20.4 % (20.0-45.0); MEAN CORPUSCULAR VOLUME 103 FL (80-99); MONOCYTES % (AUTO) 8.7 % (1.0-10.0); NEUTROPHILS % (AUTO) 67.3 % (45.0-75.0); PLATELET COUNT 247 K/UL (150-450); RED BLOOD COUNT 3.21 M/UL (4.20-5.40); RED CELL DISTRIBUTION WIDTH 15.6 % (11.6-14.8); WHITE BLOOD COUNT 13.8 K/UL (4.8-10.8)
[2017-08-18 08:00] VITALS: BP 138/78
[2017-08-18 08:12] LABS: ALANINE AMINOTRANSFERASE 27 U/L (12-78); ALBUMIN 2.5 G/DL (3.4-5.0); ALBUMIN/GLOBULIN RATIO 0.6 (1.0-2.7); ALKALINE PHOSPHATASE 81 U/L (46-116); ANION GAP 9 mmol/L (5-15); ASPARTATE AMINO TRANSFERASE 27 U/L (15-37); BILIRUBIN,TOTAL 0.9 MG/DL (0.2-1.0); BLOOD UREA NITROGEN 12 mg/dL (7-18); CALCIUM 8.4 MG/DL (8.5-10.1); CARBON DIOXIDE 26 MMOL/L (21-32); CHLORIDE 104 MMOL/L (98-107); CREATININE 0.6 MG/DL (0.55-1.30); PHOSPHORUS 3.6 MG/DL (2.5-4.9); POTASSIUM 4.5 MMOL/L (3.5-5.1); SODIUM 139 MMOL/L (136-145)
[2017-08-18 09:26] VITALS: BP 138/78
[2017-08-18] MEDS: Metoprolol 25mg tab ORAL SCH (09:26)
[2017-08-18] MEDS: Docusate 100mg cap ORAL SCH ×3 (09:26→18:48)
[2017-08-18] MEDS: Phospha 250 Neutral tab ORAL SCH ×3 (09:26→18:47)
[2017-08-18] MEDS: Depakote 500mg tab ORAL SCH (09:26)
[2017-08-18] MEDS: Flonase Nasal Inhaler 16gm NASAL SCH (09:27)
[2017-08-18] MEDS ORDERED: Lidocaine 1% Plain 30 ml INJ PRN (09:45)
[2017-08-18] MEDS ORDERED: Heparin 2000 units/Ns 1000ml INJ PRN (09:45)
[2017-08-18] MEDS ORDERED: Milk of Magnesia 30ml Ud ORAL PRN (11:00)
[2017-08-18] MEDS ORDERED: Fleet's Enema 133ml RECTAL PRN (11:00)
[2017-08-18] MEDS ORDERED: Morphine Sulfate 2mg/ml Inj IVP PRN ×2 (11:00)
[2017-08-18] MEDS ORDERED: LORazepam 0.5mg tab ORAL PRN (11:00)
[2017-08-18] MEDS ORDERED: traMADol 50mg tab ORAL PRN (11:00)
[2017-08-18] MEDS ORDERED: Artificial Tears 1.4% Op Soln BOTH EYES PRN (11:00)
[2017-08-18] MEDS ORDERED: Haloperidol 5mg/ml Inj IM PRN (12:45)
--- NOTE | 2017-08-18 13:32 | General Progress Note ---
Assessment/Plan Assessment/Plan #. Bilateral Deep Venous Thrombosis. --> INR goal is between 2 and 3 --> Monitor and give anticoag as needed. #. Anemia secondary to orthopedic procedure. --> Continue to closely monitor. --> Hemoglobin goal is above 7. --> Does not need prbc today as hemoglobin has been >10 #. Anemia secondary to chronic disease. --> Anemia is mild at this time. #. Hypotension, currently resolving with hydration. #. Hip fracture, status post left hip open reduction and internal fixation. #. Leukocytosis, probably secondary to reactive process from surgery. --> Improving. Subjective Date patient seen: Aug 18, 2017 Constitutional: Denies: no symptoms, chills, diaphoresis, fever, malaise, weakness, other HEENT: Denies: no symptoms, eye pain, blurred vision, tearing, double vision, ear pain, ear discharge, nose pain, nose congestion, throat pain, throat swelling, mouth pain, mouth swelling, other Cardiovascular: Denies: no symptoms, chest pain, edema, irregular heart rate, lightheadedness, palpitations, syncope, other Respiratory: Denies: no symptoms, cough, orthopnea, shortness of breath, SOB with excertion, SOB at rest, sputum, stridor, wheezing, other Gastrointestinal/Abdominal: Denies: no symptoms, abdomen distended, abdominal pain, black stools, tarry stools, blood in stool, constipated, diarrhea, difficulty swallowing, nausea, poor appetite, poor fluid intake, rectal bleeding , vomiting, other Allergies: Coded Allergies: AMOXICILLIN (Verified Allergy, Severe, HIVES, RASH, 11/14/13) ACETAMINOPHEN (Verified Allergy, Mild, HIVES, GI UPSET, 11/14/13) CODEINE (Unverified Allergy, Unknown, Rash, 02/26/14) NSAIDS (NON-STEROIDAL ANTI-INFLAMMA (Verified Allergy, Unknown, 02/24/14) Patient allergic to all NSAid's according to Dr. Jarrett. Subjective Leukocytosis improving. H/H stable. Objective Last 24 Hour Vital Signs Date Time Temp Pulse Resp B/P (MAP) Pulse Ox O2 Delivery O2 Flow Rate FiO2 08/18/17 09:26 80 138/78 08/18/17 08:00 85 08/18/17 08:00 97.9 80 18 138/78 98 Nasal Cannula 2.0 08/18/17 04:06 97.9 69 18 111/54 Nasal Cannula 08/18/17 03:34 83 08/18/17 00:00 92 08/18/17 00:00 98.4 74 18 109/50 96 Nasal Cannula 08/17/17 21:03 96 126/68 08/17/17 20:02 98.1 88 18 112/48 97 Nasal Cannula 08/17/17 20:00 95 08/17/17 16:00 93 08/17/17 16:00 96.2 94 21 118/68 94 Nasal Cannula 2.0 Intake and Output 08/17/17 08/18/17 19:00 07:00 Intake Total 775 ml 220 ml Balance 775 ml 220 ml Intake Oral 720 ml 220 ml IV Total 55 ml # Voids 1 7 Laboratory Tests 08/18/17 05:25: White Blood Count 13.8H, Red Blood Count 3.21L, Hemoglobin 10.6L, Hematocrit 33.1L, Mean Corpuscular Volume 103H, Mean Corpuscular Hemoglobin 33.0H, Mean Corpuscular Hemoglobin Concent 32.0, Red Cell Distribution Width 15.6H, Platelet Count 247, Mean Platelet Volume 6.2L, Neutrophils (%) (Auto) 67.3, Lymphocytes (%) (Auto) 20.4, Monocytes (%) (Auto) 8.7, Eosinophils (%) (Auto) 3.4H, Basophils (%) (Auto) 0.3, Sodium Level 139, Potassium Level 4.5, Chloride Level 104, Carbon Dioxide Level 26, Anion Gap 9, Blood Urea Nitrogen 12, Creatinine 0.6, Estimat Glomerular Filtration Rate , Glucose Level 84, Calcium Level 8.4L, Phosphorus Level 3.6, Magnesium Level 1.9, Total Bilirubin 0.9, Aspartate Amino Transf (AST/SGOT) 27, Alanine Aminotransferase (ALT/SGPT) 27, Alkaline Phosphatase 81, Total Protein 6.8, Albumin 2.5L, Globulin 4.3, Albumin/ Globulin Ratio 0.6L Height (Feet): 5 Height (Inches): 0.00 Weight (Pounds): 120 General Appearance: no apparent distress Neck: supple Cardiovascular: normal rate, regular rhythm Respiratory/Chest: decreased breath sounds Abdomen: non tender, soft Gerald Martínez Aug 18, 2017 13:32
[2017-08-18] MEDS ORDERED: Aztreonam Inj 1 GM in NS 55 ML IVPB SCH (14:00)
--- NOTE | 2017-08-18 15:47 | Nephrology Progress Note ---
Assessment/Plan Problem List: (1) Dehydration (2) Seizure disorder (3) Closed left hip fracture (4) Acute blood loss anemia Assessment Hgb stable leukocytosis improving Closed left hip fracture Dehydration Hypotension on presentation HTN Osteoporosis Sz disorder HypoAlbuminemia Anemia worsened, transfused Plan had surgery 08/12/17 watch H&H waiting for cortisol level Transfused Bollous Albumin correct lytes monitor H&H adjust BP meds PO Vit D Per ortho Subjective ROS Limited/Unobtainable: No Constitutional: Reports: malaise Objective Objective Last 24 Hour Vital Signs Date Time Temp Pulse Resp B/P (MAP) Pulse Ox O2 Delivery O2 Flow Rate FiO2 08/18/17 09:26 80 138/78 08/18/17 08:00 85 08/18/17 08:00 97.9 80 18 138/78 98 Nasal Cannula 2.0 08/18/17 04:06 97.9 69 18 111/54 Nasal Cannula 08/18/17 03:34 83 08/18/17 00:00 92 08/18/17 00:00 98.4 74 18 109/50 96 Nasal Cannula 08/17/17 21:03 96 126/68 08/17/17 20:02 98.1 88 18 112/48 97 Nasal Cannula 08/17/17 20:00 95 08/17/17 16:00 93 08/17/17 16:00 96.2 94 21 118/68 94 Nasal Cannula 2.0 Intake and Output 08/17/17 08/18/17 19:00 07:00 Intake Total 775 ml 220 ml Balance 775 ml 220 ml Intake Oral 720 ml 220 ml IV Total 55 ml # Voids 1 7 Laboratory Tests 08/18/17 05:25: White Blood Count 13.8H, Red Blood Count 3.21L, Hemoglobin 10.6L, Hematocrit 33.1L, Mean Corpuscular Volume 103H, Mean Corpuscular Hemoglobin 33.0H, Mean Corpuscular Hemoglobin Concent 32.0, Red Cell Distribution Width 15.6H, Platelet Count 247, Mean Platelet Volume 6.2L, Neutrophils (%) (Auto) 67.3, Lymphocytes (%) (Auto) 20.4, Monocytes (%) (Auto) 8.7, Eosinophils (%) (Auto) 3.4H, Basophils (%) (Auto) 0.3, Sodium Level 139, Potassium Level 4.5, Chloride Level 104, Carbon Dioxide Level 26, Anion Gap 9, Blood Urea Nitrogen 12, Creatinine 0.6, Estimat Glomerular Filtration Rate , Glucose Level 84, Calcium Level 8.4L, Phosphorus Level 3.6, Magnesium Level 1.9, Total Bilirubin 0.9, Aspartate Amino Transf (AST/SGOT) 27, Alanine Aminotransferase (ALT/SGPT) 27, Alkaline Phosphatase 81, Total Protein 6.8, Albumin 2.5L, Globulin 4.3, Albumin/ Globulin Ratio 0.6L Height (Feet): 5 Height (Inches): 0.00 Weight (Pounds): 120 General Appearance: no apparent distress Cardiovascular: normal rate Respiratory/Chest: decreased breath sounds Abdomen: soft Objective no change GIANNA AYALA Aug 18, 2017 15:47
--- NOTE | 2017-08-18 16:01 | Pre-Procedure Note/Attestation ---
Pre-Procedure Note/Attestation Complete Prior to Procedure Planned Procedure: not applicable Procedure Narrative: PICC Indications for Procedure Pre-Operative Diagnosis: need for IV access Attestation Informed consent obtained by the primary team. This was confirmed prior to the procedure. I attest that I re-evaluated the patient just prior to the surgery and that there has been no change in the patient's H&P, except as documented below: Bashir Salazar M.D. Aug 18, 2017 16:00
--- NOTE | 2017-08-18 16:18 | Diagnostic Imaging Report ---
Indications: Needs long-term IV access Technique: Informed consent obtained prior to the procedure. Ultrasound confirms patent compressible right basilic vein. Total sterile technique, including sterile probe cover and sterile gel, hat, mask,, sterile gown, large sterile drape, and preparation with 2% chlorhexidine utilized. Local anesthesia with 1% lidocaine. Under real-time ultrasound guidance, puncture right basilic vein using 21-gauge needle, documented and archived, passage 0.018 guidewire under direct fluoroscopy, which was used to determine appropriate catheter length, exchange for 5 Israeli peel-away sheath. 5 Israeli dual-lumen power PICC cut to 35 cm. It was inserted through the peel-away sheath. Peel-away sheath and guidewire removed. Catheter fixed to the skin. Both catheter ports aspirated and flushed. Patient tolerated procedure well, without immediate complication. Digital radiograph documents satisfactory catheter tip position, at the cavoatrial junction. Total fluoroscopy time 0.2 minutes. Total dose area product 13 dGycm2 Impression: Successful placement of 5 Israeli double-lumen PICC under sonographic and fluoroscopic guidance, as described above.
[2017-08-18] MEDS ORDERED: ARTIFICIAL TEAR15 ML BOTH EYES (17:57)
[2017-08-18] MEDS ORDERED: [UNRECOGNIZED DRUG - OTHER] IV (17:57)
[2017-08-18] MEDS ORDERED: VITAMIN D250000 UNI1 ORAL (17:58)
[2017-08-18] MEDS ORDERED: DEPAKOTE250 MG PO (17:58)
[2017-08-18] MEDS ORDERED: COLACE100 MG ORAL (17:58)
[2017-08-18] MEDS ORDERED: DYNAHEX 2% LIQ120 ML TP (17:58)
[2017-08-18] MEDS ORDERED: PEPCID20 MG ORAL (17:59)
[2017-08-18] MEDS ORDERED: FLEET ENEMA133 ML RECTAL (17:59)
[2017-08-18] MEDS ORDERED: FLONASE ALLERG9.9 ML NS (18:00)
[2017-08-18] MEDS ORDERED: NEURONTIN400 MG ORAL (18:00)
[2017-08-18] MEDS ORDERED: ATIVAN0.5 MG ORAL (18:01)
[2017-08-18] MEDS ORDERED: HALDOL5 MG/1 ML IM (18:01)
[2017-08-18] MEDS ORDERED: MOM30 ML ORAL (18:02)
[2017-08-18] MEDS ORDERED: METOPROLOL TART25 MG ORAL (18:02)
[2017-08-18] MEDS ORDERED: DILANTIN100 MG ORAL (18:03)
[2017-08-18] MEDS ORDERED: MORPHINE 22 MG/1 ML IV ×2 (18:03→18:11)
[2017-08-18] MEDS ORDERED: RESTORIL7.5 MG ORAL (18:04)
[2017-08-18] MEDS ORDERED: PHOSPHA 250 NE250 M1 ORAL (18:04)
[2017-08-18] MEDS ORDERED: TRAMADOL HCL50 MG ORAL (18:05)
[2017-08-18] MEDS ORDERED: NS 275ml ONE (18:42)
[2017-08-18] MEDS ORDERED: Tubing IV Secondary IV ONE (18:42)
--- NOTE | 2017-08-18 18:46 | Cardiology Progress Note ---
Assessment/Plan Assessment/Plan 1. Left hip ORIF, continue hydration, correction of anemia, pain control and DVT prophylaxis. 2. Hypotension, resolved, continue hydration. 3. Sinus tachycardia, resolved. Subjective Subjective Sinus rhythm at 80. Objective Last 24 Hour Vital Signs Date Time Temp Pulse Resp B/P (MAP) Pulse Ox O2 Delivery O2 Flow Rate FiO2 08/18/17 09:26 80 138/78 08/18/17 08:00 85 08/18/17 08:00 97.9 80 18 138/78 98 Nasal Cannula 2.0 08/18/17 04:06 97.9 69 18 111/54 Nasal Cannula 08/18/17 03:34 83 08/18/17 00:00 92 08/18/17 00:00 98.4 74 18 109/50 96 Nasal Cannula 08/17/17 21:03 96 126/68 08/17/17 20:02 98.1 88 18 112/48 97 Nasal Cannula 08/17/17 20:00 95 Intake and Output 08/17/17 08/18/17 19:00 07:00 Intake Total 775 ml 220 ml Balance 775 ml 220 ml Intake Oral 720 ml 220 ml IV Total 55 ml # Voids 1 7 Laboratory Tests Test 08/18/17 05:25 White Blood Count 13.8 K/UL (4.8-10.8) H Red Blood Count 3.21 M/UL (4.20-5.40) L Hemoglobin 10.6 G/DL (12.0-16.0) L Hematocrit 33.1 % (37.0-47.0) L Mean Corpuscular Volume 103 FL (80-99) H Mean Corpuscular Hemoglobin 33.0 PG (27.0-31.0) H Mean Corpuscular Hemoglobin Concent 32.0 G/DL (32.0-36.0) Red Cell Distribution Width 15.6 % (11.6-14.8) H Platelet Count 247 K/UL (150-450) Mean Platelet Volume 6.2 FL (6.5-10.1) L Neutrophils (%) (Auto) 67.3 % (45.0-75.0) Lymphocytes (%) (Auto) 20.4 % (20.0-45.0) Monocytes (%) (Auto) 8.7 % (1.0-10.0) Eosinophils (%) (Auto) 3.4 % (0.0-3.0) H Basophils (%) (Auto) 0.3 % (0.0-2.0) Sodium Level 139 MMOL/L (136-145) Potassium Level 4.5 MMOL/L (3.5-5.1) Chloride Level 104 MMOL/L (98-107) Carbon Dioxide Level 26 MMOL/L (21-32) Anion Gap 9 mmol/L (5-15) Blood Urea Nitrogen 12 mg/dL (7-18) Creatinine 0.6 MG/DL (0.55-1.30) Estimat Glomerular Filtration Rate mL/min (>60) Glucose Level 84 MG/DL (74-106) Calcium Level 8.4 MG/DL (8.5-10.1) L Phosphorus Level 3.6 MG/DL (2.5-4.9) Magnesium Level 1.9 MG/DL (1.8-2.4) Total Bilirubin 0.9 MG/DL (0.2-1.0) Aspartate Amino Transf (AST/SGOT) 27 U/L (15-37) Alanine Aminotransferase (ALT/SGPT) 27 U/L (12-78) Alkaline Phosphatase 81 U/L (46-116) Total Protein 6.8 G/DL (6.4-8.2) Albumin 2.5 G/DL (3.4-5.0) L Globulin 4.3 g/dL Albumin/Globulin Ratio 0.6 (1.0-2.7) L Microbiology Date/Time Source Procedure Growth Status 08/16/17 18:30 Urine,Clean Catch Urine Culture - Preliminary Gram Negative Bacillus 1 Streptococcus Species Resulted Objective HEENT: Atraumatic, normocephalic. Anicteric. Pupils are equal, round, and reactive to light and accommodation. Extraocular muscles intact. NECK: JVP less than 5 cm. No carotid bruit. Carotid upstrokes 2+ bilaterally. CARDIOVASCULAR: Normal S1 and S2. Regular rate and rhythm, No murmurs, gallops, or rubs. PMI is at the fourth intercostal space at the midclavicular line. LUNGS: Clear to auscultation bilaterally. ABDOMEN: Soft, nontender, and nondistended. No hepatosplenomegaly. Positive bowel sounds. EXTREMITIES: No evidence of edema, clubbing, or cyanosis. DEEPTHI,EUFEMIA Aug 18, 2017 18:46
[2017-08-18] MEDS ORDERED: Dyna-Hex 2% Top Sol 2oz TOPIC SCH (20:00)
[2017-08-18] MEDS ORDERED: Depakote 500mg tab ORAL SCH (21:00)
[2017-08-18] MEDS ORDERED: Metoprolol 25mg tab ORAL SCH (21:00)
[2017-08-18] MEDS ORDERED: Phenytoin 100mg cap ORAL SCH (21:00)
--- NOTE | 2017-08-18 23:13 | General Progress Note ---
Assessment/Plan Status: stable, progressing Assessment/Plan encephalopathy agitation Subjective Date patient seen: Aug 18, 2017 Neurologic/Psychiatric: Reports: anxiety, depressed, emotional problems Allergies: Coded Allergies: AMOXICILLIN (Verified Allergy, Severe, HIVES, RASH, 11/14/13) ACETAMINOPHEN (Verified Allergy, Mild, HIVES, GI UPSET, 11/14/13) CODEINE (Unverified Allergy, Unknown, Rash, 02/26/14) NSAIDS (NON-STEROIDAL ANTI-INFLAMMA (Verified Allergy, Unknown, 02/24/14) Patient allergic to all NSAid's according to Dr. Jarrett. Subjective aax1, anxiety Objective Last 24 Hour Vital Signs Date Time Temp Pulse Resp B/P (MAP) Pulse Ox O2 Delivery O2 Flow Rate FiO2 08/18/17 09:26 80 138/78 08/18/17 08:00 85 08/18/17 08:00 97.9 80 18 138/78 98 Nasal Cannula 2.0 08/18/17 04:06 97.9 69 18 111/54 Nasal Cannula 08/18/17 03:34 83 08/18/17 00:00 92 08/18/17 00:00 98.4 74 18 109/50 96 Nasal Cannula Intake and Output 08/17/17 08/18/17 19:00 07:00 Intake Total 775 ml 220 ml Balance 775 ml 220 ml Intake Oral 720 ml 220 ml IV Total 55 ml # Voids 1 7 Laboratory Tests 08/18/17 05:25: White Blood Count 13.8H, Red Blood Count 3.21L, Hemoglobin 10.6L, Hematocrit 33.1L, Mean Corpuscular Volume 103H, Mean Corpuscular Hemoglobin 33.0H, Mean Corpuscular Hemoglobin Concent 32.0, Red Cell Distribution Width 15.6H, Platelet Count 247, Mean Platelet Volume 6.2L, Neutrophils (%) (Auto) 67.3, Lymphocytes (%) (Auto) 20.4, Monocytes (%) (Auto) 8.7, Eosinophils (%) (Auto) 3.4H, Basophils (%) (Auto) 0.3, Sodium Level 139, Potassium Level 4.5, Chloride Level 104, Carbon Dioxide Level 26, Anion Gap 9, Blood Urea Nitrogen 12, Creatinine 0.6, Estimat Glomerular Filtration Rate , Glucose Level 84, Calcium Level 8.4L, Phosphorus Level 3.6, Magnesium Level 1.9, Total Bilirubin 0.9, Aspartate Amino Transf (AST/SGOT) 27, Alanine Aminotransferase (ALT/SGPT) 27, Alkaline Phosphatase 81, Total Protein 6.8, Albumin 2.5L, Globulin 4.3, Albumin/ Globulin Ratio 0.6L Height (Feet): 5 Height (Inches): 0.00 Weight (Pounds): 120 General Appearance: no apparent distress, alert, confused, agitated Neurologic: alert, responsive, disoriented, depressed affect El Doss M.D. Aug 18, 2017 23:13
--- NOTE | 2017-08-18 23:14 | Psych Consult Progress Note ---
Psych Consult Progress Note Consult 08/17/17 Vital Signs Last 24 Hour Vital Signs Date Time Temp Pulse Resp B/P (MAP) Pulse Ox O2 Delivery O2 Flow Rate FiO2 08/18/17 09:26 80 138/78 08/18/17 08:00 85 08/18/17 08:00 97.9 80 18 138/78 98 Nasal Cannula 2.0 08/18/17 04:06 97.9 69 18 111/54 Nasal Cannula 08/18/17 03:34 83 08/18/17 00:00 92 08/18/17 00:00 98.4 74 18 109/50 96 Nasal Cannula Labs Laboratory Tests Test 08/18/17 05:25 White Blood Count 13.8 K/UL (4.8-10.8) H Red Blood Count 3.21 M/UL (4.20-5.40) L Hemoglobin 10.6 G/DL (12.0-16.0) L Hematocrit 33.1 % (37.0-47.0) L Mean Corpuscular Volume 103 FL (80-99) H Mean Corpuscular Hemoglobin 33.0 PG (27.0-31.0) H Mean Corpuscular Hemoglobin Concent 32.0 G/DL (32.0-36.0) Red Cell Distribution Width 15.6 % (11.6-14.8) H Platelet Count 247 K/UL (150-450) Mean Platelet Volume 6.2 FL (6.5-10.1) L Neutrophils (%) (Auto) 67.3 % (45.0-75.0) Lymphocytes (%) (Auto) 20.4 % (20.0-45.0) Monocytes (%) (Auto) 8.7 % (1.0-10.0) Eosinophils (%) (Auto) 3.4 % (0.0-3.0) H Basophils (%) (Auto) 0.3 % (0.0-2.0) Sodium Level 139 MMOL/L (136-145) Potassium Level 4.5 MMOL/L (3.5-5.1) Chloride Level 104 MMOL/L (98-107) Carbon Dioxide Level 26 MMOL/L (21-32) Anion Gap 9 mmol/L (5-15) Blood Urea Nitrogen 12 mg/dL (7-18) Creatinine 0.6 MG/DL (0.55-1.30) Estimat Glomerular Filtration Rate mL/min (>60) Glucose Level 84 MG/DL (74-106) Calcium Level 8.4 MG/DL (8.5-10.1) L Phosphorus Level 3.6 MG/DL (2.5-4.9) Magnesium Level 1.9 MG/DL (1.8-2.4) Total Bilirubin 0.9 MG/DL (0.2-1.0) Aspartate Amino Transf (AST/SGOT) 27 U/L (15-37) Alanine Aminotransferase (ALT/SGPT) 27 U/L (12-78) Alkaline Phosphatase 81 U/L (46-116) Total Protein 6.8 G/DL (6.4-8.2) Albumin 2.5 G/DL (3.4-5.0) L Globulin 4.3 g/dL Albumin/Globulin Ratio 0.6 (1.0-2.7) L Problems: (1) Sepsis Status: Acute (2) Altered mental status Status: Acute (3) Ecchymoses, spontaneous Status: Acute (4) Chest wall contusion Status: Acute (5) Hip sprain Status: Acute (6) Multiple injuries due to trauma Status: Acute (7) Contusion of left hip Status: Acute (8) Age related osteoporosis Status: Acute (9) Fall Status: Acute (10) Pubic ramus fracture Status: Acute (11) mechanical fall Status: Acute (12) Fall Status: Acute (13) Fall Status: Acute (14) Closed fracture of body of lumbar vertebra Status: Acute (15) Compression fx, lumbar spine Status: Acute (16) Compression fracture of L1 lumbar vertebra Status: Acute (17) Syncope Status: Acute (18) Knee sprain Status: Acute (19) UTI (lower urinary tract infection) Status: Acute (20) ankle sprain Status: Acute (21) Abdominal pain Status: Acute (22) Fall Status: Acute (23) Colitis Status: Acute (24) Abdominal pain Onset Date: 12/23/2014 Status: Acute (25) Abdominal pain of unknown etiology Status: Acute (26) Migraine headache Status: Acute (27) Osteoarthritis of multiple joints Status: Acute (28) H/O compression fracture of spine Status: Acute (29) Migraine headache without aura Status: Acute (30) Diverticulosis Status: Acute (31) Anemia Status: Acute (32) Osteoarthritis Status: Acute (33) Abdominal pain Status: Acute (34) Tinnitus Status: Acute (35) UTI (lower urinary tract infection) Status: Acute (36) Hyponatremia Status: Acute (37) Seizure disorder Status: Acute (38) Hyperkalemia Status: Acute (39) PAIN IN LIMB Status: Acute (40) Abdominal pain Status: Acute (41) Pyuria Status: Acute (42) Tinnitus Status: Acute (43) Closed left femoral fracture (44) Pain in limb Status: Acute (45) Seizure disorder Status: Acute (46) Gait disturbance, post-stroke Status: Acute (47) stroke, old Status: Acute (48) Dehydration Status: Acute (49) Acute blood loss anemia El Doss M.D. Aug 18, 2017 23:14
[2017-08-19] MEDS ORDERED: Flonase Nasal Inhaler 16gm NASAL SCH (09:00)
--- NOTE | 2017-08-19 17:55 | Cardiology Report ---
APPROVED REPORT EXAM: Two-dimensional and M-mode echocardiogram with Doppler and color Doppler. INDICATION Tachycardia Limited study. Technically difficult study due very combative patient. Study quality precludes accurate assessment of regional wall motion. M-mode measurements of left ventricle not obtainable. Normal left ventricular chamber size, systolic function and wall motion. Left ventricular ejection fraction estimated to be 65-70 %. No evidence of left ventricular hypertrophy. No evidence of pericardial effusion. All other cardiac chamber sizes are within normal limits. Mild focal aortic valve sclerosis with adequate cusp excursion. Mildly thickened mitral valve leaflets with normal excursion. Mild mitral annulus and aortic root calcification. Pulmonic valve not visualized. Normal tricuspid valve structure. IVC not obtainable. A color flow and spectral Doppler study was performed and revealed: No aortic insufficiency.Peak gradient of close to 20 mmhg across the aortic valve is estimated Trace mitral regurgitation. Mitral diastolic velocities suggest mild left ventricular diastolic dysfunction (Grade I). Trace tricuspid regurgitation.
[2017-08-20] MEDS ORDERED: Vitamin D 50,000 units cap ORAL SCH ×4 (10:00)
--- NOTE | 2017-08-21 12:31 | Discharge Summary ---
Discharge Summary Hospital Course Date of Admission Aug 11, 2017 at 13:31 Date of Discharge Aug 18, 2017 at 19:15 Admitting Diagnosis HIP FRACTURE HPI Elizabeth Correa is a 76 year old female who was admitted on Aug 11, 2017 at 13:31 for Hip Fracture Hospital Course dc summary #[id number] Discharge Medications Continued Medications: Aztreonam (Azactam) 1 Gm Vial 1 EA IV Q8HR, EA Chlorhex Gl/Isopropyl Alcohol (Dynahex 2% Liquid) 120 Ml Liquid 120 ML TP DAILY, ML Dextran 70/Hypromellose (Artificial Tears Eye Drops*) 15 Ml Drops 1 DROP BOTH EYES DAILY PRN for Per rx protocol, #15 ML 0 Refills Divalproex Sodium* (Depakote*) 250 Mg Tablet.dr 500 MG PO Q12HR, TAB Docusate Sodium* (Colace*) 100 Mg Capsule 100 MG ORAL THREE TIMES A DAY, CAP Ergocalciferol (Vitamin D2)* (Vitamin D*) 50,000 Unit Capsule [id number] UNIT ORAL ONCE A WEEK, CAP Famotidine (Pepcid) 20 Mg Tablet 20 MG ORAL BID, #7 TAB 0 Refills Fluticasone Propionate* (Fluticasone Propionate*) 16 G[address] [place].susp 1 SPRAY NASAL DAILY, EA Gabapentin* (Gabapentin*) 400 Mg Capsule 400 MG ORAL THREE TIMES A DAY, CAP 0 Refills Haloperidol Lactate (Haldol) 5 Mg/1 Ml Ampul 5 MG IM Q4HR PRN for For Anxiety, AMP Lorazepam* (Ativan*) 0.5 Mg Tablet 0.5 MG ORAL Q12HR PRN for Agitation, TAB Magnesium Hydroxide (Milk of Magnesia) 400 Mg/5 Ml Oral.susp 30 ML ORAL DAILY PRN for Constipation, ML Metoprolol Tartrate* (Metoprolol Tartrate*) 25 Mg Tablet 25 MG ORAL EVERY 12 HOURS, TAB Morphine Sulfate* (Morphine Sulfate*) 2 Mg/1 Ml Cartridge 2 MG IV Q3HR PRN for For Pain, EA Morphine Sulfate* (Morphine Sulfate*) 2 Mg/1 Ml Cartridge 1 MG IV Q3HR PRN for Mild Pain (Pain Scale 1-3), EA Na Phos,M-B/Na Phos,Di-Ba* (Fleet Enema*) 133 Ml Enema 133 ML RECTAL DAILY PRN for Constipation, ML 0 Refills Phenytoin Sodium Extended* (Dilantin*) 100 Mg Capsule 300 MG ORAL BEDTIME, #60 CAP 0 Refills Phosphorus (Phospha 250 Neutral Tablet) 250 Mg Tablet 250 MG ORAL TID, TAB Temazepam* (Restoril*) 7.5 Mg Capsule 7.5 MG ORAL QHS PRN for Insomnia, #10 CAP 0 Refills Tramadol Hcl* (Ultram*) 50 Mg Tablet 50 MG ORAL Q4HR PRN for Moderate Breakthru Pain (5-7), #30 TAB 0 Refills Discharge Condition Upon Discharge: stable Discharge Disposition Patient was discharged to [facility] Discharge Diagnoses: Discharge Instructions Discharge Instructions Special Instructions I have been assigned to complete a D/C Summary on this account. I was not involved in the patient management Minal Mcelroy NP ([place]) Aug 21, 2017 12:31
--- NOTE | 2017-08-21 21:30 | Discharge Summary 2 SIG ---
DATE OF ADMISSION: 08/11/2017 DATE OF DISCHARGE: 08/18/2017 REASON FOR ADMISSION: 76-year-old female with past medical history significant for seizure disorder, Alzheimer, hypertension, and gastroesophageal reflux disease, presented to emergency department after accidental traumatic fall last night with pain in the left hip. Imaging revealed acute left comminuted intertrochanteric hip fracture. Surgery consult was requested , and the patient was admitted for further management. ADMITTING DIAGNOSES: 1. Left hip acute intertrochanteric hip fracture. 2. Left hip pain secondary to fracture. 3. Leukocytosis. HOSPITAL COURSE: The patient was admitted. Surgery consult was requested. The patient undergone Cardiology evaluation , who cleared the patient for surgery. Echocardiogram revealed preserved ejection fraction of 65% to 70%. Normal wall motion. Normal left ventricular chamber size and systolic function. The patient subsequently undergone on 08/12/2017 open reduction and internal fixation of acute left comminuted intertrochanteric hip fracture. Course of recovery was uneventful. Pain management provided. Bowel regimen instituted. Sterilization Technician followed the patient. The patient was initially hypotensive after surgery, which led to slight elevation of troponin- 0.124. The patient was on the IV hydration and hypotension subsequently resolved. The patient initially was also diagnosed with dehydration with BUN -33 and creatinine -1.0. Nephrology consult was requested. Renal parameters and electrolytes were closely monitored. Nephrotoxics were avoided. When blood pressure stabilized, low dose of beta-jorge was used to manage blood pressure. Seizure precautions were maintained. No evidence of seizure activity while in the hospital. Depakote and Dilantin were continued. DVT and GI prophylaxis provided. Venous duplex of bilateral lower extremities was negative. The patient was working with physical and occupational therapists. Lipid panel was stable. Urine culture grew Pseudomonas and Enterococci with colony count only 30 to 40. However, the patient was treated with IV antibiotics secondary to persistent leukocytosis. Due to the allergy to penicillin, the patient was on Azactam. The patient had persistent leukocytosis but was afebrile. Electrolytes were replaced as needed. The patient had anemia due to the acute blood loss after surgery, which led to hemoglobin - 8.4 and hematocrit-24.4. The patient received one unit of packed red blood cells. Prior to transfer, hemoglobin -10.6 and hematocrit- 33.1. Patient still with leukocytosis- 13.8. Creatinine down to 0.6 and BUN down to 12. The patient was stable for transfer to [facility] for further management. FINAL DIAGNOSES: 1. Acute left comminuted intertrochanteric hip fracture 2. Status post open reduction internal fixation of left hip fracture. 3. Acute blood loss anemia. 4. Anemia of chronic disease. 5. Hypotension, resolved. 6. Dehydration, resolved. 7. Seizure disorder. 8. Pyuria/urinary tract infection. 9. Leukocytosis. 10. Encephalopathy. DISCHARGE MEDICATIONS: See medication reconciliation list. DISCHARGE INSTRUCTIONS: The patient was discharged to [facility]. FOLLOWUP: Follow up with medical doctor at the facility. Kvng Estrada M.D. I have been assigned to dictate discharge summary on this account and I was not involved in the patient's management. Minal Mcelroy ([facility]) N.P. DR: KETTY JOB#: [id number] CC: DEBRA
--- NOTE | 2017-08-27 17:44 | Cardiology Report ---
APPROVED REPORT EKG Measurement Heart [id number] Normal sinus rhythm Low voltage QRS Borderline ECG
== END 2017-08-18 19:15 | DRG 480 ==
LOC: EDBD 12:31 → EDUNIT# 12:31 → EMR 13:25 → 4W 13:31 → EDBEDREQ 13:54 → 2W 08-12 22:34 → 2E 08-15 11:26 → 4E 08-16 18:03 → 2E 08-16 18:58 → 4E 08-18 11:20
PROC: 0QS706Z Reposition Left Upper Femur with Intramedullary Internal Fixation Device, Open Approach (ICD-10-PCS; principal; 2017-08-12 19:30)
PROC: 02HV33Z Insertion of Infusion Device into Superior Vena Cava, Percutaneous Approach (ICD-10-PCS; 2017-08-16)
PROC: B518ZZA Fluoroscopy of Superior Vena Cava, Guidance (ICD-10-PCS; 2017-08-16)
DX: S72.142A Displaced intertrochanteric fracture of left femur, initial encounter for closed fracture (principal); G93.40 Encephalopathy, unspecified; I95.9 Hypotension, unspecified; E88.09 Other disorders of plasma-protein metabolism, not elsewhere classified; E86.0 Dehydration; N39.0 Urinary tract infection, site not specified; G30.9 Alzheimer's disease, unspecified; F02.80 Dementia in other diseases classified elsewhere, unspecified severity, without behavioral disturbance, psychotic disturbance, mood disturbance, and anxiety; D62 Acute posthemorrhagic anemia; G40.909 Epilepsy, unspecified, not intractable, without status epilepticus; D72.829 Elevated white blood cell count, unspecified; W19.XXXA Unspecified fall, initial encounter; Z86.73 Personal history of transient ischemic attack (TIA), and cerebral infarction without residual deficits; W18.30XA Fall on same level, unspecified, initial encounter; Y92.9 Unspecified place or not applicable; M81.0 Age-related osteoporosis without current pathological fracture; K21.9 Gastro-esophageal reflux disease without esophagitis; I10 Essential (primary) hypertension; F32.9 Major depressive disorder, single episode, unspecified; F41.9 Anxiety disorder, unspecified; G47.00 Insomnia, unspecified; H93.19 Tinnitus, unspecified ear; R00.0 Tachycardia, unspecified; Z88.0 Allergy status to penicillin
CPT/HCPCS: 36415; 36569; 71045; 72170; 73502; 76000; 76937; 80053; 80061; 80164; 80185; 81003; 82533; 82550; 82607; 82728; 82746; 82977; 83036; 83540; 83550; 83735; 83880; 84100; 84443; 84484; 84550; 85007; 85025; 85610; 86140; 86850; 86900; 86901; 86920; 87081; 87086; 87181; 93005; 93306; 93970; 94003; 94150; 99285; C9399; J2250